=== PATIENT | female | born 1965 | race American Indian/Alaskan Native ===

== ENCOUNTER 2016-12-02 16:05 | Emergency (ER) | payer BC, OTHER ==
--- NOTE | 2016-12-02 21:05 | Emergency Department Report ---
ED Lower Extremity HPI - General Chief Complaint: Extremity Injury, Lower Stated Complaint: LFT FOOT PAIN Time Seen by Provider: 12/02/16 21:00 Source: patient Mode of arrival: Wheelchair Limitations: No Limitations - History of Present Illness Initial Comments: 51-year-old female comes in with complaint of pain and swelling to her left foot 3 days. She reports that the pain is the ball of her foot. She does admit that she had a fall a couple weeks ago she denied any injury at that time now she states she can't put her shoe on since yesterday. She does have a past medical history of diabetes she is on insulin Novolin 70/30 12 units twice a day. As well as hypertension she is on the nifedipine 30 mg one tablet by mouth daily. Injury: Foot: Left Type of Injury: unknown Place: home Severity: moderate Context: fall - Related Data Home Medications Medication Instructions Recorded Confirmed Last Taken Insulin NPH/Regular [NovoLIN 70/30] 7 unit SUB-Q BIDDIAB 05/13/15 05/13/1505/12 14 units Previous Rx's Medication Instructions Recorded Last Taken Type NIFEdipine XL [Procardia Xl] 30 mg PO QDAY #30 tablet 05/13/15 Unknown Rx Ibuprofen [Motrin 600 MG tab] 600 mg PO Q8H PRN #60 tablet 12/02/16 Unknown Rx Allergies Allergy/AdvReac Type Severity Reaction Status Date / Time No Known Allergies Allergy Verified 12/02/16 17:08 ED Review of Systems ROS: Stated complaint: LFT FOOT PAIN Other details as noted in HPI Constitutional: no symptoms reported Musculoskeletal: joint swelling, arthralgia ED Past Medical Hx - Past Medical History Hx Hypertension: Yes Hx Diabetes: Yes Hx Asthma: Yes Additional medical history: bronchitis - Surgical History Additional Surgical History: tubal ligation. LEFT ELBOW SURGERY - Social History Smoking Status: Current Every Day Smoker Substance Use Type: Alcohol - Medications Home Medications: Home Medications Medication Instructions Recorded Confirmed Last Taken Type Insulin NPH/Regular [NovoLIN 70/30] 7 unit SUB-Q BIDDIAB 05/13/15 05/13/1505/12 History 14 units NIFEdipine XL [Procardia Xl] 30 mg PO QDAY #30 tablet 05/13/15 Unknown Rx Ibuprofen [Motrin 600 MG tab] 600 mg PO Q8H PRN #60 tablet 12/02/16 Unknown Rx ED Physical Exam - General Limitations: No Limitations General appearance: alert, in no apparent distress - Head Head exam: Present: atraumatic, normocephalic - Expanded Lower Extremity Exam Left Ankle exam: Present: normal inspection Foot/Toe exam: Present: full ROM (elicits pain), tenderness (Ball of the foot), swelling (mouth swelling to the top of the foot) Gait: Positive: not tested/not observed ED Course Vital Signs 12/02/16 12/02/16 17:11 23:03 Temperature 98.4 F Pulse Rate 107 H 96 H Respiratory 18 18 Rate Blood Pressure 164/97 Blood Pressure 144/86 [Left] O2 Sat by Pulse 95 100 Oximetry ED Lower Extremity MDM - Radiology Data Radiology results: image reviewed FINDINGS: There is no evidence for acute fracture or dislocation. Mild soft tissue swelling in the dorsum of the midfoot is seen. No radiopaque foreign bodies are seen. Bony mineralization is normal. Joint spaces are maintained. Large spurs off the plantar and posterior aspects of the calcaneus are noted. IMPRESSION: No acute bony abnormality noted. Soft tissue swelling of the dorsal midfoot. - Medical Decision Making Patient's been evaluated by this provider and faster. Discussed with patient that we will go ahead and do an x-ray of her left foot to be sure there is no pathology for her reason for foot pain. Verbalized understanding Critical care attestation.: If time is entered above; I have spent that time in minutes in the direct care of this critically ill patient, excluding procedure time. ED Disposition Clinical Impression: Bone spur on posterior portion of calcaneus Sprain of left foot Qualifiers: Encounter type: initial encounter Qualified Code(s): S93.602A - Unspecified sprain of left foot, initial encounter Disposition: DISCHARGED TO HOME OR SELFCARE Is pt being admited?: No Does the pt Need Aspirin: No Condition: Stable Instructions: Foot Sprain (ED) Additional Instructions: Very importantly to follow-up with a director of training. We have referred to Dr. Desir. Take pain medicine when necessary. Prescriptions: Ibuprofen [Motrin 600 MG tab] 600 mg PO Q8H PRN #60 tablet PRN Reason: Pain Referrals: PRIMARY CARE,MD [Primary Care Provider] - 3-5 Days VIOLET DESIR DPM [Staff Physician] - 3-5 Days
[2016-12-02] MEDS ORDERED: MOTRIN PO ONE (21:55)
--- NOTE | 2016-12-02 23:02 | XRay Report ---
FINAL REPORT EXAM: XR FOOT 2V LT HISTORY: fell having pain and swelling TECHNIQUE: AP and lateral portable views of the left foot PRIORS: None. FINDINGS: There is no evidence for acute fracture or dislocation. Mild soft tissue swelling in the dorsum of the midfoot is seen. No radiopaque foreign bodies are seen. Bony mineralization is normal. Joint spaces are maintained. Large spurs off the plantar and posterior aspects of the calcaneus are noted. IMPRESSION: No acute bony abnormality noted. Soft tissue swelling of the dorsal midfoot.
[2016-12-02 23:03] VITALS: BP 144/86
== END 2016-12-02 23:35 | disposition home or self-care (01) ==
LOC: ED 16:05
DX: S93.602A Unspecified sprain of left foot, initial encounter (principal); M77.30 Calcaneal spur, unspecified foot; I10 Essential (primary) hypertension; E11.9 Type 2 diabetes mellitus without complications; J45.909 Unspecified asthma, uncomplicated; F17.200 Nicotine dependence, unspecified, uncomplicated; Z98.51 Tubal ligation status; W20.8XXA Other cause of strike by thrown, projected or falling object, initial encounter; Y93.89 Activity, other specified; Y99.8 Other external cause status; Y92.098 Other place in other non-institutional residence as the place of occurrence of the external cause
CPT/HCPCS: 99283

== ENCOUNTER 2019-10-14 10:34 | Inpatient (IN) | payer BC, MEDICAID, OTHER ==
--- NOTE | 2019-10-14 15:21 | XRay Report ---
CHEST 2 VIEWS INDICATION / CLINICAL INFORMATION: sob. COMPARISON: 05/09/15 FINDINGS: SUPPORT DEVICES: None. HEART / MEDIASTINUM: Heart is enlarged but stable. Mild pulmonary venous hypertension. LUNGS / PLEURA: No significant pulmonary or pleural abnormality. No pneumothorax. ADDITIONAL FINDINGS: No significant additional findings. IMPRESSION: 1. Cardiomegaly and pulmonary venous hypertension. No overt pulmonary edema. Signer Name: Lindy Almanza MD Signed: 10/14/2019 3:17 PM Workstation Name: [id number]
--- NOTE | 2019-10-14 16:04 | Emergency Department Report ---
<VLADIMIR FERNANDES III - Last Filed: 10/14/19 18:58> ED General Adult HPI - General Chief complaint: Adult Asthma Stated complaint: LEG PAIN/SOB Time Seen by Provider: 10/14/19 14:42 - Related Data Home Medications Medication Instructions Recorded Confirmed Last Taken Insulin NPH/Regular [NovoLIN 70/30] 7 unit SUB-Q BIDDIAB 05/13/15 05/13/15 05/12/15 14 units Previous Rx's Medication Instructions Recorded Last Taken Type NIFEdipine XL [Procardia Xl] 30 mg PO QDAY #30 tablet 05/13/15 Unknown Rx Ibuprofen [Motrin 600 MG tab] 600 mg PO Q8H PRN #60 tablet 12/02/16 Unknown Rx Allergies Allergy/AdvReac Type Severity Reaction Status Date / Time No Known Allergies Allergy Verified 12/02/16 17:08 ED Past Medical Hx - Medications Home Medications: Home Medications Medication Instructions Recorded Confirmed Last Taken Type Insulin NPH/Regular [NovoLIN 70/30] 7 unit SUB-Q BIDDIAB 05/13/15 05/13/15 05/12/15 History 14 units NIFEdipine XL [Procardia Xl] 30 mg PO QDAY #30 tablet 05/13/15 Unknown Rx Ibuprofen [Motrin 600 MG tab] 600 mg PO Q8H PRN #60 tablet 12/02/16 Unknown Rx ED Course - Reevaluation(s) Reevaluation #1: I discussed case with mid-level. Patient requires admission. I discussed plan of care with patient. I discussed all results patient. Patient agrees with plan of care and admission. Patient will be admitted to the hospitalist service. 10/14/19 18:58 - Consultations Consultation #1: Hospitalist consult for admission. Hospitalist to admit patient. 10/14/19 18:58 ED Medical Decision Making - Lab Data Result diagrams: 10/14/19 16:02 10/14/19 16:02 Critical Care Time: Yes Critical care time in (mins) excluding proc time.: 35 Critical Care Time: 35 minutes ED Disposition Clinical Impression: SOB (shortness of breath), KIDD (dyspnea on exertion), New onset of congestive heart failure, Pulmonary edema cardiac cause, Lower extremity edema CHF (congestive heart failure) Qualifiers: Heart failure type: unspecified Heart failure chronicity: acute Qualified Code(s): I50.9 - Heart failure, unspecified Disposition: DC-09 OP ADMIT IP TO THIS HOSP Is pt being admited?: Yes Does the pt Need Aspirin: No Condition: Critical Time of Disposition: 19:00 <RASTA GARCIA - Last Filed: 10/14/19 19:10> ED General Adult HPI - General Source: patient Mode of arrival: Ambulatory Limitations: No Limitations - History of Present Illness Initial comments: Patient is a 54-year-old female presents emergency room with complaints of shortness of breath that began 2 days ago. She states her shortness of breath is worse with exertion. She states that she takes approximately 6-7 steps and begins to feel short of breath. She states she has associated bilateral leg swelling and pain. She denies any cough, fever, chest pain, recent illness, palpitations, any other symptoms. Patient states she has a past medical history of diabetes, asthma, hypertension. She denies any allergies medications. ED Review of Systems ROS: Stated complaint: LEG PAIN/SOB Other details as noted in HPI Comment: All other systems reviewed and negative ED Past Medical Hx - Past Medical History Hx Hypertension: Yes Hx Diabetes: Yes Hx Asthma: Yes Additional medical history: bronchitis - Surgical History Additional Surgical History: tubal ligation. LEFT ELBOW SURGERY - Social History Smoking Status: Current Every Day Smoker Substance Use Type: Alcohol ED Physical Exam - General Limitations: No Limitations General appearance: alert, in no apparent distress - Head Head exam: Present: atraumatic, normocephalic - Eye Eye exam: Present: normal appearance - ENT ENT exam: Present: mucous membranes moist - Respiratory Respiratory exam: Present: normal lung sounds bilaterally. Absent: respiratory distress, wheezes, rales, rhonchi, stridor, chest wall tenderness, accessory muscle use, decreased breath sounds, prolonged expiratory - Cardiovascular Cardiovascular Exam: Present: regular rate, normal rhythm, normal heart sounds. Absent: systolic murmur, diastolic murmur, rubs, gallop - Extremities Exam Extremities exam: Present: pedal edema (bilateral LE edema, right greater than left, skin is very dry and hardened on the bilateral LE, no erythema, no drainage, no increased warmth) - Neurological Exam Neurological exam: Present: alert, oriented X3 - Psychiatric Psychiatric exam: Present: normal affect, normal mood - Skin Skin exam: Present: warm, dry, intact ED Course Vital Signs 12/14/19 10:55 Temperature 98.3 F Pulse Rate 93 H Respiratory 16 Rate Blood Pressure 167/72 [Left] O2 Sat by Pulse 96 Oximetry ED Medical Decision Making - Lab Data Result diagrams: 10/14/19 16:02 10/14/19 16:02 Lab Results 10/14/19 10/14/19 10/14/19 Range/Units 10:54 16:02 16:02 WBC 6.8 (4.5-11.0) K/mm3 RBC 5.32 H (3.65-5.03) M/mm3 Hgb 14.4 H (10.1-14.3) gm/dl Hct 42.5 (30.3-42.9) % MCV 80 (79-97) fl MCH 27 L (28-32) pg MCHC 34 (30-34) % RDW 15.6 H (13.2-15.2) % Plt Count 276 (140-440) K/mm3 Lymph % (Auto) 21.7 (13.4-35.0) % [place] % (Auto) 9.4 H (0.0-7.3) % Eos % (Auto) 1.0 (0.0-4.3) % Baso % (Auto) 1.0 (0.0-1.8) % Lymph # 1.5 (1.2-5.4) K/mm3 [place] # 0.6 (0.0-0.8) K/mm3 Eos # 0.1 (0.0-0.4) K/mm3 Baso # 0.1 (0.0-0.1) K/mm3 Seg Neutrophils % 66.9 (40.0-70.0) % Seg Neutrophils # 4.5 (1.8-7.7) K/mm3 Sodium 136 L (137-145) mmol/L Potassium 4.3 (3.6-5.0) mmol/L Chloride 94.0 L (98-107) mmol/L Carbon Dioxide 27 (22-30) mmol/L Anion Gap 19 mmol/L BUN 11 (7-17) mg/dL Creatinine 0.5 L (0.7-1.2) mg/dL Estimated GFR > 60 ml/min BUN/Creatinine Ratio 22 % Glucose 372 H (65-100) mg/dL POC Glucose 280 H (70-105) Calcium 9.3 (8.4-10.2) mg/dL Total Bilirubin 0.50 (0.1-1.2) mg/dL AST 14 (5-40) units/L ALT 11 (7-56) units/L Alkaline Phosphatase 114 (35-129) units/L Troponin T (0.00-0.029) ng/mL NT-Pro-B Natriuret Pep 503.0 (0-900) pg/mL Total Protein 7.5 (6.3-8.2) g/dL Albumin 3.4 L (3.9-5) g/dL Albumin/Globulin Ratio 0.8 % 10/14/19 Range/Units 17:57 WBC (4.5-11.0) K/mm3 RBC (3.65-5.03) M/mm3 Hgb (10.1-14.3) gm/dl Hct (30.3-42.9) % MCV (79-97) fl MCH (28-32) pg MCHC (30-34) % RDW (13.2-15.2) % Plt Count (140-440) K/mm3 Lymph % (Auto) (13.4-35.0) % [place] % (Auto) (0.0-7.3) % Eos % (Auto) (0.0-4.3) % Baso % (Auto) (0.0-1.8) % Lymph # (1.2-5.4) K/mm3 [place] # (0.0-0.8) K/mm3 Eos # (0.0-0.4) K/mm3 Baso # (0.0-0.1) K/mm3 Seg Neutrophils % (40.0-70.0) % Seg Neutrophils # (1.8-7.7) K/mm3 Sodium (137-145) mmol/L Potassium (3.6-5.0) mmol/L Chloride (98-107) mmol/L Carbon Dioxide (22-30) mmol/L Anion Gap mmol/L BUN (7-17) mg/dL Creatinine (0.7-1.2) mg/dL Estimated GFR ml/min BUN/Creatinine Ratio % Glucose (65-100) mg/dL POC Glucose (70-105) Calcium (8.4-10.2) mg/dL Total Bilirubin (0.1-1.2) mg/dL AST (5-40) units/L ALT (7-56) units/L Alkaline Phosphatase (35-129) units/L Troponin T < 0.010 (0.00-0.029) ng/mL NT-Pro-B Natriuret Pep (0-900) pg/mL Total Protein (6.3-8.2) g/dL Albumin (3.9-5) g/dL Albumin/Globulin Ratio % - Radiology Data Radiology results: report reviewed DUPLEX DOPPLER LOWER EXTREMITY VEINS, BILATERAL INDICATION / CLINICAL INFORMATION: BLE, right greater than left. TECHNIQUE: Duplex doppler imaging was performed through the veins of both lower extremities using venous compression and other maneuvers. COMPARISON: None available. FINDINGS: RIGHT COMMON FEMORAL VEIN: Negative. RIGHT FEMORAL VEIN: Negative. RIGHT POPLITEAL VEIN: Negative. RIGHT CALF VEINS: Negative. LEFT COMMON FEMORAL VEIN: Negative. LEFT FEMORAL VEIN: Negative. LEFT POPLITEAL VEIN: Negative. LEFT CALF VEINS: Negative. ADDITIONAL FINDINGS: Bilateral enlarged groin lymph nodes measuring up to 1.5 cm in short axis. IMPRESSION: 1. No sonographic evidence for DVT in either lower extremity. 2. Bilateral enlarged groin lymph nodes. Signer Name: Lindy Almanza MD Signed: 10/14/2019 4:12 PM Workstation Name: [id number] Transcribed By: DT Dictated By: Shamar Almanza MD Electronically Authenticated By: Shamar Almanza MD Signed Date/Time: 10/14/19 1612 CTA CHEST WITH CONTRAST INDICATION / CLINICAL INFORMATION: SOB, hypoxia. TECHNIQUE: Axial CT images were obtained through the chest after injection of 100 MLO Omnipaque 350 IV contrast. 3 plane MIP and/or 3D reconstructions were produced. All CT scans at this location are per formed using CT dose reduction for ALARA by means of automated exposure control. COMPARISON: CT dated 05/13/15 FINDINGS: PULMONARY ARTERIES: No pulmonary emboli. THORACIC AORTA: No significant abnormality. HEART: Enlarged but stable. Mitral valve calcifications are unchanged. CORONARY ARTERIES: No significant calcification. MEDIASTINUM / MILO: No significant abnormality. PLEURA: No pleural effusion. No pneumothorax. LUNGS: Mild interstitial pulmonary edema. Peribronchial cuffing. ADDITIONAL FINDINGS: Right thyroid nodule is unchanged. UPPER ABDOMEN: No acute findings. SKELETAL STRUCTURES: No significant osseous abnormality. IMPRESSION: 1. No CT evidence for pulmonary embolism. 2. Cardiomegaly with mild interstitial pulmonary edema. Signer Name: Lindy Almanza MD Signed: 10/14/2019 6:19 PM Workstation Name: [id number] Transcribed By: DT Dictated By: Shamar Almanza MD Electronically Authenticated By: Shamar Almanza MD Signed Date/Time: 10/14/191818 DD/ 16 TD/TT: CHEST 2 VIEWS INDICATION / CLINICAL INFORMATION: sob. COMPARISON: 05/09/15 FINDINGS: SUPPORT DEVICES: None. HEART / MEDIASTINUM: Heart is enlarged but stable. Mild pulmonary venous hypertension. LUNGS / PLEURA: No significant pulmonary or pleural abnormality. No pneumothorax. ADDITIONAL FINDINGS: No significant additional findings. IMPRESSION: 1. Cardiomegaly and pulmonary venous hypertension. No overt pulmonary edema. Signer Name: Lindy Almanza MD Signed: 10/14/2019 3:17 PM Workstation Name: [id number] Transcribed By: DT Dictated By: Shamar Almanza MD Electronically Authenticated By: Shamar Almanza MD Signed Date/Time: 10/14/19 1517 - Medical Decision Making Patient is a 54-year-old female presents emergency room with complaints of shortness of breath that began 2 days ago. She states her shortness of breath is worse with exertion. She states that she takes approximately 6-7 steps and begins to feel short of breath. She states she has associated bilateral leg swelling and pain. She denies any cough, fever, chest pain, recent illness, palpitations, any other symptoms. Patient states she has a past medical history of diabetes, asthma, hypertension. She denies any allergies medications. Upon laying flat patient's oxygen saturation drops to 88%. Upon ambulating patient saturation is around 90%. Patient denies any history of pulmonary hypertension or CHF. CXR: . Cardiomegaly and pulmonary venous hypertension. No overt pulmonary edema. CTA chest: 1. No CT evidence for pulmonary embolism. 2. Cardiomegaly with mild interstitial pulmonary edema. doppler US BLE: 1. No sonographic evidence for DVT in either lower extremity. 2. Bilateral enlarged groin lymph nodes. Patient was evaluated by Dr. Marivel Reynolds who recommended admission for new onset CHF versus pulmonary hypertension. discussed case with Dr. Fernandes who presented patient to the hospitalist for admission. - Differential Diagnosis CHF, pulmonary HTN, AAA, PNA, PTE, asthma Critical care attestation.: If time is entered above; I have spent that time in minutes in the direct care of this critically ill patient, excluding procedure time. ED Disposition Is pt being admited?: Yes Does the pt Need Aspirin: No
--- NOTE | 2019-10-14 16:17 | Vascular Lab Report ---
DUPLEX DOPPLER LOWER EXTREMITY VEINS, BILATERAL INDICATION / CLINICAL INFORMATION: BLE, right greater than left. TECHNIQUE: Duplex doppler imaging was performed through the veins of both lower extremities using venous michelle jennie and other maneuvers. COMPARISON: None available. FINDINGS: RIGHT COMMON FEMORAL VEIN: Negative. RIGHT FEMORAL VEIN: Negative. RIGHT POPLITEAL VEIN: Negative. RIGHT CALF VEINS: Negative. LEFT COMMON FEMORAL VEIN: Negative. LEFT FEMORAL VEIN: Negative. LEFT POPLITEAL VEIN: Negative. LEFT CALF VEINS: Negative. ADDITIONAL FINDINGS: Bilateral enlarged groin lymph nodes measuring up to 1.5 cm in short axis. IMPRESSION: 1. No sonographic evidence for DVT in either lower extremity. 2. Bilateral enlarged groin lymph nodes. Signer Name: Lindy Almanza MD Signed: 10/14/2019 4:12 PM Workstation Name: [id number]
[2019-10-14 16:19] LABS: Basophils # (Auto) 0.1 K/mm3 (0.0-0.1); Eosinophils # (Auto) 0.1 K/mm3 (0.0-0.4); Hematocrit 42.5 % (30.3-42.9); Hemoglobin 14.4 gm/dl (10.1-14.3); Lymphocytes # (Auto) 1.5 K/mm3 (1.2-5.4); Lymphocytes % (Auto) 21.7 % (13.4-35.0); Mean Corpuscular HGB Conc 34 % (30-34); Mean Corpuscular Volume 80 fl (79-97); Monocytes # (Auto) 0.6 K/mm3 (0.0-0.8); Monocytes % (Auto) 9.4 % (0.0-7.3); Platelet Count 276 K/mm3 (140-440); Red Blood Count 5.32 M/mm3 (3.65-5.03); Red Cell Distribution Width 15.6 % (13.2-15.2)
--- NOTE | 2019-10-14 16:33 | Event Note ---
Face to Face: For this encounter I have reviewed the PA/CONSERVATION AGENT documentation, treatment plan, medical decision making, and I had face to face time with this patient. Mrs. Davis is a 54-year-old female with history of hypertension, diabetes mellitus, asthma who presents for shortness of breath for 2 days. Shortness of breath is exertional. She is only able to walk since the 6-7 steps at a time due to the shortness of breath. I have reviewed chest radiograph images and radiology impression. I recommend CT angiogram chest. I am concerned for acute heart failure. On exam her lower extremities has lichenified skin with obvious chronic venous stasis. Recommend hospitalist service admission for new onset acute heart failure
[2019-10-14 16:47] LABS: Alanine Aminotransferase 11 units/L (7-56); Albumin 3.4 g/dL (3.9-5); BUN/Creatinine Ratio 22; Blood Urea Nitrogen 11 mg/dL (7-17); Calcium 9.3 mg/dL (8.4-10.2); Hemolysis Index 3
--- NOTE | 2019-10-14 18:23 | Cat Scan Report ---
CTA CHEST WITH CONTRAST INDICATION / CLINICAL INFORMATION: SOB, hypoxia. TECHNIQUE: Axial CT images were obtained through the chest after injection of 100 MLO Omnipaque 350 IV contrast. 3 plane MIP and/or 3D reconstructions were produced. All CT scans at this location are performed usi ng CT dose reduction for ALARA by means of automated exposure control. COMPARISON: CT dated 05/13/15 FINDINGS: PULMONARY ARTERIES: No pulmonary emboli. THORACIC AORTA: No significant abnormality. HEART: Enlarged but stable. Mitral valve calcifications are unchanged. CORONARY ARTERIES: No significant calcification. MEDIASTINUM / MILO: No significant abnormality. PLEURA: No pleural effusion. No pneumothorax. LUNGS: Mild interstitial pulmonary edema. Peribronchial cuffing. ADDITIONAL FINDINGS: Right thyroid nodule is unchanged. UPPER ABDOMEN: No acute findings. SKELETAL STRUCTURES: No significant osseous abnormality. IMPRESSION: 1. No CT evidence for pulmonary embolism. 2. Cardiomegaly with mild interstitial pulmonary edema. Signer Name: Lindy Almanza MD Signed: 10/14/2019 6:19 PM Workstation Name: [id number]
--- NOTE | 2019-10-14 18:57 | History and Physical Report ---
History of Present Illness Chief complaint: I feel weak History of present illness: 54 YO Female with MO, Obesity Hypoventilation Syndrome, HTN, DM, Lymphedema, Asthma presents to ED for evaluation. Pt states that she has experienced shortness of breath over the past 4 days with worsening symptoms over the past 2 days. Pt acknowledges decreased exercise tolerance, Orthopnea/PND, dypsnea at rest, dypsnea on exertion, leg edema. Pt transported to [facility] via private vehicle. Pt seen and evaluated in ED and found to have symptoms consistent with Systolic/Diastolic CHF as well as Chest x ray with pulmonary congestion. Pt admitted to telemetry and treated with supplemental oxygen and supportive care, Pt denies fever, chills, CP, Palpitations, NVD, Trauma, BRBPR, Productive Cough, Wheezing, sore Throat, skin rash or recent ill contacts. Prior admission on 11/01/14 reviewed. Cardiology consulted in ED. Echo pending at time of admission. All medication listed at time of admission has been reconciled. Past History Past Medical History: other (see HPI) Past Surgical History: No surgical history, Other (reviewed) Social history: single Family history: diabetes, hypertension Medications and Allergies Allergies Allergy/AdvReac Type Severity Reaction Status Date / Time No Known Allergies Allergy Verified 12/02/16 17:08 Home Medications Medication Instructions Recorded Confirmed Last Taken Type Insulin NPH/Regular [NovoLIN 70/30] 7 unit SUB-Q BIDDIAB 05/13/15 05/13/15 05/12/15 History 14 units NIFEdipine XL [Procardia Xl] 30 mg PO QDAY #30 tablet 05/13/15 Unknown Rx Ibuprofen [Motrin 600 MG tab] 600 mg PO Q8H PRN #60 tablet 12/02/16 Unknown Rx Review of Systems Constitutional: weakness, no weight loss, no weight gain, no fever Ears, nose, mouth and throat: no ear pain, no ear discharge, no tinnitis, no decreased hearing, no nasal congestion Breasts: no change in shape, no swelling, no mass Cardiovascular: orthopnea, edema, shortness of breath, dyspnea on exertion, paroxysmal nocturnal dyspnea, decreased exercise tolerance Respiratory: no cough, no cough with sputum, no excessive sputum, no hemoptysis Gastrointestinal: no abdominal pain, no nausea, no vomiting, no hematemesis Genitourinary Female: no pelvic pain, no menorrhagia, no dysuria, no incomplete emptying, no urge incontinence Rectal: no pain, no incontinence, no bleeding Musculoskeletal: no neck stiffness, no neck pain Integumentary: no rash, no redness, no wounds Neurological: no transient paralysis, no paralysis, no parathesias, no numbness, no tingling, no seizures, no syncope Psychiatric: no anxiety, no memory loss, no change in sleep habits, no insomnia, no hypersomnia, no change in libido Endocrine: no cold intolerance, no heat intolerance, no polyphagia, no polydipsia, no polyuria Hematologic/Lymphatic: lymphedema, no easy bruising, no easy bleeding, no lymphadenopathy Allergic/Immunologic: no urticaria, no allergic rhinitis, no persistent infections, no anaphylaxis Exam - Constitutional Vitals: Temp Pulse Resp BP Pulse Ox 98.3 F 93 H 16 167/72 96 10/14/19 10:55 10/14/19 10:55 10/14/19 10:55 10/14/19 10:55 10/14/19 10:55 General appearance: Present: mild distress, obese - EENT Eyes: Present: PERRL ENT: hearing intact, clear oral mucosa - Neck Neck: Present: supple, normal ROM - Respiratory Respiratory effort: normal Respiratory: bilateral: diminished, rhonchi - Cardiovascular Heart Sounds: Present: S1 & S2. Absent: rub, click - Extremities Extremities: pulses symmetrical Extremity abnormal: edema Peripheral Pulses: within normal limits - Abdominal General gastrointestinal: Present: soft, non-tender, non-distended, normal bowel sounds Female genitourinary: Present: normal - Integumentary Integumentary: Present: clear, warm, dry - Musculoskeletal Musculoskeletal: generalized weakness - Psychiatric Psychiatric: appropriate mood/affect, intact judgment & insight - Neurologic Neurologic: CNII-XII intact, moves all extremities Results - Labs CBC & Chem 7: 10/14/19 16:02 10/14/19 16:02 Labs: Abnormal lab results 10/14/19 10/14/19 10/14/19 Range/Units 10:54 16:02 16:02 RBC 5.32 H (3.65-5.03) M/mm3 Hgb 14.4 H (10.1-14.3) gm/dl MCH 27 L (28-32) pg RDW 15.6 H (13.2-15.2) % [place] % (Auto) 9.4 H (0.0-7.3) % Sodium 136 L (137-145) mmol/L Chloride 94.0 L (98-107) mmol/L Creatinine 0.5 L (0.7-1.2) mg/dL Glucose 372 H (65-100) mg/dL POC Glucose 280 H (70-105) Albumin 3.4 L (3.9-5) g/dL Assessment and Plan - Patient Problems (1) CHF (congestive heart failure) Current Visit: Yes Status: Acute Qualifiers: Heart failure type: unspecified Heart failure chronicity: acute Qualified Code(s): I50.9 - Heart failure, unspecified Plan to address problem: Admit to telemetry, Echo, thyroid panel, chest x ray, strict I/O, daily weight, diuresis, afterload reduction, blood pressure control, supplemental oxygen, pulse oximetry, cardiology consulted in ED. (2) Obesity hypoventilation syndrome Current Visit: Yes Status: Acute Plan to address problem: supplemental oxygen, nebulizer therapy, NIPPV as clinically indicated, pulse oximetry (3) Diabetes Current Visit: Yes Status: Acute Plan to address problem: ADA diet, insulin, accu check, hypoglycemia protocol (4) HTN (hypertension) Current Visit: Yes Status: Acute Qualifiers: Hypertension type: essential hypertension Qualified Code(s): I10 - Essential (primary) hypertension Plan to address problem: Monitor BP q shift, continue medical management. (5) DVT prophylaxis Current Visit: Yes Status: Acute Plan to address problem: SCD to BLE while in bed, prophylactic lovenox
[2019-10-14] MEDS ORDERED: ALBUTEROL 2.5 MG/3 ML NEBU IH PRN (18:58)
[2019-10-14] MEDS ORDERED: ONDANSETRON 4 MG/2 ML INJ IV PRN (18:58)
[2019-10-14 20:04] LABS: Free T4 (Free Thyroxine) 1.11 ng/dL (0.76-1.46)
[2019-10-14] MEDS: HEPARIN 5,000 UNIT/1 ML VIAL SUB-Q SCH (22:30)
[2019-10-14] MEDS: METOPROLOL TARTRATE 25 MG TAB PO SCH (22:31)
[2019-10-14] MEDS: ACETAMINOPHEN 325 MG TAB PO PRN (22:32)
[2019-10-14] MEDS: LISINOPRIL 5 MG TAB PO SCH (22:32)
[2019-10-14] MEDS: INSULIN LISPRO 100 UNIT/ML SUB-Q SCH (22:33)
[2019-10-14] MEDS ORDERED: diphenhydrAMINE 25 MG CAP PO ONE (23:00)
[2019-10-14 23:36] LABS: Bacteria,Urine 1+ /HPF (Negative); Bilirubin,Urine NEG (Negative); Blood,Urine MOD (Negative); Color,Urine Yellow (Yellow); Mucus,Urine FEW /HPF; Urobilinogen,Urine < 2.0 mg/dL (<2.0)
[2019-10-15] MEDS: NIFEdipine XL 30 MG TAB PO SCH (05:54)
[2019-10-15] MEDS: FUROSEMIDE 20 MG/2 ML INJ IV SCH ×2 (05:54→17:34)
[2019-10-15 08:21] LABS: BUN/Creatinine Ratio 20; Blood Urea Nitrogen 10 mg/dL (7-17); Hemolysis Index 16
[2019-10-15] MEDS: INSULIN LISPRO 100 UNIT/ML SUB-Q SCH ×4 (08:49→22:14)
[2019-10-15] MEDS: METOPROLOL TARTRATE 25 MG TAB PO SCH ×2 (09:04→17:34)
[2019-10-15] MEDS: HEPARIN 5,000 UNIT/1 ML VIAL SUB-Q SCH ×2 (09:06→22:13)
[2019-10-15] MEDS: LISINOPRIL 5 MG TAB PO SCH ×2 (09:06→22:12)
--- NOTE | 2019-10-15 09:49 | Progress Note ---
Assessment and Plan Assessment and plan: Acute diastolic CHF (congestive heart failure) Current Visit: Yes Status: Acute Heart failure medications, input output monitoring, follow echocardiogram Cardiology following, low-sodium diet, fluid restriction, -- Obesity hypoventilation syndrome Current Visit: Yes Status: Acute supplemental oxygen, nebulizer therapy, NIPPV as clinically indicated, pulse oximetry Titrate O2 sats to more than 90% Outpatient sleep study to rule out obstructive sleep apnea CPAP BiPAP at night and as needed --Type II diabetes mellitus; uncontrolled Current Visit: Yes Status: Acute Accu check, sliding scale coverage , ADA diet Insulin as needed ,hypoglycemia protocol --HTN (hypertension); moderate control Current Visit: Yes Status: Acute Continue current antihypertensives, PRN medications --Morbid obesity; BMI >50 Dietary modification exercise as tolerated and weight reduction Patient may benefit from evaluation by bariatric team For weight reduction as outpatient when medically stable --DVT prophylaxis Current Visit: Yes Status: Acute SCD to BLE while in bed, prophylactic lovenox. Closely monitor the patient and adjust management as needed Plan of care reviewed with the patient and her nurse Disposition; possible discharge in 1 to 2 days if stable And when cleared by cardiology History Interval history: Patient seen and examined medical records reviewed Patient complains of mild shortness of breath Blood sugars are uncontrolled Patient denies any chest pain Vital signs reviewed Hospitalist Physical - Constitutional Vitals: Temp Pulse Resp BP Pulse Ox 98.3 F 83 18 155/73 96 10/15/19 08:24 10/15/19 09:06 10/15/19 08:24 10/15/19 08:24 10/15/19 09:05 General appearance: Present: mild distress, well-nourished, obese (Morbidly obese) - EENT Eyes: Present: PERRL, EOM intact - Neck Neck: Present: supple, normal ROM - Respiratory Respiratory effort: normal Respiratory: bilateral: diminished, rales, negative: rhonchi, wheezing - Cardiovascular Rhythm: regular Heart Sounds: Present: S1 & S2 - Extremities Extremities: no ischemia, No edema - Abdominal General gastrointestinal: soft, non-tender, non-distended, normal bowel sounds - Integumentary Integumentary: Present: clear, warm - Psychiatric Psychiatric: appropriate mood/affect, cooperative - Neurologic Neurologic: CNII-XII intact, moves all extremities Results - Labs CBC & Chem 7: 10/14/19 16:02 10/15/19 06:58 Labs: Laboratory Last Values WBC 6.8 K/mm3 (4.5-11.0) 10/14/19 16:02 RBC 5.32 M/mm3 (3.65-5.03) H 10/14/19 16:02 Hgb 14.4 gm/dl (10.1-14.3) H 10/14/19 16:02 Hct 42.5 % (30.3-42.9) 10/14/19 16:02 MCV 80 fl (79-97) 10/14/19 16:02 MCH 27 pg (28-32) L 10/14/19 16:02 MCHC 34 % (30-34) 10/14/19 16:02 RDW 15.6 % (13.2-15.2) H 10/14/19 16:02 Plt Count 276 K/mm3 (140-440) 10/14/19 16:02 Lymph % (Auto) 21.7 % (13.4-35.0) 10/14/19 16:02 [place] % (Auto) 9.4 % (0.0-7.3) H 10/14/19 16:02 Eos % (Auto) 1.0 % (0.0-4.3) 10/14/19 16:02 Baso % (Auto) 1.0 % (0.0-1.8) 10/14/19 16:02 Lymph # 1.5 K/mm3 (1.2-5.4) 10/14/19 16:02 [place] # 0.6 K/mm3 (0.0-0.8) 10/14/19 16:02 Eos # 0.1 K/mm3 (0.0-0.4) 10/14/19 16:02 Baso # 0.1 K/mm3 (0.0-0.1) 10/14/19 16:02 Seg Neutrophils % 66.9 % (40.0-70.0) 10/14/19 16:02 Seg Neutrophils # 4.5 K/mm3 (1.8-7.7) 10/14/19 16:02 Sodium 138 mmol/L (137-145) 10/15/19 06:58 Potassium 3.7 mmol/L (3.6-5.0) 10/15/19 06:58 Chloride 95.2 mmol/L (98-107) L 10/15/19 06:58 Carbon Dioxide 26 mmol/L (22-30) 10/15/19 06:58 Anion Gap 21 mmol/L 10/15/19 06:58 BUN 10 mg/dL (7-17) 10/15/19 06:58 Creatinine 0.5 mg/dL (0.7-1.2) L 10/15/19 06:58 Estimated GFR > 60 ml/min 10/15/19 06:58 BUN/Creatinine Ratio 20 % 10/15/19 06:58 Glucose 310 mg/dL (65-100) H 10/15/19 06:58 POC Glucose 314 (70-105) H 10/15/19 07:41 Calcium 9.0 mg/dL (8.4-10.2) 10/15/19 06:58 Magnesium 1.70 mg/dL (1.7-2.3) 10/14/19 19:11 Total Bilirubin 0.50 mg/dL (0.1-1.2) 10/14/19 16:02 AST 14 units/L (5-40) 10/14/19 16:02 ALT 11 units/L (7-56) 10/14/19 16:02 Alkaline Phosphatase 114 units/L (35-129) 10/14/19 16:02 Troponin T < 0.010 ng/mL (0.00-0.029) 10/14/19 19:11 NT-Pro-B Natriuret Pep 503.0 pg/mL (0-900) 10/14/19 16:02 Total Protein 7.5 g/dL (6.3-8.2) 10/14/19 16:02 Albumin 3.4 g/dL (3.9-5) L 10/14/19 16:02 Albumin/Globulin Ratio 0.8 % 10/14/19 16:02 TSH 2.720 mlU/mL (0.270-4.200) 10/14/19 19:11 Free T4 1.11 ng/dL (0.76-1.46) 10/14/19 19:11 Urine Color Yellow (Yellow) 10/14/19 Unknown Urine Turbidity Slightly-cloudy (Clear) 10/14/19 Unknown Urine pH 5.0 (5.0-7.0) 10/14/19 Unknown Ur Specific [place] 1.029 (1.003-1.030) 10/14/19 Unknown Urine Protein 30 mg/dl mg/dL (Negative) 10/14/19 Unknown Urine Glucose (UA) >=500 mg/dL (Negative) 10/14/19 Unknown Urine Ketones Neg mg/dL (Negative) 10/14/19 Unknown Urine Blood Mod (Negative) 10/14/19 Unknown Urine Nitrite Neg (Negative) 10/14/19 Unknown Urine Bilirubin Neg (Negative) 10/14/19 Unknown Urine Urobilinogen < 2.0 mg/dL (<2.0) 10/14/19 Unknown Ur Leukocyte Esterase Neg (Negative) 10/14/19 Unknown Urine WBC (Auto) 1.0 /HPF (0.0-6.0) 10/14/19 Unknown Urine RBC (Auto) 3.0 /HPF (0.0-6.0) 10/14/19 Unknown U Epithel Cells (Auto) 7.0 /HPF (0-13.0) 10/14/19 Unknown Urine Bacteria (Auto) 1+ /HPF (Negative) 10/14/19 Unknown Urine Mucus Few /HPF 10/14/19 Unknown Active Medications - Current Medications Current Medications: Generic Name Dose Route Start Last Admin Trade Name Freq PRN Reason Stop Dose Admin Acetaminophen 650 mg 10/14/19 18:58 10/14/19 22:32 Tylenol PO 650 mg Q4H PRN Administration Pain MILD(1-3)/Fever >100.5/HORN Albuterol 2.5 mg 10/14/19 22:00 Proventil IH Q4HRT PRN Shortness Of Breath Furosemide 20 mg 10/15/19 06:00 10/15/19 05:54 Lasix IV 20 mg 0600,1800 ARIANA Administration Heparin Sodium (Porcine) 5,000 unit 10/14/19 22:00 10/15/19 09:06 Heparin SUB-Q 5,000 unit Q12HR ARIANA Administration Insulin Human Isoph/Insulin Regular 15 unit 10/15/19 17:00 Humulin 70/30 SUB-Q BIDDIAB ARIANA Insulin Human Isoph/Insulin Regular 10 unit 10/15/19 10:44 Humulin 70/30 SUB-Q 10/15/19 10:45 ONCE ONE Insulin Human Lispro 0 unit 10/14/19 23:15 10/15/19 08:49 Humalog SUB-Q 6 unit ACHS ARIANA Administration Protocol Lisinopril 5 mg 10/14/19 22:00 10/15/19 09:06 Zestril PO 5 mg BID ARIANA Administration Metoprolol Tartrate 12.5 mg 10/14/19 22:00 10/15/19 09:04 Metoprolol PO 12.5 mg BID@0800,1700 ARIANA Administration Nifedipine 30 mg 10/15/19 06:00 10/15/19 05:54 Procardia Xl PO 30 mg QDAY@0600 ARIANA Administration Ondansetron HCl 4 mg 10/14/19 18:58 Zofran IV Q8H PRN Nausea And Vomiting Sodium Chloride 10 ml 10/14/19 22:00 10/15/19 09:09 Sodium Chloride Flush Syringe 10 Ml IV 10 ml BID ARIANA Administration Sodium Chloride 10 ml 10/14/19 18:58 Sodium Chloride Flush Syringe 10 Ml IV PRN PRN LINE FLUSH
--- NOTE | 2019-10-15 10:31 | Consultation ---
History of Present Illness Consult date: 10/15/19 Consult reason: congestive heart failure History of present illness: 54-year-old obese -[place] female orthopnea and dyspnea on mild exer tion. Hi chest x-ray shows cardiomegaly with pulmonary vascular congestion patient admitted for congestive heart failure. She denies any chest pains at this time but states that she has not been compliant with DrRobbin patient's as an outpatient. Past History Past Medical History: anemia, diabetes, GERD, heart failure, hypertension, hyperlipidemia Past Surgical History: No surgical history, Other (reviewed) Social history: single Family history: diabetes, hypertension Medications and Allergies Allergies Allergy/AdvReac Type Severity Reaction Status Date / Time No Known Allergies Allergy Verified 12/02/16 17:08 Home Medications Medication Instructions Recorded Confirmed Last Taken Type Insulin NPH/Regular [NovoLIN 70/30] 7 unit SUB-Q BIDDIAB 05/13/15 10/15/19 05/12/15 History 14 units Ibuprofen [Motrin 600 MG tab] 600 mg PO Q8H PRN #60 tablet 12/02/16 10/15/19 Unknown Rx Active Meds: Active Medications Acetaminophen (Tylenol) 650 mg PO Q4H PRN PRN Reason: Pain MILD(1-3)/Fever >100.5/HORN Last Admin: 10/14/19 22:32 Dose: 650 mg Documented by: Albuterol (Proventil) 2.5 mg IH Q4HRT PRN PRN Reason: Shortness Of Breath Furosemide (Lasix) 20 mg IV 0600,1800 [facility] Last Admin: 10/15/19 05:54 Dose: 20 mg Documented by: Heparin Sodium (Porcine) (Heparin) 5,000 unit SUB-Q Q12HR [facility] Last Admin: 10/15/19 09:06 Dose: 5,000 unit Documented by: Insulin Human Isoph/Insulin Regular (Humulin 70/30) 15 unit SUB-Q BIDDIAB [facility] Insulin Human Isoph/Insulin Regular (Humulin 70/30) 10 unit SUB-Q ONCE ONE Stop: 10/15/19 10:45 Insulin Human Lispro (Humalog) 0 unit SUB-Q [facility]; Protocol Last Admin: 10/15/19 08:49 Dose: 6 unit Documented by: Lisinopril (Zestril) 5 mg PO BID [facility] Last Admin: 10/15/19 09:06 Dose: 5 mg Documented by: Metoprolol Tartrate (Metoprolol) 12.5 mg PO BID@0800,1700 [facility] Last Admin: 10/15/19 09:04 Dose: 12.5 mg Documented by: Nifedipine (Procardia Xl) 30 mg PO QDAY@0600 [facility] Last Admin: 10/15/19 05:54 Dose: 30 mg Documented by: Ondansetron HCl (Zofran) 4 mg IV Q8H PRN PRN Reason: Nausea And Vomiting Sodium Chloride (Sodium Chloride Flush Syringe 10 Ml) 10 ml IV BID [facility] Last Admin: 10/15/19 09:09 Dose: 10 ml Documented by: Sodium Chloride (Sodium Chloride Flush Syringe 10 Ml) 10 ml IV PRN PRN PRN Reason: LINE FLUSH Review of Systems Constitutional: weight gain, fatigue, weakness, no fever, no chills, no sweats Ears, nose, mouth and throat: no deferred, no ear pain, no tinnitis Cardiovascular: orthopnea, shortness of breath, dyspnea on exertion, leg edema, decreased exercise tolerance Respiratory: shortness of breath, dyspnea on exertion, sleep apnea, no cough, no cough with sputum, no wheezing Gastrointestinal: no abdominal pain, no nausea, no vomiting, no diarrhea, no constipation, no melena, no hematochezia Genitourinary Female: no dyspareunia, no pelvic pain, no flank pain Musculoskeletal: no neck stiffness, no neck pain, no shooting arm pain Integumentary: no deferred, no rash, no pruritis Neurological: no head injury, no paralysis, no weakness, no parathesias, no headaches Endocrine: no cold intolerance, no heat intolerance, no polyphagia, no excessive thirst, no polydipsia, no polyuria, no nocturia Hematologic/Lymphatic: no easy bruising, no easy bleeding Allergic/Immunologic: no urticaria, no allergic rhinitis, no wheezing Physical Examination Vital Signs Temp Pulse Resp BP Pulse Ox 98.3 F 93 H 16 167/72 96 10/14/19 10:55 10/14/19 10:55 10/14/19 10:55 10/14/19 10:55 10/14/19 10:55 General appearance: no acute distress, obese HEENT: Positive: PERRL, Jaundice, Normocephaly, Mucus Membranes Moist Neck: Positive: neck supple, trachea midline. Negative: JVD/HJR Cardiac: Positive: Reg Rate and Rhythm, Regular Rate, S1/S2, PMI, Dilated, Laterally Displaced Lungs: Positive: clear to auscultation, No Wheeze, Rales, Rhonchi Neuro: Positive: Grossly Intact, No Lateralizing Findings Abdomen: Positive: Unremarkable Extremities: Present: +2 Edema, Mottled, Black Results 10/14/19 16:02 10/15/19 06:58 Cardiac Enzymes 10/14/19 Range/Units 16:02 AST 14 (5-40) units/L CBC 10/14/19 Range/Units 16:02 WBC 6.8 (4.5-11.0) K/mm3 RBC 5.32 H (3.65-5.03) M/mm3 Hgb 14.4 H (10.1-14.3) gm/dl Hct 42.5 (30.3-42.9) % Plt Count 276 (140-440) K/mm3 Lymph # 1.5 (1.2-5.4) K/mm3 [place] # 0.6 (0.0-0.8) K/mm3 Eos # 0.1 (0.0-0.4) K/mm3 Baso # 0.1 (0.0-0.1) K/mm3 Comprehensive Metabolic Panel 10/14/19 10/15/19 Range/Units 16:02 06:58 Sodium 136 L 138 (137-145) mmol/L Potassium 4.3 3.7 (3.6-5.0) mmol/L Chloride 94.0 L 95.2 L (98-107) mmol/L Carbon Dioxide 27 26 (22-30) mmol/L BUN 11 10 (7-17) mg/dL Creatinine 0.5 L 0.5 L (0.7-1.2) mg/dL Glucose 372 H 310 H (65-100) mg/dL Calcium 9.3 9.0 (8.4-10.2) mg/dL AST 14 (5-40) units/L ALT 11 (7-56) units/L Alkaline Phosphatase 114 (35-129) units/L Total Protein 7.5 (6.3-8.2) g/dL Albumin 3.4 L (3.9-5) g/dL - EKG Interpretation EKG: sinus rhythm EKG interpretations - Telemetry EKG Rhythm: Sinus Bradycardia Assessment and Plan 1. Acute systolic heart failure rule out LV diastolic dysfunction. 2. Essential hypertension 3. Type 2 diabetes mellitus 4. Unspecified asthma 5. Chronic lymphedema 6. Obesity Plan Patient is currently stable with continued diuresis as well as pre-and afterload reduction. Check echocardiogram.
[2019-10-15] MEDS ORDERED: INSULIN NPH/REGULAR 70/30 INJ SUB-Q ONE (10:44)
[2019-10-15] MEDS ORDERED: INSULIN NPH/REGULAR 70/30 INJ SUB-Q SCH (17:00)
[2019-10-15] MEDS: INSULIN NPH/REGULAR 70/30 INJ SUB-Q SCH (18:35)
[2019-10-16] MEDS: guaiFENesin DM 200/20 MG ORAL LIQD 10 ML PO PRN ×4 (00:28→20:59)
[2019-10-16] MEDS: ALBUTEROL 2.5 MG/3 ML NEBU IH PRN ×2 (00:38→22:01)
[2019-10-16] MEDS ORDERED: ALUM-MAG HYDROXIDE-SIMETHICONE 200-200-20MG/5ML ORAL LIQD 30 ML PO ONE (01:00)
[2019-10-16] MEDS: FUROSEMIDE 20 MG/2 ML INJ IV SCH ×2 (05:55→18:36)
[2019-10-16] MEDS: NIFEdipine XL 30 MG TAB PO SCH (05:55)
[2019-10-16] MEDS: INSULIN LISPRO 100 UNIT/ML SUB-Q SCH ×4 (08:00→21:09)
[2019-10-16 08:32] LABS: Chol/HDL Ratio 3.78 %
--- NOTE | 2019-10-16 09:45 | Progress Note ---
Assessment and Plan Acute heart failure with a preserved ejection fraction EF 55-60% by echo this admission Essential hypertension Type 2 diabetes mellitus -uncontrolled Chronic lymphedema Obesity Tobacco abuse Noncompliant with medications and outpatient followup Subjective Date of service: 10/16/19 Interval history: Patient is sitting up at the bedside; wants to go home. She reports her breathing is better. She denies chest pain. Stable sinus rhythm on telemetry. Objective Vital Signs Temp Pulse Pulse Pulse Resp Resp BP 10/16/19 08:09 10/16/19 05:05 93 H 22 148/60 10/16/19 04:00 97 H 10/16/19 00:07 88 20 10/16/19 00:00 22 10/15/19 23:57 98.6 F 10/15/19 23:56 97 H 20 151/68 10/15/19 22:12 90 168/57 10/15/19 22:00 10/15/19 20:39 98.0 F 10/15/19 20:06 96 H 22 161/65 10/15/19 20:00 96 H 10/15/19 19:00 86 10/15/19 17:34 86 10/15/19 17:24 85 157/75 10/15/19 16:55 98.6 F 84 18 154/70 10/15/19 12:25 98.3 F 78 18 150/81 10/15/19 12:00 101 H 10/15/19 11:00 80 Pulse Ox 10/16/19 08:09 93 10/16/19 05:05 95 10/16/19 04:00 10/16/19 00:07 10/16/19 00:00 10/15/19 23:57 10/15/19 23:56 93 10/15/19 22:12 10/15/19 22:00 98 10/15/19 20:39 10/15/19 20:06 93 10/15/19 20:00 10/15/19 19:00 10/15/19 17:34 10/15/19 17:24 96 10/15/19 16:55 98 10/15/19 12:25 99 10/15/19 12:00 10/15/19 11:00 - Physical Examination General: No Apparent Distress HEENT: Positive: PERRL Neck: Positive: trachea midline Cardiac: Positive: Reg Rate and Rhythm Lungs: Positive: Decreased Breath Sounds Neuro: Positive: Grossly Intact Extremities: Present: +2 Edema, Black - Labs and Meds Lipids 10/16/19 Range/Units 07:15 Triglycerides 90 (2-149) mg/dL Cholesterol 189 (50-199) mg/dL HDL Cholesterol 50 (40-59) mg/dL Cholesterol/HDL Ratio 3.78 %
[2019-10-16] MEDS: INSULIN NPH/REGULAR 70/30 INJ SUB-Q SCH ×2 (12:00→18:48)
[2019-10-16] MEDS: LISINOPRIL 5 MG TAB PO SCH ×2 (12:03→21:04)
[2019-10-16] MEDS: METOPROLOL TARTRATE 25 MG TAB PO SCH ×2 (12:04→18:37)
[2019-10-16] MEDS: HEPARIN 5,000 UNIT/1 ML VIAL SUB-Q SCH ×2 (12:06→21:05)
--- NOTE | 2019-10-16 19:10 | Progress Note ---
Assessment and Plan Assessment and plan: 54 YO Female with MO, Obesity Hypoventilation Syndrome, HTN, DM, Lymphedema, Asthma presents to ED for evaluation. Pt states that she has experienced shortness of breath over the past 4 days with worsening symptoms over the past 2 days. Pt acknowledges decreased exercise tolerance, Orthopnea/PND, dypsnea at rest, dypsnea on exertion, leg edema. Noted to be in acute on chronic hypoxic respiratory failure requiring BiPAP Acute diastolic congestive heart failure, managed appropriately. Evaluated by cardiology, medications optimized Symptoms slightly improved, uncontrolled blood sugars secondary to steroid use --Acute on chronic hypoxic respiratory failure secondary to obesity hypoventilation syndrome/MARIA DE JESUS/ acute diastolic dysfunction Continue current management -- Obesity hypoventilation syndrome Current Visit: Yes Status: Acute oxygen, nebs, titrate O2 sats to more than 90% NIPPV as clinically indicated, pulse oximetry Titrate O2 sats to more than 90% Outpatient sleep study to rule out obstructive sleep apnea CPAP BiPAP at night and as needed --Acute diastolic CHF (congestive heart failure) Current Visit: Yes Status: Acute Heart failure medications, input output monitoring, follow echocardiogram Cardiology following, low-sodium diet, fluid restriction, --Type II diabetes mellitus; uncontrolled Current Visit: Yes Status: Acute Accu check, sliding scale coverage , ADA diet Insulin as needed , oral hypoglycemics Add long-acting insulin if needed ,hypoglycemia protocol --HTN (hypertension); moderate control Current Visit: Yes Status: Acute Continue current antihypertensives, PRN medications --Morbid obesity; BMI >50 Dietary modification exercise as tolerated and weight reduction Patient may benefit from evaluation by bariatric team For weight reduction as outpatient when medically stable --DVT prophylaxis Current Visit: Yes Status: Acute SCD to BLE while in bed, prophylactic lovenox. Closely monitor the patient and adjust management as needed Plan of care reviewed with the patient and her nurse Disposition; possible discharge in 1 to 2 days if stable And when cleared by cardiology History Interval history: Patient seen and examined medical records reviewed Morbidly obese female patient is alert awake In mild distress Vital signs reviewed Hospitalist Physical - Constitutional Vitals: Temp Pulse Resp BP Pulse Ox 98.6 F 88 22 148/60 93 10/15/19 23:57 10/16/19 18:37 10/16/19 05:05 10/16/19 05:05 10/16/19 08:09 General appearance: Present: mild distress, well-nourished, obese (Morbidly obese) - EENT Eyes: Present: PERRL, EOM intact - Neck Neck: Present: supple, normal ROM - Respiratory Respiratory effort: normal Respiratory: bilateral: diminished, rhonchi, wheezing, negative: rales - Cardiovascular Rhythm: regular Heart Sounds: Present: S1 & S2 - Extremities Extremities: no ischemia Extremity abnormal: edema - Abdominal General gastrointestinal: soft, non-tender, non-distended, normal bowel sounds - Integumentary Integumentary: Present: clear, warm - Psychiatric Psychiatric: appropriate mood/affect, cooperative - Neurologic Neurologic: CNII-XII intact, moves all extremities Results - Labs CBC & Chem 7: 10/14/19 16:02 10/15/19 06:58 Labs: Laboratory Last Values WBC 6.8 K/mm3 (4.5-11.0) 10/14/19 16:02 RBC 5.32 M/mm3 (3.65-5.03) H 10/14/19 16:02 Hgb 14.4 gm/dl (10.1-14.3) H 10/14/19 16:02 Hct 42.5 % (30.3-42.9) 10/14/19 16:02 MCV 80 fl (79-97) 10/14/19 16:02 MCH 27 pg (28-32) L 10/14/19 16:02 MCHC 34 % (30-34) 10/14/19 16:02 RDW 15.6 % (13.2-15.2) H 10/14/19 16:02 Plt Count 276 K/mm3 (140-440) 10/14/19 16:02 Lymph % (Auto) 21.7 % (13.4-35.0) 10/14/19 16:02 [place] % (Auto) 9.4 % (0.0-7.3) H 10/14/19 16:02 Eos % (Auto) 1.0 % (0.0-4.3) 10/14/19 16:02 Baso % (Auto) 1.0 % (0.0-1.8) 10/14/19 16:02 Lymph # 1.5 K/mm3 (1.2-5.4) 10/14/19 16:02 [place] # 0.6 K/mm3 (0.0-0.8) 10/14/19 16:02 Eos # 0.1 K/mm3 (0.0-0.4) 10/14/19 16:02 Baso # 0.1 K/mm3 (0.0-0.1) 10/14/19 16:02 Seg Neutrophils % 66.9 % (40.0-70.0) 10/14/19 16:02 Seg Neutrophils # 4.5 K/mm3 (1.8-7.7) 10/14/19 16:02 Sodium 138 mmol/L (137-145) 10/15/19 06:58 Potassium 3.7 mmol/L (3.6-5.0) 10/15/19 06:58 Chloride 95.2 mmol/L (98-107) L 10/15/19 06:58 Carbon Dioxide 26 mmol/L (22-30) 10/15/19 06:58 Anion Gap 21 mmol/L 10/15/19 06:58 BUN 10 mg/dL (7-17) 10/15/19 06:58 Creatinine 0.5 mg/dL (0.7-1.2) L 10/15/19 06:58 Estimated GFR > 60 ml/min 10/15/19 06:58 BUN/Creatinine Ratio 20 % 10/15/19 06:58 Glucose 310 mg/dL (65-100) H 10/15/19 06:58 POC Glucose 316 (70-105) H 10/16/19 17:01 Hemoglobin A1c 11.7 % (4-6) H 10/16/19 07:15 Calcium 9.0 mg/dL (8.4-10.2) 10/15/19 06:58 Magnesium 1.70 mg/dL (1.7-2.3) 10/14/19 19:11 Total Bilirubin 0.50 mg/dL (0.1-1.2) 10/14/19 16:02 AST 14 units/L (5-40) 10/14/19 16:02 ALT 11 units/L (7-56) 10/14/19 16:02 Alkaline Phosphatase 114 units/L (35-129) 10/14/19 16:02 Troponin T < 0.010 ng/mL (0.00-0.029) 10/14/19 19:11 NT-Pro-B Natriuret Pep 503.0 pg/mL (0-900) 10/14/19 16:02 Total Protein 7.5 g/dL (6.3-8.2) 10/14/19 16:02 Albumin 3.4 g/dL (3.9-5) L 10/14/19 16:02 Albumin/Globulin Ratio 0.8 % 10/14/19 16:02 Triglycerides 90 mg/dL (2-149) 10/16/19 07:15 Cholesterol 189 mg/dL (50-199) 10/16/19 07:15 LDL Cholesterol Direct 133 mg/dL (50-130) H 10/16/19 07:15 HDL Cholesterol 50 mg/dL (40-59) 10/16/19 07:15 Cholesterol/HDL Ratio 3.78 % 10/16/19 07:15 TSH 2.720 mlU/mL (0.270-4.200) 10/14/19 19:11 Free T4 1.11 ng/dL (0.76-1.46) 10/14/19 19:11 Urine Color Yellow (Yellow) 10/14/19 Unknown Urine Turbidity Slightly-cloudy (Clear) 10/14/19 Unknown Urine pH 5.0 (5.0-7.0) 10/14/19 Unknown Ur Specific [place] 1.029 (1.003-1.030) 10/14/19 Unknown Urine Protein 30 mg/dl mg/dL (Negative) 10/14/19 Unknown Urine Glucose (UA) >=500 mg/dL (Negative) 10/14/19 Unknown Urine Ketones Neg mg/dL (Negative) 10/14/19 Unknown Urine Blood Mod (Negative) 10/14/19 Unknown Urine Nitrite Neg (Negative) 10/14/19 Unknown Urine Bilirubin Neg (Negative) 10/14/19 Unknown Urine Urobilinogen < 2.0 mg/dL (<2.0) 10/14/19 Unknown Ur Leukocyte Esterase Neg (Negative) 10/14/19 Unknown Urine WBC (Auto) 1.0 /HPF (0.0-6.0) 10/14/19 Unknown Urine RBC (Auto) 3.0 /HPF (0.0-6.0) 10/14/19 Unknown U Epithel Cells (Auto) 7.0 /HPF (0-13.0) 10/14/19 Unknown Urine Bacteria (Auto) 1+ /HPF (Negative) 10/14/19 Unknown Urine Mucus Few /HPF 10/14/19 Unknown Active Medications - Current Medications Current Medications: Generic Name Dose Route Start Last Admin Trade Name Freq PRN Reason Stop Dose Admin Acetaminophen 650 mg 10/14/19 18:58 10/14/19 22:32 Tylenol PO 650 mg Q4H PRN Administration Pain MILD(1-3)/Fever >100.5/HORN Albuterol 2.5 mg 10/14/19 22:00 10/16/19 00:38 Proventil IH 2.5 mg Q4HRT PRN Administration Shortness Of Breath Furosemide 20 mg 10/15/19 06:00 10/16/19 18:36 Lasix IV 20 mg 0600,1800 ARIANA Administration Guaifenesin 10 ml 10/16/19 00:03 10/16/19 12:04 Guaifenesin Dm Syrup PO 10 ml Q6H PRN Administration Cough Heparin Sodium (Porcine) 5,000 unit 10/14/19 22:00 10/16/19 12:06 Heparin SUB-Q 5,000 unit Q12HR ARIANA Administration Insulin Human Isoph/Insulin Regular 15 unit 10/15/19 17:00 10/16/19 12:00 Humulin 70/30 SUB-Q 15 unit BIDDIAB ARIANA Administration Insulin Human Lispro 0 unit 10/14/19 23:15 10/16/19 18:36 Humalog SUB-Q 6 unit ACHS ARIANA Administration Protocol Lisinopril 5 mg 10/14/19 22:00 10/16/19 12:03 Zestril PO 5 mg BID ARIANA Administration Metoprolol Tartrate 12.5 mg 10/14/19 22:00 10/16/19 18:37 Metoprolol PO 12.5 mg BID@0800,1700 ARIANA Administration Nifedipine 30 mg 10/15/19 06:00 10/16/19 05:55 Procardia Xl PO 30 mg QDAY@0600 ARIANA Administration Ondansetron HCl 4 mg 10/14/19 18:58 Zofran IV Q8H PRN Nausea And Vomiting Sodium Chloride 10 ml 10/14/19 22:00 10/16/19 12:06 Sodium Chloride Flush Syringe 10 Ml IV 10 ml BID ARIANA Administration Sodium Chloride 10 ml 10/14/19 18:58 10/16/19 05:55 Sodium Chloride Flush Syringe 10 Ml IV 10 ml PRN PRN Administration LINE FLUSH
[2019-10-17] MEDS: guaiFENesin DM 200/20 MG ORAL LIQD 10 ML PO PRN ×2 (06:05→22:32)
[2019-10-17] MEDS: NIFEdipine XL 30 MG TAB PO SCH (06:06)
[2019-10-17] MEDS ORDERED: REGADENOSON 0.4 MG/5 ML INJ IV ONE (07:32)
[2019-10-17] MEDS: INSULIN NPH/REGULAR 70/30 INJ SUB-Q SCH ×4 (08:41→18:28)
[2019-10-17] MEDS: METOPROLOL TARTRATE 25 MG TAB PO SCH ×3 (08:41→18:17)
[2019-10-17] MEDS: FUROSEMIDE 20 MG/2 ML INJ IV SCH ×2 (08:41→18:16)
[2019-10-17] MEDS: INSULIN LISPRO 100 UNIT/ML SUB-Q SCH ×4 (08:41→22:34)
[2019-10-17] MEDS: ALBUTEROL 2.5 MG/3 ML NEBU IH PRN ×3 (09:26→20:00)
[2019-10-17] MEDS: LISINOPRIL 5 MG TAB PO SCH ×2 (10:14→22:36)
[2019-10-17] MEDS: HEPARIN 5,000 UNIT/1 ML VIAL SUB-Q SCH ×2 (10:20→22:35)
--- NOTE | 2019-10-17 13:53 | Progress Note ---
Assessment and Plan Acute heart failure with a preserved ejection fraction EF 55-60% by echo this admission Essential hypertension Type 2 diabetes mellitus Chronic lymphedema Obesity Tobacco abuse Noncompliant with medications and outpatient followup Recommendations: Pulmonary consultation for management of shortness of breath with active wheezing. We will plan for a dobutamine stress test tomorrow. Subjective Date of service: 10/17/19 Interval history: Stress test postponed due to shortness of breath and active wheezing. NSVT seen on telemetry overnight. Patient remained asymptomatic. Objective Vital Signs Temp Pulse Pulse Pulse Resp Resp BP 10/17/19 10:00 86 10/17/19 09:29 10/17/19 09:27 89 20 10/17/19 04:00 91 H 10/17/19 03:02 98.2 F 91 H 18 10/17/19 00:00 85 16 10/16/19 22:34 99.1 F 81 18 144/66 10/16/19 22:00 88 20 10/16/19 21:04 84 146/69 10/16/19 20:00 81 10/16/19 19:33 99.5 F 77 18 146/69 10/16/19 18:37 88 10/16/19 16:50 98.0 F 90 18 168/74 BP Pulse Ox 10/17/19 10:00 10/17/19 09:29 96 10/17/19 09:27 10/17/19 04:00 10/17/19 03:02 156/67 94 10/17/19 00:00 10/16/19 22:34 92 10/16/19 22:00 92 10/16/19 21:04 10/16/19 20:00 10/16/19 19:33 94 10/16/19 18:37 10/16/19 16:50 97 - Physical Examination General: No Apparent Distress HEENT: Positive: PERRL Neck: Positive: trachea midline Cardiac: Positive: Reg Rate and Rhythm Lungs: Positive: Decreased Breath Sounds Neuro: Positive: Grossly Intact Extremities: Present: +2 Edema, Black
--- NOTE | 2019-10-17 17:34 | Progress Note ---
Assessment and Plan Assessment and plan: Patient is a 54 yo woman with a history of MO, Obesity Hypoventilation Syndrome, HTN, DM, Lymphedema, Asthma presents to ED for evaluation. Pt states that she has experienced shortness of breath over the past 4 days with worsening symptoms over the past 2 days. Pt acknowledges decreased exercise tolerance, Orthopnea/PND, dypsnea at rest, dypsnea on exertion, leg edema. Noted to be in acute on chronic hypoxic respiratory failure requiring BiPAP, now weaned off. Acute diastolic congestive heart failure, managed appropriately. Evaluated by cardiology, medications optimized, stress test ordered for 10/17/19 but unable to complete due to bronchospasm. Cardiology has requested Pulm consultation and change the stress test medication. Uncontrolled blood sugars secondary to steroid use, increased Insulin. --Acute on chronic hypoxic respiratory failure secondary to obesity hypoventilation syndrome/MARIA DE JESUS/ acute diastolic dysfunction Continue current management --Acute Asthma exacerabation start IV steroids consult Pulmonology -- Obesity hypoventilation syndrome Current Visit: Yes Status: Acute oxygen, nebs, titrate O2 sats to more than 90% NIPPV as clinically indicated, pulse oximetry Titrate O2 sats to more than 90% Outpatient sleep study to rule out obstructive sleep apnea CPAP BiPAP at night and as needed --Acute diastolic CHF (congestive heart failure) Current Visit: Yes Status: Acute Heart failure medications, input output monitoring, follow echocardiogram Cardiology following, low-sodium diet, fluid restriction, --Type II diabetes mellitus; uncontrolled Current Visit: Yes Status: Acute Accu check, sliding scale coverage , ADA diet Insulin as needed , oral hypoglycemics Add long-acting insulin if needed ,hypoglycemia protocol --HTN (hypertension); moderate control Current Visit: Yes Status: Acute Continue current antihypertensives, PRN medications --Morbid obesity; BMI >50 Dietary modification exercise as tolerated and weight reduction Patient may benefit from evaluation by bariatric team For weight reduction as outpatient when medically stable --DVT prophylaxis Current Visit: Yes Status: Acute SCD to BLE while in bed, prophylactic lovenox. Closely monitor the patient and adjust management as needed Plan of care reviewed with the patient and her nurse Disposition; possible discharge in 1 to 2 days if stable And when cleared by cardiology NEW ISSUES: 26 beat run of NSVT on Wednesday night, acute bronchospasm, started IV steroid, unable to do stress test today. History Interval history: Patient was seen and examined. Follow-up on current diagnosis of respiratory failure. No overnight events reported to me. Patient denies any chest pain, shortness breath, nausea/vomiting or severe headaches. Imaging, nursing note, chart, labs and old chart reviewed. Discussed with patient. Hospitalist Physical - Physical exam Narrative exam: Gen: WDWN, NAD, Awake, Alert, Orientated HEENT: NCAT, EOMI, PERRL, OP Clear Neck: supple, no adenopathy, no thyromegaly, no JVD CVS/Heart: RRR, normal S1S2, pulses present bilaterally Chest/Lungs:DIMINISHED BS BILATERAL WITH WHEEZING, Symmetrical chest expansion, good air entry bilaterally GI/Abdomen: soft, NTND, good bowel sounds, no guarding or rebound /Bladder: no suprapubic tenderness, no CVA or paraspinal tenderness Extermity/Skin: no c/c/e, no obvious rash MSK: FROM x 4 Neuro: CN 2-12 grossly intact, no new focal deficits Psych: calm - Constitutional Vitals: Temp Pulse Resp BP Pulse Ox 98.2 F 89 20 156/67 96 10/17/19 03:02 10/17/19 17:30 10/17/19 17:30 10/17/19 03:02 10/17/19 09:29 General appearance: Present: obese (Morbidly obese). Absent: mild distress, well-nourished Results - Labs CBC & Chem 7: 10/14/19 16:02 10/15/19 06:58 Labs: Laboratory Last Values WBC 6.8 K/mm3 (4.5-11.0) 10/14/19 16:02 RBC 5.32 M/mm3 (3.65-5.03) H 10/14/19 16:02 Hgb 14.4 gm/dl (10.1-14.3) H 10/14/19 16:02 Hct 42.5 % (30.3-42.9) 10/14/19 16:02 MCV 80 fl (79-97) 10/14/19 16:02 MCH 27 pg (28-32) L 10/14/19 16:02 MCHC 34 % (30-34) 10/14/19 16:02 RDW 15.6 % (13.2-15.2) H 10/14/19 16:02 Plt Count 276 K/mm3 (140-440) 10/14/19 16:02 Lymph % (Auto) 21.7 % (13.4-35.0) 10/14/19 16:02 [place] % (Auto) 9.4 % (0.0-7.3) H 10/14/19 16:02 Eos % (Auto) 1.0 % (0.0-4.3) 10/14/19 16:02 Baso % (Auto) 1.0 % (0.0-1.8) 10/14/19 16:02 Lymph # 1.5 K/mm3 (1.2-5.4) 10/14/19 16:02 [place] # 0.6 K/mm3 (0.0-0.8) 10/14/19 16:02 Eos # 0.1 K/mm3 (0.0-0.4) 10/14/19 16:02 Baso # 0.1 K/mm3 (0.0-0.1) 10/14/19 16:02 Seg Neutrophils % 66.9 % (40.0-70.0) 10/14/19 16:02 Seg Neutrophils # 4.5 K/mm3 (1.8-7.7) 10/14/19 16:02 Sodium 138 mmol/L (137-145) 10/15/19 06:58 Potassium 3.7 mmol/L (3.6-5.0) 10/15/19 06:58 Chloride 95.2 mmol/L (98-107) L 10/15/19 06:58 Carbon Dioxide 26 mmol/L (22-30) 10/15/19 06:58 Anion Gap 21 mmol/L 10/15/19 06:58 BUN 10 mg/dL (7-17) 10/15/19 06:58 Creatinine 0.5 mg/dL (0.7-1.2) L 10/15/19 06:58 Estimated GFR > 60 ml/min 10/15/19 06:58 BUN/Creatinine Ratio 20 % 10/15/19 06:58 Glucose 310 mg/dL (65-100) H 10/15/19 06:58 POC Glucose 331 (70-105) H 10/17/19 12:49 Hemoglobin A1c 11.7 % (4-6) H 10/16/19 07:15 Calcium 9.0 mg/dL (8.4-10.2) 10/15/19 06:58 Magnesium 1.70 mg/dL (1.7-2.3) 10/14/19 19:11 Total Bilirubin 0.50 mg/dL (0.1-1.2) 10/14/19 16:02 AST 14 units/L (5-40) 10/14/19 16:02 ALT 11 units/L (7-56) 10/14/19 16:02 Alkaline Phosphatase 114 units/L (35-129) 10/14/19 16:02 Troponin T < 0.010 ng/mL (0.00-0.029) 10/14/19 19:11 NT-Pro-B Natriuret Pep 503.0 pg/mL (0-900) 10/14/19 16:02 Total Protein 7.5 g/dL (6.3-8.2) 10/14/19 16:02 Albumin 3.4 g/dL (3.9-5) L 10/14/19 16:02 Albumin/Globulin Ratio 0.8 % 10/14/19 16:02 Triglycerides 90 mg/dL (2-149) 10/16/19 07:15 Cholesterol 189 mg/dL (50-199) 10/16/19 07:15 LDL Cholesterol Direct 133 mg/dL (50-130) H 10/16/19 07:15 HDL Cholesterol 50 mg/dL (40-59) 10/16/19 07:15 Cholesterol/HDL Ratio 3.78 % 10/16/19 07:15 TSH 2.720 mlU/mL (0.270-4.200) 10/14/19 19:11 Free T4 1.11 ng/dL (0.76-1.46) 10/14/19 19:11 Urine Color Yellow (Yellow) 10/14/19 Unknown Urine Turbidity Slightly-cloudy (Clear) 10/14/19 Unknown Urine pH 5.0 (5.0-7.0) 10/14/19 Unknown Ur Specific [place] 1.029 (1.003-1.030) 10/14/19 Unknown Urine Protein 30 mg/dl mg/dL (Negative) 10/14/19 Unknown Urine Glucose (UA) >=500 mg/dL (Negative) 10/14/19 Unknown Urine Ketones Neg mg/dL (Negative) 10/14/19 Unknown Urine Blood Mod (Negative) 10/14/19 Unknown Urine Nitrite Neg (Negative) 10/14/19 Unknown Urine Bilirubin Neg (Negative) 10/14/19 Unknown Urine Urobilinogen < 2.0 mg/dL (<2.0) 10/14/19 Unknown Ur Leukocyte Esterase Neg (Negative) 10/14/19 Unknown Urine WBC (Auto) 1.0 /HPF (0.0-6.0) 10/14/19 Unknown Urine RBC (Auto) 3.0 /HPF (0.0-6.0) 10/14/19 Unknown U Epithel Cells (Auto) 7.0 /HPF (0-13.0) 10/14/19 Unknown Urine Bacteria (Auto) 1+ /HPF (Negative) 10/14/19 Unknown Urine Mucus Few /HPF 10/14/19 Unknown Active Medications - Current Medications Current Medications: Generic Name Dose Route Start Last Admin Trade Name Freq PRN Reason Stop Dose Admin Acetaminophen 650 mg 10/14/19 18:58 10/14/19 22:32 Tylenol PO 650 mg Q4H PRN Administration Pain MILD(1-3)/Fever >100.5/HORN Albuterol 2.5 mg 10/14/19 22:00 10/17/19 09:26 Proventil IH 2.5 mg Q4HRT PRN Administration Shortness Of Breath Furosemide 20 mg 10/15/19 06:00 10/17/19 08:41 Lasix IV Not Given 0600,1800 ARIANA Guaifenesin 10 ml 10/16/19 00:03 10/17/19 06:05 Guaifenesin Dm Syrup PO 10 ml Q6H PRN Administration Cough Heparin Sodium (Porcine) 5,000 unit 10/14/19 22:00 10/17/19 10:20 Heparin SUB-Q 5,000 unit Q12HR ARIANA Administration Insulin Human Isoph/Insulin Regular 15 unit 10/15/19 17:00 10/17/19 10:19 Humulin 70/30 SUB-Q 15 unit BIDDIAB ARIANA Administration Insulin Human Lispro 0 unit 10/14/19 23:15 10/17/19 15:59 Humalog SUB-Q Not Given ACHS [facility] Protocol Lisinopril 5 mg 10/14/19 22:00 10/17/19 10:14 Zestril PO 5 mg BID ARIANA Administration Metoprolol Tartrate 12.5 mg 10/14/19 22:00 10/17/19 10:13 Metoprolol PO 12.5 mg BID@0800,1700 ARIANA Administration Nifedipine 30 mg 10/15/19 06:00 10/17/19 06:06 Procardia Xl PO 30 mg QDAY@0600 ARIANA Administration Ondansetron HCl 4 mg 10/14/19 18:58 Zofran IV Q8H PRN Nausea And Vomiting Sodium Chloride 10 ml 10/14/19 22:00 10/17/19 10:14 Sodium Chloride Flush Syringe 10 Ml IV 10 ml BID ARIANA Administration Sodium Chloride 10 ml 10/14/19 18:58 10/16/19 05:55 Sodium Chloride Flush Syringe 10 Ml IV 10 ml PRN PRN Administration LINE FLUSH
[2019-10-17] MEDS: methylPREDNISolone Sod Succinate 125 MG/2 ML INJ IV SCH ×2 (18:16→22:32)
[2019-10-18] MEDS: ALBUTEROL 2.5 MG/3 ML NEBU IH PRN ×2 (01:38→21:37)
[2019-10-18 05:51] LABS: Hemoglobin 14.2 gm/dl (10.1-14.3); Mean Corpuscular HGB Conc 34 % (30-34); Mean Corpuscular Volume 80 fl (79-97); Platelet Count 271 K/mm3 (140-440); Red Blood Count 5.24 M/mm3 (3.65-5.03); Red Cell Distribution Width 15.4 % (13.2-15.2)
[2019-10-18 06:20] LABS: BUN/Creatinine Ratio 32; Blood Urea Nitrogen 16 mg/dL (7-17); Calcium 9.5 mg/dL (8.4-10.2); Hemolysis Index 6
[2019-10-18] MEDS: methylPREDNISolone Sod Succinate 125 MG/2 ML INJ IV SCH ×2 (06:55→14:03)
[2019-10-18] MEDS: FUROSEMIDE 20 MG/2 ML INJ IV SCH ×2 (06:55→18:06)
[2019-10-18] MEDS: NIFEdipine XL 30 MG TAB PO SCH (06:55)
[2019-10-18] MEDS ORDERED: REGADENOSON 0.4 MG/5 ML INJ IV ONE (07:34)
[2019-10-18] MEDS: INSULIN LISPRO 100 UNIT/ML SUB-Q SCH ×4 (08:00→22:12)
[2019-10-18] MEDS ORDERED: DOBUTamine 100 MG in DEXTROSE 5% IN WATER 92 ML IV ONE (09:30)
--- NOTE | 2019-10-18 10:11 | Progress Note ---
Assessment and Plan Acute heart failure with a preserved ejection fraction EF 55-60% by echo this admission Essential hypertension Type 2 diabetes mellitus Chronic lymphedema Obesity Tobacco abuse Noncompliant with medications and outpatient followup Recommendations: Pulmonary consultation for management of shortness of breath with active wheezing. We will plan for a dobutamine stress test today Subjective Date of service: 10/18/19 Interval history: No acute events. resting comfortably. No chest pain or SOB. Objective Vital Signs Temp Pulse Pulse Pulse Resp Resp BP 10/18/19 03:38 98.5 F 107 H 20 149/77 10/18/19 01:00 98 H 18 10/18/19 00:46 99 H 144/69 10/17/19 23:33 99.0 F 100 H 20 203/97 10/17/19 22:36 98 H 154/71 10/17/19 22:00 100 H 90 20 10/17/19 20:06 10/17/19 20:02 85 18 10/17/19 19:54 98.3 F 84 18 186/83 10/17/19 17:30 89 20 Pulse Ox 10/18/19 03:38 97 10/18/19 01:00 10/18/19 00:46 10/17/19 23:33 91 10/17/19 22:36 10/17/19 22:00 97 10/17/19 20:06 97 10/17/19 20:02 10/17/19 19:54 92 10/17/19 17:30 - Physical Examination General: No Apparent Distress HEENT: Positive: PERRL Neck: Positive: trachea midline Neuro: Positive: Grossly Intact Abdomen: Positive: Unremarkable Extremities: Present: +2 Edema, Black - Labs and Meds CBC 10/18/19 Range/Units 04:58 WBC 7.5 (4.5-11.0) K/mm3 RBC 5.24 H (3.65-5.03) M/mm3 Hgb 14.2 (10.1-14.3) gm/dl Hct 42.0 (30.3-42.9) % Plt Count 271 (140-440) K/mm3 Comprehensive Metabolic Panel 10/18/19 Range/Units 04:58 Sodium 139 (137-145) mmol/L Potassium 4.0 (3.6-5.0) mmol/L Chloride 91.3 L (98-107) mmol/L Carbon Dioxide 30 (22-30) mmol/L BUN 16 (7-17) mg/dL Creatinine 0.5 L (0.7-1.2) mg/dL Glucose 373 H (65-100) mg/dL Calcium 9.5 (8.4-10.2) mg/dL
[2019-10-18] MEDS: METOPROLOL TARTRATE 25 MG TAB PO SCH ×2 (11:20→16:48)
[2019-10-18] MEDS: INSULIN NPH/REGULAR 70/30 INJ SUB-Q SCH ×2 (11:20→16:47)
[2019-10-18] MEDS: LISINOPRIL 5 MG TAB PO SCH ×2 (11:21→21:24)
[2019-10-18] MEDS: HEPARIN 5,000 UNIT/1 ML VIAL SUB-Q SCH ×2 (11:21→21:24)
--- NOTE | 2019-10-18 13:59 | Consultation ---
History of Present Illness Consult date: 10/18/19 Requesting physician: MADDI BYRD Reason for consult: asthma, COPD History of present illness: 54 y/o, obese female, last seen by anyone in our group several years go in the hospital admitted with COPD vs asthma exacerbation. Patient never followed up with us in the office. Her breathing has been managed by a PCP in [place] whose name she cannot remember. Patient states that she ran out of her medication (inhalers) which is what preceded this exacerbation. The patient also cannot tell me the names of her medications. She has been started on IV steroids and scheduled nebs. Per patient feels better. Past History Past Medical History: anemia, diabetes, GERD, heart failure, hypertension, hyperlipidemia Past Surgical History: No surgical history, Other (reviewed) Social history: single Family history: diabetes, hypertension Medications and Allergies Allergies Allergy/AdvReac Type Severity Reaction Status Date / Time No Known Allergies Allergy Verified 12/02/16 17:08 Home Medications Medication Instructions Recorded Confirmed Last Taken Type Insulin NPH/Regular [NovoLIN 70/30] 7 unit SUB-Q BIDDIAB 05/13/15 10/15/19 05/12/15 History 14 units Ibuprofen [Motrin 600 MG tab] 600 mg PO Q8H PRN #60 tablet 12/02/16 10/15/19 Unknown Rx Active Meds: Active Medications Acetaminophen (Tylenol) 650 mg PO Q4H PRN PRN Reason: Pain MILD(1-3)/Fever >100.5/HORN Last Admin: 10/14/19 22:32 Dose: 650 mg Documented by: Albuterol (Proventil) 2.5 mg IH Q4HRT PRN PRN Reason: Shortness Of Breath Last Admin: 10/18/19 01:38 Dose: 2.5 mg Documented by: Furosemide (Lasix) 20 mg IV 0600,1800 [facility] Last Admin: 10/18/19 06:55 Dose: 20 mg Documented by: Guaifenesin (Guaifenesin Dm Syrup) 10 ml PO Q6H PRN PRN Reason: Cough Last Admin: 10/17/19 22:32 Dose: 10 ml Documented by: Heparin Sodium (Porcine) (Heparin) 5,000 unit SUB-Q Q12HR [facility] Last Admin: 10/18/19 11:21 Dose: 5,000 unit Documented by: Insulin Human Isoph/Insulin Regular (Humulin 70/30) 20 unit SUB-Q BIDDIAB [facility] Last Admin: 10/18/19 11:20 Dose: 20 unit Documented by: Insulin Human Lispro (Humalog) 0 unit SUB-Q ACHS [facility]; Protocol Last Admin: 10/18/19 11:22 Dose: 8 unit Documented by: Lisinopril (Zestril) 5 mg PO BID [facility] Last Admin: 10/18/19 11:21 Dose: 5 mg Documented by: Methylprednisolone Sodium Succinate (Solu-Medrol) 125 mg IV Q8HR [facility] Last Admin: 10/18/19 06:55 Dose: 125 mg Documented by: Metoprolol Tartrate (Metoprolol) 12.5 mg PO BID@0800,1700 [facility] Last Admin: 10/18/19 11:20 Dose: 12.5 mg Documented by: Nifedipine (Procardia Xl) 30 mg PO QDAY@0600 [facility] Last Admin: 10/18/19 06:55 Dose: 30 mg Documented by: Ondansetron HCl (Zofran) 4 mg IV Q8H PRN PRN Reason: Nausea And Vomiting Sodium Chloride (Sodium Chloride Flush Syringe 10 Ml) 10 ml IV BID [facility] Last Admin: 10/18/19 11:21 Dose: 10 ml Documented by: Sodium Chloride (Sodium Chloride Flush Syringe 10 Ml) 10 ml IV PRN PRN PRN Reason: LINE FLUSH Last Admin: 10/16/19 05:55 Dose: 10 ml Documented by: Physical Examination Vital signs: Vital Signs Temp Pulse Resp BP Pulse Ox 98.3 F 93 H 16 167/72 96 10/14/19 10:55 10/14/19 10:55 10/14/19 10:55 10/14/19 10:55 10/14/19 10:55 Results - Laboratory Findings CBC and BMP: 10/18/19 04:58 10/19/19 05:36 Abnormal lab findings: Abnormal Labs 10/14/19 10/14/19 10/14/19 10:54 16:02 16:02 RBC 5.32 H Hgb 14.4 H MCH 27 L RDW 15.6 H [place] % (Auto) 9.4 H Sodium 136 L Chloride 94.0 L Creatinine 0.5 L Glucose 372 H POC Glucose 280 H Hemoglobin A1c Albumin 3.4 L LDL Cholesterol Direct 10/14/19 10/15/19 10/15/19 21:55 06:58 07:41 RBC Hgb MCH RDW [place] % (Auto) Sodium Chloride 95.2 L Creatinine 0.5 L Glucose 310 H POC Glucose 386 H 314 H Hemoglobin A1c Albumin LDL Cholesterol Direct 10/15/19 10/15/19 10/15/19 12:42 15:36 22:07 RBC Hgb MCH RDW [place] % (Auto) Sodium Chloride Creatinine Glucose POC Glucose 291 H 373 H 222 H Hemoglobin A1c Albumin LDL Cholesterol Direct 10/16/19 10/16/19 10/16/19 07:15 07:15 07:55 RBC Hgb MCH RDW [place] % (Auto) Sodium Chloride Creatinine Glucose POC Glucose 260 H Hemoglobin A1c 11.7 H Albumin LDL Cholesterol Direct 133 H 10/16/19 10/16/19 10/16/19 12:11 17:01 21:12 RBC Hgb MCH RDW [place] % (Auto) Sodium Chloride Creatinine Glucose POC Glucose 284 H 316 H 175 H Hemoglobin A1c Albumin LDL Cholesterol Direct 10/17/19 10/17/19 10/17/19 08:20 12:49 17:59 RBC Hgb MCH RDW [place] % (Auto) Sodium Chloride Creatinine Glucose POC Glucose 227 H 331 H 292 H Hemoglobin A1c Albumin LDL Cholesterol Direct 10/17/19 10/18/19 10/18/19 21:00 04:58 04:58 RBC 5.24 H Hgb MCH 27 L RDW 15.4 H [place] % (Auto) Sodium Chloride 91.3 L Creatinine 0.5 L Glucose 373 H POC Glucose 316 H Hemoglobin A1c Albumin LDL Cholesterol Direct 10/18/19 11:28 RBC Hgb MCH RDW [place] % (Auto) Sodium Chloride Creatinine Glucose POC Glucose 315 H Hemoglobin A1c Albumin LDL Cholesterol Direct Assessment and Plan 54 y/o obese female with acute respiratory failure, and asthma vs COPD exacerba tion. 1. Would drop steroids down to 60mg of PRednisone daily 2. Patient will need walk test prior to discharge 3. Will need CM consult to help with medications as patient has no funding 4. Will continue to follow
[2019-10-18] MEDS: guaiFENesin DM 200/20 MG ORAL LIQD 10 ML PO PRN ×2 (16:47→21:24)
--- NOTE | 2019-10-18 17:58 | Progress Note ---
Assessment and Plan Assessment and plan: Patient is a 54 yo woman with a history of MO, Obesity Hypoventilation Syndrome, HTN, DM, Lymphedema, Asthma presents to ED for evaluation. Pt states that she has experienced shortness of breath over the past 4 days with worsening symptoms over the past 2 days. Pt acknowledges decreased exercise tolerance, Orthopnea/PND, dypsnea at rest, dypsnea on exertion, leg edema. Noted to be in acute on chronic hypoxic respiratory failure requiring BiPAP, now weaned off. Acute diastolic congestive heart failure, managed appropriately. Evaluated by cardiology, medications optimized, stress test ordered for 10/17/19 but unable to complete due to bronchospasm. Cardiology has requested Pulm consultation and change the stress test medication. Uncontrolled blood sugars secondary to steroid use, increased Insulin. Wednesday night, patient had 26 beat run of NSVT and acute bronchospasm unable to do stress test on Wednesday, started IV steroid, which helped, dobutamine stess test is abnormal on Wednesday and C planned for per Cardiology --Acute hypoxic respiratory failure secondary to obesity hypoventilation syndrome/MARIA DE JESUS/acute diastolic dysfunction Continue current management trying to wean off o2, she dropped to 88% at rest --Acute Asthma exacerbation start IV steroids consult Pulmonology -- Obesity hypoventilation syndrome Current Visit: Yes Status: Acute oxygen, nebs, titrate O2 sats to more than 90% NIPPV as clinically indicated, pulse oximetry Titrate O2 sats to more than 90% Outpatient sleep study to rule out obstructive sleep apnea CPAP BiPAP at night and as needed --Acute diastolic CHF (congestive heart failure) Current Visit: Yes Status: Acute Heart failure medications, input output monitoring, follow echocardiogram Cardiology following, low-sodium diet, fluid restriction, --Type II diabetes mellitus; uncontrolled Current Visit: Yes Status: Acute Accu check, sliding scale coverage , ADA diet Insulin as needed , oral hypoglycemics Add long-acting insulin if needed ,hypoglycemia protocol --HTN (hypertension); moderate control Current Visit: Yes Status: Acute Continue current antihypertensives, PRN medications --Morbid obesity; BMI >50 Dietary modification exercise as tolerated and weight reduction Patient may benefit from evaluation by bariatric team For weight reduction as outpatient when medically stable --DVT prophylaxis Current Visit: Yes Status: Acute SCD to BLE while in bed, prophylactic lovenox. Closely monitor the patient and adjust management as needed Plan of care reviewed with the patient and her nurse Disposition; continue inpatient care History Interval history: Patient was seen and examined. Follow-up on current diagnosis of respiratory failure. No overnight events reported to me. Patient denies any chest pain, shortness breath, nausea/vomiting or severe headaches. Imaging, nursing note, chart, labs and old chart reviewed. Discussed with patient. Hospitalist Physical - Physical exam Narrative exam: Gen: WDWN, NAD, Awake, Alert, Orientated HEENT: NCAT, EOMI, PERRL, OP Clear Neck: supple, no adenopathy, no thyromegaly, no JVD CVS/Heart: RRR, normal S1S2, pulses present bilaterally Chest/Lungs:DIMINISHED BS BILATERAL WITH WHEEZING, Symmetrical chest expansion, good air entry bilaterally GI/Abdomen: soft, NTND, good bowel sounds, no guarding or rebound /Bladder: no suprapubic tenderness, no CVA or paraspinal tenderness Extermity/Skin: no c/c/e, no obvious rash MSK: FROM x 4 Neuro: CN 2-12 grossly intact, no new focal deficits Psych: calm - Constitutional Vitals: Temp Pulse Resp BP Pulse Ox 99.0 F 97 H 20 180/84 94 10/18/19 16:51 10/18/19 16:51 10/18/19 16:51 10/18/19 16:51 10/18/19 16:51 General appearance: Present: obese (Morbidly obese). Absent: mild distress, well-nourished Results - Labs CBC & Chem 7: 10/18/19 04:58 10/18/19 04:58 Labs: Laboratory Last Values WBC 7.5 K/mm3 (4.5-11.0) 10/18/19 04:58 RBC 5.24 M/mm3 (3.65-5.03) H 10/18/19 04:58 Hgb 14.2 gm/dl (10.1-14.3) 10/18/19 04:58 Hct 42.0 % (30.3-42.9) 10/18/19 04:58 MCV 80 fl (79-97) 10/18/19 04:58 MCH 27 pg (28-32) L 10/18/19 04:58 MCHC 34 % (30-34) 10/18/19 04:58 RDW 15.4 % (13.2-15.2) H 10/18/19 04:58 Plt Count 271 K/mm3 (140-440) 10/18/19 04:58 Lymph % (Auto) 21.7 % (13.4-35.0) 10/14/19 16:02 [place] % (Auto) 9.4 % (0.0-7.3) H 10/14/19 16:02 Eos % (Auto) 1.0 % (0.0-4.3) 10/14/19 16:02 Baso % (Auto) 1.0 % (0.0-1.8) 10/14/19 16:02 Lymph # 1.5 K/mm3 (1.2-5.4) 10/14/19 16:02 [place] # 0.6 K/mm3 (0.0-0.8) 10/14/19 16:02 Eos # 0.1 K/mm3 (0.0-0.4) 10/14/19 16:02 Baso # 0.1 K/mm3 (0.0-0.1) 10/14/19 16:02 Seg Neutrophils % 66.9 % (40.0-70.0) 10/14/19 16:02 Seg Neutrophils # 4.5 K/mm3 (1.8-7.7) 10/14/19 16:02 Sodium 139 mmol/L (137-145) 10/18/19 04:58 Potassium 4.0 mmol/L (3.6-5.0) 10/18/19 04:58 Chloride 91.3 mmol/L (98-107) L 10/18/19 04:58 Carbon Dioxide 30 mmol/L (22-30) 10/18/19 04:58 Anion Gap 22 mmol/L 10/18/19 04:58 BUN 16 mg/dL (7-17) 10/18/19 04:58 Creatinine 0.5 mg/dL (0.7-1.2) L 10/18/19 04:58 Estimated GFR > 60 ml/min 10/18/19 04:58 BUN/Creatinine Ratio 32 % 10/18/19 04:58 Glucose 373 mg/dL (65-100) H 10/18/19 04:58 POC Glucose 383 (70-105) H 10/18/19 16:59 Hemoglobin A1c 11.7 % (4-6) H 10/16/19 07:15 Calcium 9.5 mg/dL (8.4-10.2) 10/18/19 04:58 Magnesium 1.70 mg/dL (1.7-2.3) 10/14/19 19:11 Total Bilirubin 0.50 mg/dL (0.1-1.2) 10/14/19 16:02 AST 14 units/L (5-40) 10/14/19 16:02 ALT 11 units/L (7-56) 10/14/19 16:02 Alkaline Phosphatase 114 units/L (35-129) 10/14/19 16:02 Troponin T < 0.010 ng/mL (0.00-0.029) 10/14/19 19:11 NT-Pro-B Natriuret Pep 503.0 pg/mL (0-900) 10/14/19 16:02 Total Protein 7.5 g/dL (6.3-8.2) 10/14/19 16:02 Albumin 3.4 g/dL (3.9-5) L 10/14/19 16:02 Albumin/Globulin Ratio 0.8 % 10/14/19 16:02 Triglycerides 90 mg/dL (2-149) 10/16/19 07:15 Cholesterol 189 mg/dL (50-199) 10/16/19 07:15 LDL Cholesterol Direct 133 mg/dL (50-130) H 10/16/19 07:15 HDL Cholesterol 50 mg/dL (40-59) 10/16/19 07:15 Cholesterol/HDL Ratio 3.78 % 10/16/19 07:15 TSH 2.720 mlU/mL (0.270-4.200) 10/14/19 19:11 Free T4 1.11 ng/dL (0.76-1.46) 10/14/19 19:11 Urine Color Yellow (Yellow) 10/14/19 Unknown Urine Turbidity Slightly-cloudy (Clear) 10/14/19 Unknown Urine pH 5.0 (5.0-7.0) 10/14/19 Unknown Ur Specific [place] 1.029 (1.003-1.030) 10/14/19 Unknown Urine Protein 30 mg/dl mg/dL (Negative) 10/14/19 Unknown Urine Glucose (UA) >=500 mg/dL (Negative) 10/14/19 Unknown Urine Ketones Neg mg/dL (Negative) 10/14/19 Unknown Urine Blood Mod (Negative) 10/14/19 Unknown Urine Nitrite Neg (Negative) 10/14/19 Unknown Urine Bilirubin Neg (Negative) 10/14/19 Unknown Urine Urobilinogen < 2.0 mg/dL (<2.0) 10/14/19 Unknown Ur Leukocyte Esterase Neg (Negative) 10/14/19 Unknown Urine WBC (Auto) 1.0 /HPF (0.0-6.0) 10/14/19 Unknown Urine RBC (Auto) 3.0 /HPF (0.0-6.0) 10/14/19 Unknown U Epithel Cells (Auto) 7.0 /HPF (0-13.0) 10/14/19 Unknown Urine Bacteria (Auto) 1+ /HPF (Negative) 10/14/19 Unknown Urine Mucus Few /HPF 10/14/19 Unknown Active Medications - Current Medications Current Medications: Generic Name Dose Route Start Last Admin Trade Name Freq PRN Reason Stop Dose Admin Acetaminophen 650 mg 10/14/19 18:58 10/14/19 22:32 Tylenol PO 650 mg Q4H PRN Administration Pain MILD(1-3)/Fever >100.5/HORN Albuterol 2.5 mg 10/14/19 22:00 10/18/19 01:38 Proventil IH 2.5 mg Q4HRT PRN Administration Shortness Of Breath Furosemide 20 mg 10/15/19 06:00 10/18/19 06:55 Lasix IV 20 mg 0600,1800 ARIANA Administration Guaifenesin 10 ml 10/16/19 00:03 10/18/19 16:47 Guaifenesin Dm Syrup PO 10 ml Q6H PRN Administration Cough Heparin Sodium (Porcine) 5,000 unit 10/14/19 22:00 10/18/19 11:21 Heparin SUB-Q 5,000 unit Q12HR [facility] Administration Insulin Human Isoph/Insulin Regular 20 unit 10/17/19 17:40 10/18/19 16:47 Humulin 70/30 SUB-Q 20 unit BIDDIAB [facility] Administration Insulin Human Lispro 0 unit 10/14/19 23:15 10/18/19 17:20 Humalog SUB-Q 10 unit ACHS [facility] Administration Protocol Lisinopril 5 mg 10/14/19 22:00 10/18/19 11:21 Zestril PO 5 mg BID [facility] Administration Methylprednisolone Sodium Succinate 125 mg 10/17/19 18:00 10/18/19 14:03 Solu-Medrol IV 125 mg Q8HR [facility] Administration Metoprolol Tartrate 12.5 mg 10/14/19 22:00 10/18/19 16:48 Metoprolol PO 12.5 mg BID@0800,1700 [facility] Administration Nifedipine 30 mg 10/15/19 06:00 10/18/19 06:55 Procardia Xl PO 30 mg QDAY@0600 [facility] Administration Ondansetron HCl 4 mg 10/14/19 18:58 Zofran IV Q8H PRN Nausea And Vomiting Sodium Chloride 10 ml 10/14/19 22:00 10/18/19 11:21 Sodium Chloride Flush Syringe 10 Ml IV 10 ml BID [facility] Administration Sodium Chloride 10 ml 10/14/19 18:58 10/16/19 05:55 Sodium Chloride Flush Syringe 10 Ml IV 10 ml PRN PRN Administration LINE FLUSH
[2019-10-19 06:22] LABS: INR 0.93 (0.87-1.13)
[2019-10-19 06:32] LABS: BUN/Creatinine Ratio 42; Blood Urea Nitrogen 21 mg/dL (7-17); Calcium 9.3 mg/dL (8.4-10.2); Hemolysis Index 5
[2019-10-19] MEDS: NIFEdipine XL 30 MG TAB PO SCH ×2 (06:36→22:07)
[2019-10-19] MEDS: FUROSEMIDE 20 MG/2 ML INJ IV SCH ×2 (06:37→17:44)
[2019-10-19] MEDS: INSULIN NPH/REGULAR 70/30 INJ SUB-Q SCH ×2 (08:00→17:46)
[2019-10-19] MEDS: INSULIN LISPRO 100 UNIT/ML SUB-Q SCH ×4 (08:56→22:08)
[2019-10-19] MEDS ORDERED: ALBUTEROL 2.5 MG/3 ML NEBU IH ONE (11:09)
[2019-10-19] MEDS: METOPROLOL TARTRATE 25 MG TAB PO SCH ×2 (12:35→17:43)
[2019-10-19] MEDS: HEPARIN 5,000 UNIT/1 ML VIAL SUB-Q SCH ×2 (12:36→22:07)
[2019-10-19] MEDS: predniSONE 20 MG TAB PO SCH (12:36)
[2019-10-19] MEDS: LISINOPRIL 5 MG TAB PO SCH ×2 (12:36→22:07)
--- NOTE | 2019-10-19 13:25 | Progress Note ---
Assessment and Plan Acute heart failure with a preserved ejection fraction EF 55-60% by echo this admission COPD exacerbation Essential hypertension Type 2 diabetes mellitus Chronic lymphedema Obesity Tobacco abuse Noncompliant with medications and outpatient followup Pulmonary for management of shortness of breath with active wheezing and COPD exacerbation. Subjective Date of service: 10/19/19 Interval history: Cardiac cath has been cancelled due to shortness of breath and active wheezing. Objective Vital Signs Temp Pulse Pulse Resp Resp BP Pulse Ox 10/19/19 12:36 86 153/71 10/19/19 12:35 86 153/71 10/19/19 12:05 98.1 F 86 20 153/71 98 10/19/19 08:47 98.3 F 79 20 151/66 91 10/19/19 05:32 97.4 F L 86 20 153/62 94 10/19/19 00:21 97.8 F 100 H 22 152/71 90 10/18/19 21:40 96 10/18/19 21:38 109 H 20 10/18/19 20:24 97.5 F L 90 22 171/76 92 10/18/19 19:10 96 H 10/18/19 16:51 99.0 F 97 H 20 180/84 94 - Physical Examination General: No Apparent Distress HEENT: Positive: PERRL Neck: Positive: trachea midline Cardiac: Positive: Reg Rate and Rhythm Lungs: Positive: Decreased Breath Sounds, Wheezes Neuro: Positive: Grossly Intact Abdomen: Positive: Unremarkable - Labs and Meds Coagulation 10/19/19 Range/Units 05:36 PT 12.6 (12.2-14.9) Sec. INR 0.93 (0.87-1.13) Comprehensive Metabolic Panel 10/19/19 Range/Units 05:36 Sodium 137 (137-145) mmol/L Potassium 3.9 (3.6-5.0) mmol/L Chloride 89.9 L (98-107) mmol/L Carbon Dioxide 36 H (22-30) mmol/L BUN 21 H (7-17) mg/dL Creatinine 0.5 L (0.7-1.2) mg/dL Glucose 404 H (65-100) mg/dL Calcium 9.3 (8.4-10.2) mg/dL
[2019-10-19] MEDS ORDERED: methylPREDNISolone Sod Succinate 125 MG/2 ML INJ IV ONE (17:18)
--- NOTE | 2019-10-19 17:19 | Progress Note ---
Assessment and Plan Assessment and plan: Patient is a 54 yo woman with a history of MO, Obesity Hypoventilation Syndrome, HTN, DM, Lymphedema, Asthma presents to ED for evaluation. Pt states that she has experienced shortness of breath over the past 4 days with worsening symptoms over the past 2 days. Pt acknowledges decreased exercise tolerance, Orthopnea/PND, dypsnea at rest, dypsnea on exertion, leg edema. Noted to be in acute on chronic hypoxic respiratory failure requiring BiPAP, now weaned off. Acute diastolic congestive heart failure, managed appropriately. Evaluated by cardiology, medications optimized, stress test ordered for 10/17/19 but unable to complete due to bronchospasm. Cardiology has requested Pulm consultation and change the stress test medication. Uncontrolled blood sugars secondary to steroid use, increased Insulin. Wednesday night, patient had 26 beat run of NSVT and acute bronchospasm unable to do stress test on Wednesday, started IV steroid, which helped, dobutamine stess test is abnormal on Wednesday and LHC planned for per Cardiology. Patient went down for Cardiac catherization on but was unable to lay flat due to persistent coughing and sob. She was asking for breathing treatment but none was given, so Cardiac catherization re-scheduled until Wednesday per Certified Technician Specialist. Pulmonology is following for lung disease, suggest wean down steroids but may need to increase dose. --Acute hypoxic respiratory failure secondary to obesity hypoventilation syndrome/MARIA DE JESUS/acute diastolic dysfunction Continue current management trying to wean off o2, she dropped to 88% at rest --Acute Asthma exacerbation treated with IV steroids consult Pulmonology, input noted --Obesity hypoventilation syndrome Current Visit: Yes Status: Acute oxygen, nebs, titrate O2 sats to more than 90% NIPPV as clinically indicated, pulse oximetry Titrate O2 sats to more than 90% Outpatient sleep study to rule out obstructive sleep apnea CPAP BiPAP at night and as needed --Acute diastolic CHF (congestive heart failure) Current Visit: Yes Status: Acute Heart failure medications, input output monitoring, follow echocardiogram Cardiology following, low-sodium diet, fluid restriction, --Type II diabetes mellitus; uncontrolled Current Visit: Yes Status: Acute Accu check, sliding scale coverage , ADA diet Insulin as needed , oral hypoglycemics Add long-acting insulin if needed ,hypoglycemia protocol --HTN (hypertension); moderate control Current Visit: Yes Status: Acute Continue current antihypertensives, PRN medications --Morbid obesity; BMI >50 Dietary modification exercise as tolerated and weight reduction Patient may benefit from evaluation by bariatric team outpatient For weight reduction as outpatient when medically stable --DVT prophylaxis Current Visit: Yes Status: Acute SCD to BLE while in bed, prophylactic lovenox. Closely monitor the patient and adjust management as needed Plan of care reviewed with the patient and her nurse Disposition; continue inpatient care, [facility] once respiratory status improves. History Interval history: Patient was seen and examined. Follow-up on current diagnosis of respiratory failure. No overnight events reported to me. Patient denies any chest pain, shortness breath, nausea/vomiting or severe headaches. Imaging, nursing note, chart, labs and old chart reviewed. Discussed with patient. Hospitalist Physical - Physical exam Narrative exam: Gen: WDWN, NAD, Awake, Alert, Orientated HEENT: NCAT, EOMI, PERRL, OP Clear Neck: supple, no adenopathy, no thyromegaly, no JVD CVS/Heart: RRR, normal S1S2, pulses present bilaterally Chest/Lungs:DIMINISHED BS BILATERAL WITH WHEEZING, Symmetrical chest expansion, good air entry bilaterally GI/Abdomen: soft, NTND, good bowel sounds, no guarding or rebound /Bladder: no suprapubic tenderness, no CVA or paraspinal tenderness Extermity/Skin: no c/c/e, no obvious rash MSK: FROM x 4 Neuro: CN 2-12 grossly intact, no new focal deficits Psych: calm - Constitutional Vitals: Temp Pulse Resp BP Pulse Ox 98.1 F 86 20 153/71 98 10/19/19 12:05 10/19/19 12:36 10/19/19 12:05 10/19/19 12:36 10/19/19 12:05 General appearance: Present: obese (Morbidly obese). Absent: mild distress, well-nourished Results - Labs CBC & Chem 7: 10/18/19 04:58 10/19/19 05:36 Labs: Laboratory Last Values WBC 7.5 K/mm3 (4.5-11.0) 10/18/19 04:58 RBC 5.24 M/mm3 (3.65-5.03) H 10/18/19 04:58 Hgb 14.2 gm/dl (10.1-14.3) 10/18/19 04:58 Hct 42.0 % (30.3-42.9) 10/18/19 04:58 MCV 80 fl (79-97) 10/18/19 04:58 MCH 27 pg (28-32) L 10/18/19 04:58 MCHC 34 % (30-34) 10/18/19 04:58 RDW 15.4 % (13.2-15.2) H 10/18/19 04:58 Plt Count 271 K/mm3 (140-440) 10/18/19 04:58 Lymph % (Auto) 21.7 % (13.4-35.0) 10/14/19 16:02 [place] % (Auto) 9.4 % (0.0-7.3) H 10/14/19 16:02 Eos % (Auto) 1.0 % (0.0-4.3) 10/14/19 16:02 Baso % (Auto) 1.0 % (0.0-1.8) 10/14/19 16:02 Lymph # 1.5 K/mm3 (1.2-5.4) 10/14/19 16:02 [place] # 0.6 K/mm3 (0.0-0.8) 10/14/19 16:02 Eos # 0.1 K/mm3 (0.0-0.4) 10/14/19 16:02 Baso # 0.1 K/mm3 (0.0-0.1) 10/14/19 16:02 Seg Neutrophils % 66.9 % (40.0-70.0) 10/14/19 16:02 Seg Neutrophils # 4.5 K/mm3 (1.8-7.7) 10/14/19 16:02 PT 12.6 Sec. (12.2-14.9) 10/19/19 05:36 INR 0.93 (0.87-1.13) 10/19/19 05:36 Sodium 137 mmol/L (137-145) 10/19/19 05:36 Potassium 3.9 mmol/L (3.6-5.0) 10/19/19 05:36 Chloride 89.9 mmol/L (98-107) L 10/19/19 05:36 Carbon Dioxide 36 mmol/L (22-30) H 10/19/19 05:36 Anion Gap 15 mmol/L 10/19/19 05:36 BUN 21 mg/dL (7-17) H 10/19/19 05:36 Creatinine 0.5 mg/dL (0.7-1.2) L 10/19/19 05:36 Estimated GFR > 60 ml/min 10/19/19 05:36 BUN/Creatinine Ratio 42 % 10/19/19 05:36 Glucose 404 mg/dL (65-100) H 10/19/19 05:36 POC Glucose 285 (70-105) H 10/19/19 12:39 Hemoglobin A1c 11.7 % (4-6) H 10/16/19 07:15 Calcium 9.3 mg/dL (8.4-10.2) 10/19/19 05:36 Magnesium 1.70 mg/dL (1.7-2.3) 10/14/19 19:11 Total Bilirubin 0.50 mg/dL (0.1-1.2) 10/14/19 16:02 AST 14 units/L (5-40) 10/14/19 16:02 ALT 11 units/L (7-56) 10/14/19 16:02 Alkaline Phosphatase 114 units/L (35-129) 10/14/19 16:02 Troponin T < 0.010 ng/mL (0.00-0.029) 10/14/19 19:11 NT-Pro-B Natriuret Pep 503.0 pg/mL (0-900) 10/14/19 16:02 Total Protein 7.5 g/dL (6.3-8.2) 10/14/19 16:02 Albumin 3.4 g/dL (3.9-5) L 10/14/19 16:02 Albumin/Globulin Ratio 0.8 % 10/14/19 16:02 Triglycerides 90 mg/dL (2-149) 10/16/19 07:15 Cholesterol 189 mg/dL (50-199) 10/16/19 07:15 LDL Cholesterol Direct 133 mg/dL (50-130) H 10/16/19 07:15 HDL Cholesterol 50 mg/dL (40-59) 10/16/19 07:15 Cholesterol/HDL Ratio 3.78 % 10/16/19 07:15 TSH 2.720 mlU/mL (0.270-4.200) 10/14/19 19:11 Free T4 1.11 ng/dL (0.76-1.46) 10/14/19 19:11 Urine Color Yellow (Yellow) 10/14/19 Unknown Urine Turbidity Slightly-cloudy (Clear) 10/14/19 Unknown Urine pH 5.0 (5.0-7.0) 10/14/19 Unknown Ur Specific [place] 1.029 (1.003-1.030) 10/14/19 Unknown Urine Protein 30 mg/dl mg/dL (Negative) 10/14/19 Unknown Urine Glucose (UA) >=500 mg/dL (Negative) 10/14/19 Unknown Urine Ketones Neg mg/dL (Negative) 10/14/19 Unknown Urine Blood Mod (Negative) 10/14/19 Unknown Urine Nitrite Neg (Negative) 10/14/19 Unknown Urine Bilirubin Neg (Negative) 10/14/19 Unknown Urine Urobilinogen < 2.0 mg/dL (<2.0) 10/14/19 Unknown Ur Leukocyte Esterase Neg (Negative) 10/14/19 Unknown Urine WBC (Auto) 1.0 /HPF (0.0-6.0) 10/14/19 Unknown Urine RBC (Auto) 3.0 /HPF (0.0-6.0) 10/14/19 Unknown U Epithel Cells (Auto) 7.0 /HPF (0-13.0) 10/14/19 Unknown Urine Bacteria (Auto) 1+ /HPF (Negative) 10/14/19 Unknown Urine Mucus Few /HPF 10/14/19 Unknown Active Medications - Current Medications Current Medications: Generic Name Dose Route Start Last Admin Trade Name Freq PRN Reason Stop Dose Admin Acetaminophen 650 mg 10/14/19 18:58 10/14/19 22:32 Tylenol PO 650 mg Q4H PRN Administration Pain MILD(1-3)/Fever >100.5/HORN Albuterol 2.5 mg 10/14/19 22:00 10/18/19 21:37 Proventil IH 2.5 mg Q4HRT PRN Administration Shortness Of Breath Furosemide 20 mg 10/15/19 06:00 10/19/19 06:37 Lasix IV 20 mg 0600,1800 ARIANA Administration Guaifenesin 10 ml 10/16/19 00:03 10/18/19 21:24 Guaifenesin Dm Syrup PO 10 ml Q6H PRN Administration Cough Heparin Sodium (Porcine) 5,000 unit 10/14/19 22:00 10/19/19 12:36 Heparin SUB-Q 5,000 unit Q12HR ARIANA Administration Insulin Human Isoph/Insulin Regular 20 unit 10/17/19 17:40 10/19/19 08:00 Humulin 70/30 SUB-Q Not Given BIDDIAB ARIANA Insulin Human Lispro 0 unit 10/14/19 23:15 10/19/19 13:45 Humalog SUB-Q 6 unit ACHS ARIANA Administration Protocol Lisinopril 5 mg 10/14/19 22:00 10/19/19 12:36 Zestril PO 5 mg BID ARIANA Administration Metoprolol Tartrate 12.5 mg 10/14/19 22:00 10/19/19 12:35 Metoprolol PO 12.5 mg BID@0800,1700 ARIANA Administration Nifedipine 30 mg 10/15/19 06:00 10/19/19 06:36 Procardia Xl PO Not Given QDAY@0600 ARIANA Ondansetron HCl 4 mg 10/14/19 18:58 Zofran IV Q8H PRN Nausea And Vomiting Prednisone 60 mg 10/19/19 10:00 10/19/19 12:36 Deltasone PO 60 mg QDAY ARIANA Administration Sodium Chloride 10 ml 10/14/19 22:00 10/19/19 12:36 Sodium Chloride Flush Syringe 10 Ml IV 10 ml BID ARIANA Administration Sodium Chloride 10 ml 10/14/19 18:58 10/16/19 05:55 Sodium Chloride Flush Syringe 10 Ml IV 10 ml PRN PRN Administration LINE FLUSH
[2019-10-19] MEDS: guaiFENesin DM 200/20 MG ORAL LIQD 10 ML PO PRN (22:08)
[2019-10-20] MEDS: ALBUTEROL 2.5 MG/3 ML NEBU IH PRN (03:38)
[2019-10-20] MEDS: NIFEdipine XL 30 MG TAB PO SCH (05:53)
[2019-10-20] MEDS: FUROSEMIDE 20 MG/2 ML INJ IV SCH ×2 (05:53→18:31)
[2019-10-20] MEDS: IPRATROPIUM/ALBUTEROL SULFATE 3 ML AMPUL.NEB IH SCH ×3 (08:05→19:43)
--- NOTE | 2019-10-20 09:07 | Progress Note ---
Assessment and Plan Acute heart failure with a preserved ejection fraction EF 55-60% by echo this admission abnormal thallium stress test that showed a large mostly fixed lateral wall defect of prior myocardial infarction. COPD exacerbation Essential hypertension Type 2 diabetes mellitus Chronic lymphedema Obesity Tobacco abuse Noncompliant with medications and outpatient followup Recommendations: Pulmonary for management of shortness of breath, coughs with active wheezing. We will plan for a cardiac catheterization on Wednesday once respiratory status is stable. Subjective Date of service: 10/20/19 Interval history: Patient is sitting up in the bedside chair. She has no complaints. Still with active wheezing. Objective Vital Signs Temp Pulse Pulse Resp Resp BP Pulse Ox 10/20/19 08:18 97.8 F 84 18 146/99 98 10/20/19 08:06 82 18 95 10/20/19 04:49 98.0 F 87 18 157/74 93 10/20/19 03:41 82 18 10/19/19 23:38 98.0 F 76 18 167/74 92 10/19/19 22:00 90 22 10/19/19 21:58 97 10/19/19 19:20 98.7 F 80 24 181/82 89 10/19/19 17:43 80 175/80 10/19/19 17:13 97.8 F 83 20 175/80 97 10/19/19 12:36 86 153/71 10/19/19 12:35 86 153/71 10/19/19 12:05 98.1 F 86 20 153/71 98 10/19/19 10:00 77 - Physical Examination General: No Apparent Distress HEENT: Positive: PERRL Neck: Positive: trachea midline Cardiac: Positive: Reg Rate and Rhythm Lungs: Positive: Decreased Breath Sounds, Wheezes Neuro: Positive: Grossly Intact Extremities: Present: +1 Edema, Other (Chronic lymphedema)
[2019-10-20] MEDS: LISINOPRIL 5 MG TAB PO SCH ×2 (09:10→22:26)
[2019-10-20] MEDS: METOPROLOL TARTRATE 25 MG TAB PO SCH ×2 (09:10→18:08)
[2019-10-20] MEDS: predniSONE 20 MG TAB PO SCH (09:11)
[2019-10-20] MEDS: INSULIN LISPRO 100 UNIT/ML SUB-Q SCH ×4 (09:11→22:26)
[2019-10-20] MEDS: HEPARIN 5,000 UNIT/1 ML VIAL SUB-Q SCH ×2 (09:11→22:26)
[2019-10-20] MEDS: INSULIN NPH/REGULAR 70/30 INJ SUB-Q SCH ×2 (09:12→18:00)
--- NOTE | 2019-10-20 12:15 | Progress Note ---
Assessment and Plan 54 y/o obese female with acute respiratory failure, and asthma vs COPD exacerbation. 1. Would drop steroids down to 60mg of PRednisone daily 2. Patient will need walk test prior to discharge 3. Will need CM consult to help with medications as patient has no funding 4. Will continue to follow It will take quite a bit of time to get this patient completely wheeze free given her longstanding history of noncompliance with therapy. Per cards plan to repeat/attempt cath on Wednesday. Subjective Date of service: 10/20/19 Interval history: Cath cancelled secondary to wheezing. Spoke with Dr. Leary on yesterday. Objective - Constitutional Vitals: Vital Signs - 12hr 10/20/19 10/20/19 10/20/19 03:41 04:49 08:06 Temperature 98.0 F Pulse Rate 87 Pulse Rate [ 82 82 Throughout] Respiratory 18 Rate Respiratory 18 18 Rate [ Throughout] Blood Pressure 157/74 O2 Sat by Pulse 93 95 Oximetry 10/20/19 10/20/19 08:18 09:10 Temperature 97.8 F Pulse Rate 84 84 Pulse Rate [ Throughout] Respiratory 18 Rate Respiratory Rate [ Throughout] Blood Pressure 146/99 146/99 O2 Sat by Pulse 98 Oximetry - Labs CBC & Chem 7: 10/18/19 04:58 10/19/19 05:36 Labs: Abnormal lab results 10/19/19 10/19/19 10/19/19 Range/Units 12:39 16:34 21:24 POC Glucose 285 H 458 H 349 H (70-105) 10/20/19 10/20/19 Range/Units 08:08 11:17 POC Glucose 317 H 344 H (70-105) Medications & Allergies - Medications Allergies/Adverse Reactions: Allergies No Known Allergies Allergy (Verified 12/02/16 17:08) Home Medications: Home Medications Medication Instructions Recorded Confirmed Last Taken Type Insulin NPH/Regular [NovoLIN 70/30] 7 unit SUB-Q BIDDIAB 05/13/15 10/15/19 05/12/15 History 14 units Ibuprofen [Motrin 600 MG tab] 600 mg PO Q8H PRN #60 tablet 12/02/16 10/15/19 Unknown Rx Active Medications: Generic Name Dose Route Start Last Admin Trade Name Freq PRN Reason Stop Dose Admin Acetaminophen 650 mg 10/14/19 18:58 10/14/19 22:32 Tylenol PO 650 mg Q4H PRN Administration Pain MILD(1-3)/Fever >100.5/HORN Albuterol 2.5 mg 10/14/19 22:00 10/20/19 03:38 Proventil IH 2.5 mg Q4HRT PRN Administration Shortness Of Breath Albuterol/Ipratropium 1 ampul 10/20/19 08:00 10/20/19 08:05 Duoneb *Not For Prn Use* IH 1 ampul Q6HRT ARIANA Administration Furosemide 20 mg 10/15/19 06:00 10/20/19 05:53 Lasix IV 20 mg 0600,1800 ARIANA Administration Guaifenesin 10 ml 10/16/19 00:03 10/19/19 22:08 Guaifenesin Dm Syrup PO 10 ml Q6H PRN Administration Cough Heparin Sodium (Porcine) 5,000 unit 10/14/19 22:00 10/20/19 09:11 Heparin SUB-Q 5,000 unit Q12HR ARIANA Administration Insulin Human Isoph/Insulin Regular 20 unit 10/17/19 17:40 10/20/19 09:12 Humulin 70/30 SUB-Q 20 unit BIDDIAB ARIANA Administration Insulin Human Lispro 0 unit 10/14/19 23:15 10/20/19 09:11 Humalog SUB-Q 8 unit ACHS ARIANA Administration Protocol Lisinopril 5 mg 10/14/19 22:00 10/20/19 09:10 Zestril PO 5 mg BID ARIANA Administration Metoprolol Tartrate 12.5 mg 10/14/19 22:00 10/20/19 09:10 Metoprolol PO 12.5 mg BID@0800,1700 ARIANA Administration Nifedipine 30 mg 10/15/19 06:00 10/20/19 05:53 Procardia Xl PO 30 mg QDAY@0600 ARIANA Administration Ondansetron HCl 4 mg 10/14/19 18:58 Zofran IV Q8H PRN Nausea And Vomiting Prednisone 60 mg 10/19/19 10:00 10/20/19 09:11 Deltasone PO 60 mg QDAY ARIANA Administration Sodium Chloride 10 ml 10/14/19 22:00 10/20/19 09:12 Sodium Chloride Flush Syringe 10 Ml IV 10 ml BID ARIANA Administration Sodium Chloride 10 ml 10/14/19 18:58 10/16/19 05:55 Sodium Chloride Flush Syringe 10 Ml IV 10 ml PRN PRN Administration LINE FLUSH
[2019-10-20] MEDS: BUDESONIDE 0.5 MG/2 ML NEBU IH SCH ×2 (14:59→19:43)
--- NOTE | 2019-10-20 16:00 | Progress Note ---
Assessment and Plan Assessment and plan: Patient is a 54 yo woman with a history of MO, Obesity Hypoventilation Syndrome, HTN, DM, Lymphedema, Asthma presents to ED for evaluation. Pt states that she has experienced shortness of breath over the past 4 days with worsening symptoms over the past 2 days. Pt acknowledges decreased exercise tolerance, Orthopnea/PND, dypsnea at rest, dypsnea on exertion, leg edema. Noted to be in acute on chronic hypoxic respiratory failure requiring BiPAP, now weaned off. Acute diastolic congestive heart failure, managed appropriately. Evaluated by cardiology, medications optimized, stress test ordered for 10/17/19 but unable to complete due to bronchospasm. Cardiology has requested Pulm consultation and change the stress test medication. Uncontrolled blood sugars secondary to steroid use, increased Insulin. Wednesday night, patient had 26 beat run of NSVT and acute bronchospasm unable to do stress test on Wednesday, started IV steroid, which helped, dobutamine stess test is abnormal on Wednesday and LHC planned for per Cardiology. Patient went down for Cardiac catherization on but was unable to lay flat due to persistent coughing and sob. She was asking for breathing treatment but none was given, so Cardiac catherization re-scheduled until Wednesday per Daycare Provider. Pulmonology is following for lung disease, suggest wean down steroids. --Acute hypoxic respiratory failure secondary to obesity hypoventilation syndrome/MARIA DE JESUS/acute diastolic dysfunction Continue current management trying to wean off o2, she dropped to 88% at rest --Acute Asthma exacerbation treated with IV steroids consult Pulmonology, input noted --Obesity hypoventilation syndrome Current Visit: Yes Status: Acute oxygen, nebs, titrate O2 sats to more than 90% NIPPV as clinically indicated, pulse oximetry Titrate O2 sats to more than 90% Outpatient sleep study to rule out obstructive sleep apnea CPAP BiPAP at night and as needed --Acute diastolic CHF (congestive heart failure) Current Visit: Yes Status: Acute Heart failure medications, input output monitoring, follow echocardiogram Cardiology following, low-sodium diet, fluid restriction, --Type II diabetes mellitus; uncontrolled Current Visit: Yes Status: Acute Accu check, sliding scale coverage , ADA diet Insulin as needed , oral hypoglycemics Add long-acting insulin if needed ,hypoglycemia protocol --HTN (hypertension); moderate control Current Visit: Yes Status: Acute Continue current antihypertensives, PRN medications --Morbid obesity; BMI >50 Dietary modification exercise as tolerated and weight reduction Patient may benefit from evaluation by bariatric team outpatient For weight reduction as outpatient when medically stable --DVT prophylaxis Current Visit: Yes Status: Acute SCD to BLE while in bed, prophylactic lovenox. Closely monitor the patient and adjust management as needed Plan of care reviewed with the patient and her nurse Disposition; continue inpatient care, [facility] once respiratory status improves, hopefully [facility] on Wednesday History Interval history: Patient was seen and examined. Follow-up on current diagnosis of respiratory failure. No overnight events reported to me. Patient denies any chest pain, shortness breath, nausea/vomiting or severe headaches. Imaging, nursing note, chart, labs and old chart reviewed. Discussed with patient. Hospitalist Physical - Physical exam Narrative exam: Gen: WDWN, NAD, Awake, Alert, Orientated HEENT: NCAT, EOMI, PERRL, OP Clear Neck: supple, no adenopathy, no thyromegaly, no JVD CVS/Heart: RRR, normal S1S2, pulses present bilaterally Chest/Lungs:DIMINISHED BS BILATERAL WITH WHEEZING, Symmetrical chest expansion, good air entry bilaterally GI/Abdomen: soft, NTND, good bowel sounds, no guarding or rebound /Bladder: no suprapubic tenderness, no CVA or paraspinal tenderness Extermity/Skin: no c/c/e, no obvious rash MSK: FROM x 4 Neuro: CN 2-12 grossly intact, no new focal deficits Psych: calm - Constitutional Vitals: Temp Pulse Resp BP Pulse Ox 97.9 F 89 18 150/73 96 10/20/19 12:07 10/20/19 14:39 10/20/19 14:39 10/20/19 12:07 10/20/19 12:07 General appearance: Present: obese (Morbidly obese). Absent: mild distress, well-nourished Results - Labs CBC & Chem 7: 10/18/19 04:58 10/19/19 05:36 Labs: Laboratory Last Values WBC 7.5 K/mm3 (4.5-11.0) 10/18/19 04:58 RBC 5.24 M/mm3 (3.65-5.03) H 10/18/19 04:58 Hgb 14.2 gm/dl (10.1-14.3) 10/18/19 04:58 Hct 42.0 % (30.3-42.9) 10/18/19 04:58 MCV 80 fl (79-97) 10/18/19 04:58 MCH 27 pg (28-32) L 10/18/19 04:58 MCHC 34 % (30-34) 10/18/19 04:58 RDW 15.4 % (13.2-15.2) H 10/18/19 04:58 Plt Count 271 K/mm3 (140-440) 10/18/19 04:58 Lymph % (Auto) 21.7 % (13.4-35.0) 10/14/19 16:02 [place] % (Auto) 9.4 % (0.0-7.3) H 10/14/19 16:02 Eos % (Auto) 1.0 % (0.0-4.3) 10/14/19 16:02 Baso % (Auto) 1.0 % (0.0-1.8) 10/14/19 16:02 Lymph # 1.5 K/mm3 (1.2-5.4) 10/14/19 16:02 [place] # 0.6 K/mm3 (0.0-0.8) 10/14/19 16:02 Eos # 0.1 K/mm3 (0.0-0.4) 10/14/19 16:02 Baso # 0.1 K/mm3 (0.0-0.1) 10/14/19 16:02 Seg Neutrophils % 66.9 % (40.0-70.0) 10/14/19 16:02 Seg Neutrophils # 4.5 K/mm3 (1.8-7.7) 10/14/19 16:02 PT 12.6 Sec. (12.2-14.9) 10/19/19 05:36 INR 0.93 (0.87-1.13) 10/19/19 05:36 Sodium 137 mmol/L (137-145) 10/19/19 05:36 Potassium 3.9 mmol/L (3.6-5.0) 10/19/19 05:36 Chloride 89.9 mmol/L (98-107) L 10/19/19 05:36 Carbon Dioxide 36 mmol/L (22-30) H 10/19/19 05:36 Anion Gap 15 mmol/L 10/19/19 05:36 BUN 21 mg/dL (7-17) H 10/19/19 05:36 Creatinine 0.5 mg/dL (0.7-1.2) L 10/19/19 05:36 Estimated GFR > 60 ml/min 10/19/19 05:36 BUN/Creatinine Ratio 42 % 10/19/19 05:36 Glucose 404 mg/dL (65-100) H 10/19/19 05:36 POC Glucose 344 (70-105) H 10/20/19 11:17 Hemoglobin A1c 11.7 % (4-6) H 10/16/19 07:15 Calcium 9.3 mg/dL (8.4-10.2) 10/19/19 05:36 Magnesium 1.70 mg/dL (1.7-2.3) 10/14/19 19:11 Total Bilirubin 0.50 mg/dL (0.1-1.2) 10/14/19 16:02 AST 14 units/L (5-40) 10/14/19 16:02 ALT 11 units/L (7-56) 10/14/19 16:02 Alkaline Phosphatase 114 units/L (35-129) 10/14/19 16:02 Troponin T < 0.010 ng/mL (0.00-0.029) 10/14/19 19:11 NT-Pro-B Natriuret Pep 503.0 pg/mL (0-900) 10/14/19 16:02 Total Protein 7.5 g/dL (6.3-8.2) 10/14/19 16:02 Albumin 3.4 g/dL (3.9-5) L 10/14/19 16:02 Albumin/Globulin Ratio 0.8 % 10/14/19 16:02 Triglycerides 90 mg/dL (2-149) 10/16/19 07:15 Cholesterol 189 mg/dL (50-199) 10/16/19 07:15 LDL Cholesterol Direct 133 mg/dL (50-130) H 10/16/19 07:15 HDL Cholesterol 50 mg/dL (40-59) 10/16/19 07:15 Cholesterol/HDL Ratio 3.78 % 10/16/19 07:15 TSH 2.720 mlU/mL (0.270-4.200) 10/14/19 19:11 Free T4 1.11 ng/dL (0.76-1.46) 10/14/19 19:11 Urine Color Yellow (Yellow) 10/14/19 Unknown Urine Turbidity Slightly-cloudy (Clear) 10/14/19 Unknown Urine pH 5.0 (5.0-7.0) 10/14/19 Unknown Ur Specific [place] 1.029 (1.003-1.030) 10/14/19 Unknown Urine Protein 30 mg/dl mg/dL (Negative) 10/14/19 Unknown Urine Glucose (UA) >=500 mg/dL (Negative) 10/14/19 Unknown Urine Ketones Neg mg/dL (Negative) 10/14/19 Unknown Urine Blood Mod (Negative) 10/14/19 Unknown Urine Nitrite Neg (Negative) 10/14/19 Unknown Urine Bilirubin Neg (Negative) 10/14/19 Unknown Urine Urobilinogen < 2.0 mg/dL (<2.0) 10/14/19 Unknown Ur Leukocyte Esterase Neg (Negative) 10/14/19 Unknown Urine WBC (Auto) 1.0 /HPF (0.0-6.0) 10/14/19 Unknown Urine RBC (Auto) 3.0 /HPF (0.0-6.0) 10/14/19 Unknown U Epithel Cells (Auto) 7.0 /HPF (0-13.0) 10/14/19 Unknown Urine Bacteria (Auto) 1+ /HPF (Negative) 10/14/19 Unknown Urine Mucus Few /HPF 10/14/19 Unknown Active Medications - Current Medications Current Medications: Generic Name Dose Route Start Last Admin Trade Name Freq PRN Reason Stop Dose Admin Acetaminophen 650 mg 10/14/19 18:58 10/14/19 22:32 Tylenol PO 650 mg Q4H PRN Administration Pain MILD(1-3)/Fever >100.5/HORN Albuterol 2.5 mg 10/14/19 22:00 10/20/19 03:38 Proventil IH 2.5 mg Q4HRT PRN Administration Shortness Of Breath Albuterol/Ipratropium 1 ampul 10/20/19 08:00 10/20/19 14:38 Duoneb *Not For Prn Use* IH 1 ampul Q6HRT ARIANA Administration Budesonide 0.5 mg 10/20/19 13:30 10/20/19 14:59 Pulmicort IH 0.5 mg Q12HRT ARIANA Administration Furosemide 20 mg 10/15/19 06:00 10/20/19 05:53 Lasix IV 20 mg 0600,1800 ARIANA Administration Guaifenesin 10 ml 10/16/19 00:03 10/19/19 22:08 Guaifenesin Dm Syrup PO 10 ml Q6H PRN Administration Cough Heparin Sodium (Porcine) 5,000 unit 10/14/19 22:00 10/20/19 09:11 Heparin SUB-Q 5,000 unit Q12HR ARIANA Administration Insulin Human Isoph/Insulin Regular 20 unit 10/17/19 17:40 10/20/19 09:12 Humulin 70/30 SUB-Q 20 unit BIDDIAB ARIANA Administration Insulin Human Lispro 0 unit 10/14/19 23:15 10/20/19 13:42 Humalog SUB-Q 8 unit ACHS ARIANA Administration Protocol Lisinopril 5 mg 10/14/19 22:00 10/20/19 09:10 Zestril PO 5 mg BID ARIANA Administration Metoprolol Tartrate 12.5 mg 10/14/19 22:00 10/20/19 09:10 Metoprolol PO 12.5 mg BID@0800,1700 ARIANA Administration Nifedipine 30 mg 10/15/19 06:00 10/20/19 05:53 Procardia Xl PO 30 mg QDAY@0600 ARIANA Administration Ondansetron HCl 4 mg 10/14/19 18:58 Zofran IV Q8H PRN Nausea And Vomiting Prednisone 60 mg 10/19/19 10:00 10/20/19 09:11 Deltasone PO 60 mg QDAY ARIANA Administration Sodium Chloride 10 ml 10/14/19 22:00 10/20/19 09:12 Sodium Chloride Flush Syringe 10 Ml IV 10 ml BID ARIANA Administration Sodium Chloride 10 ml 10/14/19 18:58 10/16/19 05:55 Sodium Chloride Flush Syringe 10 Ml IV 10 ml PRN PRN Administration LINE FLUSH Nutrition/Malnutrition Assess - Dietary Evaluation Nutrition/Malnutrition Findings: Nutrition Notes Start: 10/20/19 11:21 Freq: Status: Active Protocol: Document 10/20/19 11:21 CT (Rec: 10/20/19 11:30 CT [id number]) Co-Sign 10/20/19 11:21 LP Nutrition Notes Need for Assessment generated from: LOS,Education Initial or Follow up Assessment Current Diagnosis Diabetes,Hypertension,Heart Failure Other Pertinent Diagnosis Hypoventilation syndrome, Lymphedema, [place], morbid obesity Current Diet Cardiac/consistent CHO Labs/Tests POC Glu 317 A1c 11.3 Pertinent Medications Lasix Humalog Humulin Height 5 ft 4 in Weight 141.5 kg Usual Body Weight 132.903 kg [place] Body Weight (kg) 54.54 BMI 53.5 Intake Prior to Admission Good Weight change and time frame wt gain noted likely d/t fluid accumulation Weight Status Morbidly Obese Subjective/Other Information LOS screen and diet education on heart healthy carbohydrate counting. Pt stated that her UBW 293 lbs and that she has not noticed any wt loss. Pt stated eating well [employer] and consumed 100% of breakfast this am. Pt has not had any previous diet education and accepted education and the handout. Per physical assessment pt has pitting +2 edema. Per ADLs pt was eating 50% of meals. Percent of energy/protein needs met: 92% energy / 72% protein Burn Absent Trauma Absent GI Symptoms None Current % PO Good (75-100%) Minimum of two criteria No Fluid Accumulation Moderate to Severe (severe) #1 Nutrition Diagnosis Food and nutrition-related knowledge deficit Etiology no previous knowledge on cardiac/consistent CHO diet As Evidenced by Signs and Symptoms pt acceptance of education and handout Is patient on ventilator? No Is Patient Ambulatory and/or Out of Bed Yes REE-([place]-ambulatory/OOB) [ 2587.000 [id number]] Kcal/Kg value to use for calculation 10 Approximate Energy Requirements Using 1415 kcal/Kg Calculation Used for Recommendations Kcal/kg Additional Notes Protein needs: 78-98 g/kg/day (0.8-1 g/kg/day AdBW 98 kg) Fluid needs: 1 ml/kcal or per MD Nutrition Intervention Change Diet Order: Continue cardiac/consistent CHO Teaching Recipient Patient Learning Readiness Good Teaching Methods Discussion,Handout Education Handouts Provided heart healthy consistent CHO Barriers to Learning No Barriers RD phone number provided Yes Patient aware of follow up options Yes Goal #1 Meet >75% of energy and protein needs Anticipated Discharge Needs: cardiac/consistent cho Follow-Up By: 10/27/19 Additional Comments Follow up for stable PO intakes
[2019-10-21] MEDS: IPRATROPIUM/ALBUTEROL SULFATE 3 ML AMPUL.NEB IH SCH ×4 (01:04→20:16)
[2019-10-21] MEDS: NIFEdipine XL 30 MG TAB PO SCH (05:48)
[2019-10-21] MEDS: FUROSEMIDE 20 MG/2 ML INJ IV SCH ×2 (05:48→18:02)
[2019-10-21] MEDS: BUDESONIDE 0.5 MG/2 ML NEBU IH SCH ×2 (07:55→20:16)
[2019-10-21] MEDS: INSULIN LISPRO 100 UNIT/ML SUB-Q SCH ×4 (08:24→22:15)
[2019-10-21] MEDS: METOPROLOL TARTRATE 25 MG TAB PO SCH ×2 (08:25→18:02)
[2019-10-21] MEDS: INSULIN NPH/REGULAR 70/30 INJ SUB-Q SCH ×2 (08:25→18:01)
--- NOTE | 2019-10-21 09:16 | Progress Note ---
Assessment and Plan Acute heart failure with a preserved ejection fraction EF 55-60% by echo this admission abnormal thallium stress test that showed a large mostly fixed lateral wall defect of prior myocardial infarction. COPD exacerbation Essential hypertension Type 2 diabetes mellitus Chronic lymphedema Obesity Tobacco abuse Noncompliant with medications and outpatient followup Recommendations: Pulmonary for management of shortness of breath, coughs with active wheezing. We will plan for a cardiac catheterization on Wednesday once respiratory status is stable. Subjective Date of service: 10/21/19 Principal diagnosis: Heart Failure Interval history: Patient states that she is feeling better but she continues to have audible wheezing Objective Vital Signs Temp Pulse Pulse Resp Resp BP BP 10/21/19 08:17 98 H 20 10/21/19 07:55 10/21/19 07:37 98.1 F 87 18 161/77 10/21/19 05:53 98.0 F 10/21/19 05:52 86 20 159/70 10/21/19 01:04 86 16 10/20/19 23:32 97.4 F L 10/20/19 23:31 85 20 172/84 10/20/19 22:00 76 22 10/20/19 21:32 97.7 F 87 20 155/67 10/20/19 19:56 10/20/19 19:44 83 15 10/20/19 18:08 94 H 152/70 10/20/19 16:57 98.0 F 93 H 20 152/70 10/20/19 14:39 89 18 10/20/19 12:07 97.9 F 75 20 150/73 10/20/19 10:00 82 Pulse Ox 10/21/19 08:17 10/21/19 07:55 96 10/21/19 07:37 91 10/21/19 05:53 10/21/19 05:52 93 10/21/19 01:04 10/20/19 23:32 10/20/19 23:31 97 10/20/19 22:00 10/20/19 21:32 95 10/20/19 19:56 98 10/20/19 19:44 10/20/19 18:08 10/20/19 16:57 97 10/20/19 14:39 10/20/19 12:07 96 10/20/19 10:00 - Physical Examination General: No Apparent Distress HEENT: Positive: PERRL Neck: Positive: trachea midline Cardiac: Positive: Reg Rate and Rhythm Lungs: Positive: Wheezes Neuro: Positive: Grossly Intact Abdomen: Positive: Unremarkable Extremities: Present: +1 Edema, Other (Chronic lymphedema)
[2019-10-21] MEDS: predniSONE 20 MG TAB PO SCH (11:41)
[2019-10-21] MEDS: LISINOPRIL 5 MG TAB PO SCH ×2 (11:42→22:15)
[2019-10-21] MEDS: HEPARIN 5,000 UNIT/1 ML VIAL SUB-Q SCH ×2 (11:42→22:15)
--- NOTE | 2019-10-21 12:43 | Progress Note ---
Assessment and Plan Assessment and plan: Patient is a 54 yo woman with a history of MO, Obesity Hypoventilation Syndrome, HTN, DM, Lymphedema, Asthma presents to ED for evaluation. Pt states that she has experienced shortness of breath over the past 4 days with worsening symptoms over the past 2 days. Pt acknowledges decreased exercise tolerance, Orthopnea/PND, dypsnea at rest, dypsnea on exertion, leg edema. Noted to be in acute on chronic hypoxic respiratory failure requiring BiPAP, now weaned off. Acute diastolic congestive heart failure, managed appropriately. Evaluated by cardiology, medications optimized, stress test ordered for 10/17/19 but unable to complete due to bronchospasm. Cardiology has requested Pulm consultation and change the stress test medication. Uncontrolled blood sugars secondary to steroid use, increased Insulin. Wednesday night, patient had 26 beat run of NSVT and acute bronchospasm unable to do stress test on Wednesday, started IV steroid, which helped, dobutamine stess test is abnormal on Wednesday and LHC planned for per Cardiology. Patient went down for Cardiac catherization on but was unable to lay flat due to persistent coughing and sob. She was asking for breathing treatment but none was given, so Cardiac catherization re- scheduled until Wednesday per Chemical Supervisor. Pulmonology is following for lung disease, suggest wean down steroids. --Acute hypoxic respiratory failure secondary to obesity hypoventilation syndrome/MARIA DE JESUS/acute diastolic dysfunction Continue current management trying to wean off o2, she dropped to 88% at rest --Acute Asthma exacerbation treated with IV steroids consult Pulmonology, input noted --Obesity hypoventilation syndrome Current Visit: Yes Status: Acute oxygen, nebs, titrate O2 sats to more than 90% NIPPV as clinically indicated, pulse oximetry Titrate O2 sats to more than 90% Outpatient sleep study to rule out obstructive sleep apnea CPAP BiPAP at night and as needed --Acute diastolic CHF (congestive heart failure) Current Visit: Yes Status: Acute Heart failure medications, input output monitoring, follow echocardiogram Cardiology following, low-sodium diet, fluid restriction, --Type II diabetes mellitus; uncontrolled Current Visit: Yes Status: Acute Accu check, sliding scale coverage , ADA diet Insulin as needed , oral hypoglycemics Add long-acting insulin if needed ,hypoglycemia protocol --HTN (hypertension); moderate control Current Visit: Yes Status: Acute Continue current antihypertensives, PRN medications --Morbid obesity; BMI >50 Dietary modification exercise as tolerated and weight reduction Patient may benefit from evaluation by bariatric team outpatient For weight reduction as outpatient when medically stable --DVT prophylaxis Current Visit: Yes Status: Acute SCD to BLE while in bed, prophylactic lovenox. Closely monitor the patient and adjust management as needed Plan of care reviewed with the patient and her nurse Disposition; continue inpatient care, [facility] once respiratory status improves, hopefully [facility] on Wednesday History Interval history: Patient was seen and examined. Follow-up on current diagnosis of respiratory failure. No overnight events reported to me. Patient denies any chest pain, shortness breath, nausea/vomiting or severe headaches. Imaging, nursing note, chart, labs and old chart reviewed. Discussed with patient. Hospitalist Physical - Physical exam Narrative exam: Gen: WDWN, NAD, Awake, Alert, Orientated HEENT: NCAT, EOMI, PERRL, OP Clear Neck: supple, no adenopathy, no thyromegaly, no JVD CVS/Heart: RRR, normal S1S2, pulses present bilaterally Chest/Lungs:DIMINISHED BS BILATERAL WITH WHEEZING, Symmetrical chest expansion, good air entry bilaterally GI/Abdomen: soft, NTND, good bowel sounds, no guarding or rebound /Bladder: no suprapubic tenderness, no CVA or paraspinal tenderness Extermity/Skin: no c/c/e, no obvious rash MSK: FROM x 4 Neuro: CN 2-12 grossly intact, no new focal deficits Psych: calm - Constitutional Vitals: Temp Pulse Resp BP Pulse Ox 98.1 F 98 H 20 161/77 96 10/21/19 07:37 10/21/19 08:17 10/21/19 08:17 10/21/19 07:37 10/21/19 07:55 General appearance: Present: obese (Morbidly obese). Absent: mild distress, well-nourished Results - Labs CBC & Chem 7: 10/18/19 04:58 10/19/19 05:36 Labs: Laboratory Last Values WBC 7.5 K/mm3 (4.5-11.0) 10/18/19 04:58 RBC 5.24 M/mm3 (3.65-5.03) H 10/18/19 04:58 Hgb 14.2 gm/dl (10.1-14.3) 10/18/19 04:58 Hct 42.0 % (30.3-42.9) 10/18/19 04:58 MCV 80 fl (79-97) 10/18/19 04:58 MCH 27 pg (28-32) L 10/18/19 04:58 MCHC 34 % (30-34) 10/18/19 04:58 RDW 15.4 % (13.2-15.2) H 10/18/19 04:58 Plt Count 271 K/mm3 (140-440) 10/18/19 04:58 Lymph % (Auto) 21.7 % (13.4-35.0) 10/14/19 16:02 [place] % (Auto) 9.4 % (0.0-7.3) H 10/14/19 16:02 Eos % (Auto) 1.0 % (0.0-4.3) 10/14/19 16:02 Baso % (Auto) 1.0 % (0.0-1.8) 10/14/19 16:02 Lymph # 1.5 K/mm3 (1.2-5.4) 10/14/19 16:02 [place] # 0.6 K/mm3 (0.0-0.8) 10/14/19 16:02 Eos # 0.1 K/mm3 (0.0-0.4) 10/14/19 16:02 Baso # 0.1 K/mm3 (0.0-0.1) 10/14/19 16:02 Seg Neutrophils % 66.9 % (40.0-70.0) 10/14/19 16:02 Seg Neutrophils # 4.5 K/mm3 (1.8-7.7) 10/14/19 16:02 PT 12.6 Sec. (12.2-14.9) 10/19/19 05:36 INR 0.93 (0.87-1.13) 10/19/19 05:36 Sodium 137 mmol/L (137-145) 10/19/19 05:36 Potassium 3.9 mmol/L (3.6-5.0) 10/19/19 05:36 Chloride 89.9 mmol/L (98-107) L 10/19/19 05:36 Carbon Dioxide 36 mmol/L (22-30) H 10/19/19 05:36 Anion Gap 15 mmol/L 10/19/19 05:36 BUN 21 mg/dL (7-17) H 10/19/19 05:36 Creatinine 0.5 mg/dL (0.7-1.2) L 10/19/19 05:36 Estimated GFR > 60 ml/min 10/19/19 05:36 BUN/Creatinine Ratio 42 % 10/19/19 05:36 Glucose 404 mg/dL (65-100) H 10/19/19 05:36 POC Glucose 230 (70-105) H 10/21/19 11:52 Hemoglobin A1c 11.7 % (4-6) H 10/16/19 07:15 Calcium 9.3 mg/dL (8.4-10.2) 10/19/19 05:36 Magnesium 1.70 mg/dL (1.7-2.3) 10/14/19 19:11 Total Bilirubin 0.50 mg/dL (0.1-1.2) 10/14/19 16:02 AST 14 units/L (5-40) 10/14/19 16:02 ALT 11 units/L (7-56) 10/14/19 16:02 Alkaline Phosphatase 114 units/L (35-129) 10/14/19 16:02 Troponin T < 0.010 ng/mL (0.00-0.029) 10/14/19 19:11 NT-Pro-B Natriuret Pep 503.0 pg/mL (0-900) 10/14/19 16:02 Total Protein 7.5 g/dL (6.3-8.2) 10/14/19 16:02 Albumin 3.4 g/dL (3.9-5) L 10/14/19 16:02 Albumin/Globulin Ratio 0.8 % 10/14/19 16:02 Triglycerides 90 mg/dL (2-149) 10/16/19 07:15 Cholesterol 189 mg/dL (50-199) 10/16/19 07:15 LDL Cholesterol Direct 133 mg/dL (50-130) H 10/16/19 07:15 HDL Cholesterol 50 mg/dL (40-59) 10/16/19 07:15 Cholesterol/HDL Ratio 3.78 % 10/16/19 07:15 TSH 2.720 mlU/mL (0.270-4.200) 10/14/19 19:11 Free T4 1.11 ng/dL (0.76-1.46) 10/14/19 19:11 Urine Color Yellow (Yellow) 10/14/19 Unknown Urine Turbidity Slightly-cloudy (Clear) 10/14/19 Unknown Urine pH 5.0 (5.0-7.0) 10/14/19 Unknown Ur Specific [place] 1.029 (1.003-1.030) 10/14/19 Unknown Urine Protein 30 mg/dl mg/dL (Negative) 10/14/19 Unknown Urine Glucose (UA) >=500 mg/dL (Negative) 10/14/19 Unknown Urine Ketones Neg mg/dL (Negative) 10/14/19 Unknown Urine Blood Mod (Negative) 10/14/19 Unknown Urine Nitrite Neg (Negative) 10/14/19 Unknown Urine Bilirubin Neg (Negative) 10/14/19 Unknown Urine Urobilinogen < 2.0 mg/dL (<2.0) 10/14/19 Unknown Ur Leukocyte Esterase Neg (Negative) 10/14/19 Unknown Urine WBC (Auto) 1.0 /HPF (0.0-6.0) 10/14/19 Unknown Urine RBC (Auto) 3.0 /HPF (0.0-6.0) 10/14/19 Unknown U Epithel Cells (Auto) 7.0 /HPF (0-13.0) 10/14/19 Unknown Urine Bacteria (Auto) 1+ /HPF (Negative) 10/14/19 Unknown Urine Mucus Few /HPF 10/14/19 Unknown Active Medications - Current Medications Current Medications: Generic Name Dose Route Start Last Admin Trade Name Freq PRN Reason Stop Dose Admin Acetaminophen 650 mg 10/14/19 18:58 10/14/19 22:32 Tylenol PO 650 mg Q4H PRN Administration Pain MILD(1-3)/Fever >100.5/HORN Albuterol 2.5 mg 10/14/19 22:00 10/20/19 03:38 Proventil IH 2.5 mg Q4HRT PRN Administration Shortness Of Breath Albuterol/Ipratropium 1 ampul 10/20/19 08:00 10/21/19 07:55 Duoneb *Not For Prn Use* IH 1 ampul Q6HRT ARIANA Administration Budesonide 0.5 mg 10/20/19 13:30 10/21/19 07:55 Pulmicort IH 0.5 mg Q12HRT ARIANA Administration Furosemide 20 mg 10/15/19 06:00 10/21/19 05:48 Lasix IV 20 mg 0600,1800 ARIANA Administration Guaifenesin 10 ml 10/16/19 00:03 10/19/19 22:08 Guaifenesin Dm Syrup PO 10 ml Q6H PRN Administration Cough Heparin Sodium (Porcine) 5,000 unit 10/14/19 22:00 10/21/19 11:42 Heparin SUB-Q 5,000 unit Q12HR ARIANA Administration Insulin Human Isoph/Insulin Regular 20 unit 10/17/19 17:40 10/21/19 08:25 Humulin 70/30 SUB-Q 20 unit BIDDIAB ARIANA Administration Insulin Human Lispro 0 unit 10/14/19 23:15 10/21/19 08:24 Humalog SUB-Q 6 unit ACHS ARIANA Administration Protocol Lisinopril 5 mg 10/14/19 22:00 10/21/19 11:42 Zestril PO 5 mg BID ARIANA Administration Metoprolol Tartrate 12.5 mg 10/14/19 22:00 10/21/19 08:25 Metoprolol PO 12.5 mg BID@0800,1700 ARIANA Administration Nifedipine 30 mg 10/15/19 06:00 10/21/19 05:48 Procardia Xl PO 30 mg QDAY@0600 ARIANA Administration Ondansetron HCl 4 mg 10/14/19 18:58 Zofran IV Q8H PRN Nausea And Vomiting Prednisone 60 mg 10/19/19 10:00 10/21/19 11:41 Deltasone PO 60 mg QDAY ARIANA Administration Sodium Chloride 10 ml 10/14/19 22:00 10/20/19 22:27 Sodium Chloride Flush Syringe 10 Ml IV 10 ml BID ARIANA Administration Sodium Chloride 10 ml 10/14/19 18:58 10/16/19 05:55 Sodium Chloride Flush Syringe 10 Ml IV 10 ml PRN PRN Administration LINE FLUSH Nutrition/Malnutrition Assess - Dietary Evaluation Nutrition/Malnutrition Findings: Nutrition Notes Start: 10/20/19 11:21 Freq: Status: Active Protocol: Document 10/20/19 11:21 CT (Rec: 10/20/19 11:30 CT [id number]) Co-Sign 10/20/19 11:21 LP Nutrition Notes Need for Assessment generated from: LOS,Education Initial or Follow up Assessment Current Diagnosis Diabetes,Hypertension,Heart Failure Other Pertinent Diagnosis Hypoventilation syndrome, Lymphedema, [place], morbid obesity Current Diet Cardiac/consistent CHO Labs/Tests POC Glu 317 A1c 11.3 Pertinent Medications Lasix Humalog Humulin Height 5 ft 4 in Weight 141.5 kg Usual Body Weight 132.903 kg [place] Body Weight (kg) 54.54 BMI 53.5 Intake Prior to Admission Good Weight change and time frame wt gain noted likely d/t fluid accumulation Weight Status Morbidly Obese Subjective/Other Information LOS screen and diet education on heart healthy carbohydrate counting. Pt stated that her UBW 293 lbs and that she has not noticed any wt loss. 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 Pt has not had any previous diet education and accepted education and the handout. Per physical assessment pt has pitting +2 edema. Per ADLs pt was eating 50% of meals. Percent of energy/protein needs met: 92% energy / 72% protein Burn Absent Trauma Absent GI Symptoms None Current % PO Good (75-100%) Minimum of two criteria No Fluid Accumulation Moderate to Severe (severe) #1 Nutrition Diagnosis Food and nutrition-related knowledge deficit Etiology no previous knowledge on cardiac/consistent CHO diet As Evidenced by Signs and Symptoms pt acceptance of education and handout Is patient on ventilator? No Is Patient Ambulatory and/or Out of Bed Yes REE-([facility]-ambulatory/OOB) [ 2587.000 [id number]] Kcal/Kg value to use for calculation 10 Approximate Energy Requirements Using 1415 kcal/Kg Calculation Used for Recommendations Kcal/kg Additional Notes Protein needs: 78-98 g/kg/day (0.8-1 g/kg/day AdBW 98 kg) Fluid needs: 1 ml/kcal or per MD Nutrition Intervention Change Diet Order: Continue cardiac/consistent CHO Teaching Recipient Patient Learning Readiness Good Teaching Methods Discussion,Handout Education Handouts Provided heart healthy consistent CHO Barriers to Learning No Barriers RD phone number provided Yes Patient aware of follow up options Yes Goal #1 Meet >75% of energy and protein needs Anticipated Discharge Needs: cardiac/consistent cho Follow-Up By: 10/27/19 Additional Comments Follow up for stable PO intakes
[2019-10-22] MEDS: IPRATROPIUM/ALBUTEROL SULFATE 3 ML AMPUL.NEB IH SCH ×4 (02:47→22:14)
[2019-10-22] MEDS: FUROSEMIDE 20 MG/2 ML INJ IV SCH ×2 (05:10→18:19)
[2019-10-22] MEDS: NIFEdipine XL 30 MG TAB PO SCH (05:10)
[2019-10-22] MEDS: BUDESONIDE 0.5 MG/2 ML NEBU IH SCH ×2 (08:59→22:14)
[2019-10-22] MEDS: INSULIN LISPRO 100 UNIT/ML SUB-Q SCH ×4 (09:05→22:00)
[2019-10-22] MEDS: predniSONE 20 MG TAB PO SCH (09:14)
[2019-10-22] MEDS: METOPROLOL TARTRATE 25 MG TAB PO SCH ×2 (09:14→18:18)
[2019-10-22] MEDS: LISINOPRIL 5 MG TAB PO SCH ×2 (09:14→21:23)
[2019-10-22] MEDS: INSULIN NPH/REGULAR 70/30 INJ SUB-Q SCH ×2 (09:14→18:24)
[2019-10-22] MEDS: HEPARIN 5,000 UNIT/1 ML VIAL SUB-Q SCH ×2 (09:15→21:22)
[2019-10-22 09:24] LABS: Hematocrit 40.1 % (30.3-42.9); Hemoglobin 13.7 gm/dl (10.1-14.3); Mean Corpuscular HGB Conc 34 % (30-34); Mean Corpuscular Volume 80 fl (79-97); Platelet Count 284 K/mm3 (140-440); Red Blood Count 5.04 M/mm3 (3.65-5.03); Red Cell Distribution Width 14.9 % (13.2-15.2)
--- NOTE | 2019-10-22 09:45 | Progress Note ---
Assessment and Plan Acute heart failure with a preserved ejection fraction EF 55-60% by echo this admission abnormal thallium stress test that showed a large mostly fixed lateral wall defect of prior myocardial infarction. COPD exacerbation Essential hypertension Type 2 diabetes mellitus Chronic lymphedema Obesity Tobacco abuse Noncompliant with medications and outpatient followup Recommendations: Pulmonary for management of shortness of breath, coughs with active wheezing. We will plan for a cardiac catheterization on Wednesday. Subjective Date of service: 10/22/19 Principal diagnosis: Heart Failure Interval history: Doing well Patient is able to lie flat Breathing improved on exam although she continues to have wheezing Objective Vital Signs Temp Pulse Pulse Resp Resp BP BP 10/22/19 09:02 10/22/19 08:00 86 20 10/22/19 04:24 97.7 F 91 H 20 158/72 10/22/19 02:48 82 20 10/21/19 23:55 98.8 F 10/21/19 23:54 94 H 20 149/67 10/21/19 22:00 78 20 10/21/19 20:29 10/21/19 20:27 85 20 10/21/19 19:55 99.0 F 10/21/19 19:53 85 20 148/66 10/21/19 14:03 76 20 10/21/19 10:00 88 28 H Pulse Ox 10/22/19 09:02 95 10/22/19 08:00 10/22/19 04:24 95 10/22/19 02:48 10/21/19 23:55 10/21/19 23:54 95 10/21/19 22:00 10/21/19 20:29 97 10/21/19 20:27 10/21/19 19:55 10/21/19 19:53 97 10/21/19 14:03 10/21/19 10:00 94 - Physical Examination General: No Apparent Distress HEENT: Positive: PERRL Neck: Positive: trachea midline Cardiac: Positive: Reg Rate and Rhythm Lungs: Positive: Wheezes Neuro: Positive: Grossly Intact Abdomen: Positive: Unremarkable Extremities: Present: +1 Edema, Other (Chronic lymphedema) - Labs and Meds CBC 10/22/19 Range/Units 08:30 WBC 8.2 (4.5-11.0) K/mm3 RBC 5.04 H (3.65-5.03) M/mm3 Hgb 13.7 (10.1-14.3) gm/dl Hct 40.1 (30.3-42.9) % Plt Count 284 (140-440) K/mm3
[2019-10-22 09:54] LABS: BUN/Creatinine Ratio 36; Blood Urea Nitrogen 18 mg/dL (7-17); Calcium 9.1 mg/dL (8.4-10.2); Hemolysis Index 3
--- NOTE | 2019-10-22 11:18 | Progress Note ---
Assessment and Plan Assessment and plan: Patient is a 54 yo woman with a history of MO, Obesity Hypoventilation Syndrome, HTN, DM, Lymphedema, Asthma presents to ED for evaluation. Pt states that she has experienced shortness of breath over the past 4 days with worsening symptoms over the past 2 days. Pt acknowledges decreased exercise tolerance, Orthopnea/PND, dypsnea at rest, dypsnea on exertion, leg edema. Noted to be in acute on chronic hypoxic respiratory failure requiring BiPAP, now weaned off. Acute diastolic congestive heart failure, managed appropriately. Evaluated by cardiology, medications optimized, stress test ordered for 10/17/19 but unable to complete due to bronchospasm. Cardiology has requested Pulm consultation and change the stress test medication. Uncontrolled blood sugars secondary to steroid use, increased Insulin. Wednesday night, patient had 26 beat run of NSVT and acute bronchospasm unable to do stress test on Wednesday, started IV steroid, which helped, dobutamine stess test is abnormal on Wednesday and LHC planned for per Cardiology. Patient went down for Cardiac catherization on but was unable to lay flat due to persistent coughing and sob. She was asking for breathing treatment but none was given, so Cardiac catherization re- scheduled until Wednesday per [facility]. Pulmonology is following for lung disease, suggest wean down steroids. --Acute hypoxic respiratory failure secondary to obesity hypoventilation syndrome/MARIA DE JESUS/acute diastolic dysfunction Continue current management trying to wean off o2, she dropped to 88% at rest --Acute Asthma exacerbation treated with IV steroids consult Pulmonology, input noted --Obesity hypoventilation syndrome Current Visit: Yes Status: Acute oxygen, nebs, titrate O2 sats to more than 90% NIPPV as clinically indicated, pulse oximetry Titrate O2 sats to more than 90% Outpatient sleep study to rule out obstructive sleep apnea CPAP BiPAP at night and as needed --Acute diastolic CHF (congestive heart failure) Current Visit: Yes Status: Acute Heart failure medications, input output monitoring, follow echocardiogram Cardiology following, low-sodium diet, fluid restriction, --Type II diabetes mellitus; uncontrolled Current Visit: Yes Status: Acute Accu check, sliding scale coverage , ADA diet Insulin as needed , oral hypoglycemics Add long-acting insulin if needed ,hypoglycemia protocol --HTN (hypertension); moderate control Current Visit: Yes Status: Acute Continue current antihypertensives, PRN medications --Morbid obesity; BMI >50 Dietary modification exercise as tolerated and weight reduction Patient may benefit from evaluation by bariatric team outpatient For weight reduction as outpatient when medically stable --DVT prophylaxis Current Visit: Yes Status: Acute SCD to BLE while in bed, prophylactic lovenox. Closely monitor the patient and adjust management as needed Plan of care reviewed with the patient and her nurse Disposition; continue inpatient care, [facility] once respiratory status improves, hopefully [facility] on Wednesday History Interval history: Patient was seen and examined. Follow-up on current diagnosis of respiratory failure. No overnight events reported to me. Patient denies any chest pain, shortness breath, nausea/vomiting or severe headaches. Imaging, nursing note, chart, labs and old chart reviewed. Discussed with patient. Hospitalist Physical - Physical exam Narrative exam: Gen: WDWN, NAD, Awake, Alert, Orientated HEENT: NCAT, EOMI, PERRL, OP Clear Neck: supple, no adenopathy, no thyromegaly, no JVD CVS/Heart: RRR, normal S1S2, pulses present bilaterally Chest/Lungs:DIMINISHED BS BILATERAL WITH WHEEZING, Symmetrical chest expansion, good air entry bilaterally GI/Abdomen: soft, NTND, good bowel sounds, no guarding or rebound /Bladder: no suprapubic tenderness, no CVA or paraspinal tenderness Extermity/Skin: no c/c/e, no obvious rash MSK: FROM x 4 Neuro: CN 2-12 grossly intact, no new focal deficits Psych: calm - Constitutional Vitals: Temp Pulse Resp BP Pulse Ox 97.7 F 86 20 158/72 95 10/22/19 04:24 10/22/19 08:00 10/22/19 08:00 10/22/19 04:24 10/22/19 09:02 General appearance: Present: obese (Morbidly obese). Absent: mild distress, well-nourished Results - Labs CBC & Chem 7: 10/22/19 08:30 10/22/19 08:30 Labs: Laboratory Last Values WBC 8.2 K/mm3 (4.5-11.0) 10/22/19 08:30 RBC 5.04 M/mm3 (3.65-5.03) H 10/22/19 08:30 Hgb 13.7 gm/dl (10.1-14.3) 10/22/19 08:30 Hct 40.1 % (30.3-42.9) 10/22/19 08:30 MCV 80 fl (79-97) 10/22/19 08:30 MCH 27 pg (28-32) L 10/22/19 08:30 MCHC 34 % (30-34) 10/22/19 08:30 RDW 14.9 % (13.2-15.2) 10/22/19 08:30 Plt Count 284 K/mm3 (140-440) 10/22/19 08:30 Lymph % (Auto) 21.7 % (13.4-35.0) 10/14/19 16:02 [place] % (Auto) 9.4 % (0.0-7.3) H 10/14/19 16:02 Eos % (Auto) 1.0 % (0.0-4.3) 10/14/19 16:02 Baso % (Auto) 1.0 % (0.0-1.8) 10/14/19 16:02 Lymph # 1.5 K/mm3 (1.2-5.4) 10/14/19 16:02 [place] # 0.6 K/mm3 (0.0-0.8) 10/14/19 16:02 Eos # 0.1 K/mm3 (0.0-0.4) 10/14/19 16:02 Baso # 0.1 K/mm3 (0.0-0.1) 10/14/19 16:02 Seg Neutrophils % 66.9 % (40.0-70.0) 10/14/19 16:02 Seg Neutrophils # 4.5 K/mm3 (1.8-7.7) 10/14/19 16:02 PT 12.6 Sec. (12.2-14.9) 10/19/19 05:36 INR 0.93 (0.87-1.13) 10/19/19 05:36 Sodium 138 mmol/L (137-145) 10/22/19 08:30 Potassium 3.3 mmol/L (3.6-5.0) L 10/22/19 08:30 Chloride 86.5 mmol/L (98-107) L 10/22/19 08:30 Carbon Dioxide 37 mmol/L (22-30) H 10/22/19 08:30 Anion Gap 18 mmol/L 10/22/19 08:30 BUN 18 mg/dL (7-17) H 10/22/19 08:30 Creatinine 0.5 mg/dL (0.7-1.2) L 10/22/19 08:30 Estimated GFR > 60 ml/min 10/22/19 08:30 BUN/Creatinine Ratio 36 % 10/22/19 08:30 Glucose 292 mg/dL (65-100) H 10/22/19 08:30 POC Glucose 272 (70-105) H 10/22/19 08:14 Hemoglobin A1c 11.7 % (4-6) H 10/16/19 07:15 Calcium 9.1 mg/dL (8.4-10.2) 10/22/19 08:30 Magnesium 1.70 mg/dL (1.7-2.3) 10/14/19 19:11 Total Bilirubin 0.50 mg/dL (0.1-1.2) 10/14/19 16:02 AST 14 units/L (5-40) 10/14/19 16:02 ALT 11 units/L (7-56) 10/14/19 16:02 Alkaline Phosphatase 114 units/L (35-129) 10/14/19 16:02 Troponin T < 0.010 ng/mL (0.00-0.029) 10/14/19 19:11 NT-Pro-B Natriuret Pep 503.0 pg/mL (0-900) 10/14/19 16:02 Total Protein 7.5 g/dL (6.3-8.2) 10/14/19 16:02 Albumin 3.4 g/dL (3.9-5) L 10/14/19 16:02 Albumin/Globulin Ratio 0.8 % 10/14/19 16:02 Triglycerides 90 mg/dL (2-149) 10/16/19 07:15 Cholesterol 189 mg/dL (50-199) 10/16/19 07:15 LDL Cholesterol Direct 133 mg/dL (50-130) H 10/16/19 07:15 HDL Cholesterol 50 mg/dL (40-59) 10/16/19 07:15 Cholesterol/HDL Ratio 3.78 % 10/16/19 07:15 TSH 2.720 mlU/mL (0.270-4.200) 10/14/19 19:11 Free T4 1.11 ng/dL (0.76-1.46) 10/14/19 19:11 Urine Color Yellow (Yellow) 10/14/19 Unknown Urine Turbidity Slightly-cloudy (Clear) 10/14/19 Unknown Urine pH 5.0 (5.0-7.0) 10/14/19 Unknown Ur Specific [place] 1.029 (1.003-1.030) 10/14/19 Unknown Urine Protein 30 mg/dl mg/dL (Negative) 10/14/19 Unknown Urine Glucose (UA) >=500 mg/dL (Negative) 10/14/19 Unknown Urine Ketones Neg mg/dL (Negative) 10/14/19 Unknown Urine Blood Mod (Negative) 10/14/19 Unknown Urine Nitrite Neg (Negative) 10/14/19 Unknown Urine Bilirubin Neg (Negative) 10/14/19 Unknown Urine Urobilinogen < 2.0 mg/dL (<2.0) 10/14/19 Unknown Ur Leukocyte Esterase Neg (Negative) 10/14/19 Unknown Urine WBC (Auto) 1.0 /HPF (0.0-6.0) 10/14/19 Unknown Urine RBC (Auto) 3.0 /HPF (0.0-6.0) 10/14/19 Unknown U Epithel Cells (Auto) 7.0 /HPF (0-13.0) 10/14/19 Unknown Urine Bacteria (Auto) 1+ /HPF (Negative) 10/14/19 Unknown Urine Mucus Few /HPF 10/14/19 Unknown Active Medications - Current Medications Current Medications: Generic Name Dose Route Start Last Admin Trade Name Freq PRN Reason Stop Dose Admin Acetaminophen 650 mg 10/14/19 18:58 10/14/19 22:32 Tylenol PO 650 mg Q4H PRN Administration Pain MILD(1-3)/Fever >100.5/HORN Albuterol 2.5 mg 10/14/19 22:00 10/20/19 03:38 Proventil IH 2.5 mg Q4HRT PRN Administration Shortness Of Breath Albuterol/Ipratropium 1 ampul 10/20/19 08:00 10/22/19 09:00 Duoneb *Not For Prn Use* IH 1 ampul Q6HRT ARIANA Administration Aspirin 81 mg 10/22/19 10:00 Baby Aspirin PO QDAY ARIANA Budesonide 0.5 mg 10/20/19 13:30 10/22/19 08:59 Pulmicort IH 0.5 mg Q12HRT ARIANA Administration Furosemide 20 mg 10/15/19 06:00 10/22/19 05:10 Lasix IV 20 mg 0600,1800 ARIANA Administration Guaifenesin 10 ml 10/16/19 00:03 10/19/19 22:08 Guaifenesin Dm Syrup PO 10 ml Q6H PRN Administration Cough Heparin Sodium (Porcine) 5,000 unit 10/14/19 22:00 10/22/19 09:15 Heparin SUB-Q 5,000 unit Q12HR ARIANA Administration Insulin Human Isoph/Insulin Regular 20 unit 10/17/19 17:40 10/22/19 09:14 Humulin 70/30 SUB-Q 20 unit BIDDIAB ARIANA Administration Insulin Human Lispro 0 unit 10/14/19 23:15 10/22/19 09:05 Humalog SUB-Q 6 unit ACHS ARIANA Administration Protocol Lisinopril 5 mg 10/14/19 22:00 10/22/19 09:14 Zestril PO 5 mg BID ARIANA Administration Metoprolol Tartrate 12.5 mg 10/14/19 22:00 10/22/19 09:14 Metoprolol PO 12.5 mg BID@0800,1700 ARIANA Administration Nifedipine 30 mg 10/15/19 06:00 10/22/19 05:10 Procardia Xl PO 30 mg QDAY@0600 ARIANA Administration Ondansetron HCl 4 mg 10/14/19 18:58 Zofran IV Q8H PRN Nausea And Vomiting Prednisone 60 mg 10/19/19 10:00 10/22/19 09:14 Deltasone PO 60 mg QDAY ARIANA Administration Sodium Chloride 10 ml 10/14/19 22:00 10/22/19 09:06 Sodium Chloride Flush Syringe 10 Ml IV 10 ml BID ARIANA Administration Sodium Chloride 10 ml 10/14/19 18:58 10/16/19 05:55 Sodium Chloride Flush Syringe 10 Ml IV 10 ml PRN PRN Administration LINE FLUSH Nutrition/Malnutrition Assess - Dietary Evaluation Nutrition/Malnutrition Findings: Nutrition Notes Start: 10/20/19 11:21 Freq: Status: Active Protocol: Document 10/20/19 11:21 CT (Rec: 10/20/19 11:30 CT [id number]) Co-Sign 10/20/19 11:21 LP Nutrition Notes Need for Assessment generated from: LOS,Education Initial or Follow up Assessment Current Diagnosis Diabetes,Hypertension,Heart Failure Other Pertinent Diagnosis Hypoventilation syndrome, Lymphedema, [place], morbid obesity Current Diet Cardiac/consistent CHO Labs/Tests POC Glu 317 A1c 11.3 Pertinent Medications Lasix Humalog Humulin Height 5 ft 4 in Weight 141.5 kg Usual Body Weight 132.903 kg [place] Body Weight (kg) 54.54 BMI 53.5 Intake Prior to Admission Good Weight change and time frame wt gain noted likely d/t fluid accumulation Weight Status Morbidly Obese Subjective/Other Information LOS screen and diet education on heart healthy carbohydrate counting. Pt stated that her UBW 293 lbs and that she has not noticed any wt loss. Pt stated eating well [employer] and consumed 100% of breakfast this am. Pt has not had any previous diet education and accepted education and the handout. Per physical assessment pt has pitting +2 edema. Per ADLs pt was eating 50% of meals. Percent of energy/protein needs met: 92% energy / 72% protein Burn Absent Trauma Absent GI Symptoms None Current % PO Good (75-100%) Minimum of two criteria No Fluid Accumulation Moderate to Severe (severe) #1 Nutrition Diagnosis Food and nutrition-related knowledge deficit Etiology no previous knowledge on cardiac/consistent CHO diet As Evidenced by Signs and Symptoms pt acceptance of education and handout Is patient on ventilator? No Is Patient Ambulatory and/or Out of Bed Yes [facility] [ 2587.000 NUTR.[id number]] Kcal/Kg value to use for calculation 10 Approximate Energy Requirements Using 1415 kcal/Kg Calculation Used for Recommendations Kcal/kg Additional Notes Protein needs: 78-98 g/kg/day (0.8-1 g/kg/day AdBW 98 kg) Fluid needs: 1 ml/kcal or per MD Nutrition Intervention Change Diet Order: Continue cardiac/consistent CHO Teaching Recipient Patient Learning Readiness Good Teaching Methods Discussion,Handout Education Handouts Provided heart healthy consistent CHO Barriers to Learning No Barriers RD phone number provided Yes Patient aware of follow up options Yes Goal #1 Meet >75% of energy and protein needs Anticipated Discharge Needs: cardiac/consistent cho Follow-Up By: 12/27/19 Additional Comments Follow up for stable PO intakes
[2019-10-22] MEDS: ASPIRIN 81 MG TAB CHEW PO SCH (12:49)
[2019-10-22] MEDS ORDERED: POTASSIUM CHLORIDE ER 20 MEQ TAB PO ONE (17:03)
[2019-10-22] MEDS: guaiFENesin DM 200/20 MG ORAL LIQD 10 ML PO PRN (18:24)
[2019-10-23 01:08] LABS: Basophils % (Auto) 0.5 % (0.0-1.8); Lymphocytes # (Auto) 1.9 K/mm3 (1.2-5.4); Mean Corpuscular HGB Conc 34 % (30-34); Mean Corpuscular Volume 80 fl (79-97); Monocytes % (Auto) 11.7 % (0.0-7.3); Platelet Count 301 K/mm3 (140-440); Red Cell Distribution Width 14.9 % (13.2-15.2)
[2019-10-23 01:18] LABS: INR 0.92 (0.87-1.13)
[2019-10-23] MEDS: IPRATROPIUM/ALBUTEROL SULFATE 3 ML AMPUL.NEB IH SCH ×5 (04:17→22:18)
[2019-10-23] MEDS: NIFEdipine XL 30 MG TAB PO SCH (06:21)
[2019-10-23] MEDS: FUROSEMIDE 20 MG/2 ML INJ IV SCH (06:21)
[2019-10-23 06:54] LABS: Hematocrit 41.2 % (30.3-42.9); Mean Corpuscular HGB Conc 34 % (30-34); Mean Corpuscular Volume 79 fl (79-97); Platelet Count 304 K/mm3 (140-440); Red Blood Count 5.22 M/mm3 (3.65-5.03); Red Cell Distribution Width 14.8 % (13.2-15.2)
[2019-10-23 07:03] LABS: INR 0.93 (0.87-1.13)
[2019-10-23 07:07] LABS: BUN/Creatinine Ratio 45; Blood Urea Nitrogen 18 mg/dL (7-17); Calcium 9.2 mg/dL (8.4-10.2); Hemolysis Index 13
[2019-10-23] MEDS: INSULIN LISPRO 100 UNIT/ML SUB-Q SCH ×4 (07:30→23:28)
[2019-10-23] MEDS: ASPIRIN 81 MG TAB CHEW PO SCH ×2 (08:16→11:44)
[2019-10-23] MEDS ORDERED: ASPIRIN 81 MG TAB CHEW ONE (08:18)
[2019-10-23] MEDS ORDERED: IPRATROPIUM/ALBUTEROL SULFATE 3 ML AMPUL.NEB IH ONE (08:21)
[2019-10-23] MEDS ORDERED: HEPARIN 10,000 UNITS/10 ML VIAL ONE (08:23)
[2019-10-23] MEDS ORDERED: HEPARIN/NS 5000 UNIT/500ML 1,000 ML IR ONE (08:23)
[2019-10-23] MEDS ORDERED: LIDOCAINE (2%) 20 MG/1 ML VIAL 20 ML MDV INFILTRATI ONE ×2 (08:23→09:12)
[2019-10-23] MEDS ORDERED: NITROGLYCERIN SYRINGE 0 ML ONE (08:24)
[2019-10-23] MEDS ORDERED: MIDAZOLAM 2 MG/2 ML INJ ONE (08:25)
[2019-10-23] MEDS ORDERED: fentaNYL 100 MCG/2 ML INJ ONE (08:25)
[2019-10-23] MEDS: BUDESONIDE 0.5 MG/2 ML NEBU IH SCH ×2 (08:30→22:18)
[2019-10-23] MEDS ORDERED: SODIUM CHLORIDE 0.9% 250ML 250 ML ONE (08:42)
[2019-10-23] MEDS ORDERED: hydrALAZINE 20 MG/1 ML INJ ONE (09:42)
[2019-10-23] MEDS ORDERED: hydrALAZINE 20 MG/1 ML INJ IV PRN (10:04)
--- NOTE | 2019-10-23 10:09 | Progress Note ---
Assessment and Plan Acute heart failure with a preserved ejection fraction EF 55-60% by echo this admission abnormal thallium stress test that showed a large mostly fixed lateral wall defect of prior myocardial infarction. Cath revealing severely elevated filling pressures with a PWP 38 mm Hg, LVEDP 47 mm Hg, PAP 80/36/56, RAP 31 mm Hg Coronary artery disease with 80% mid RCA and 50-60% mid LAD stenosis COPD exacerbation Essential hypertension Type 2 diabetes mellitus Chronic lymphedema Obesity Tobacco abuse Noncompliant with medications and outpatient followup Recommendations: Start IV lasix drip at 10 mg per hour for more effective and aggressive diuresis. Monitor renal function. Start high intensity statin therapy Elective PCI to mid RCA and IFR to mid LAD once filling pressures improve Patient is not ready for discharge cardiac lambert Subjective Date of service: 10/23/19 Principal diagnosis: Heart Failure Interval history: Patient underwent a LHC this morning without complications Objective Vital Signs Temp Pulse Pulse Pulse Resp Resp BP 10/23/19 03:14 98.9 F 94 H 20 168/74 10/22/19 22:54 98.3 F 96 H 18 140/60 10/22/19 22:16 10/22/19 22:15 99 H 20 10/22/19 22:00 105 H 105 H 18 10/22/19 21:23 81 181/82 10/22/19 19:58 98.5 F 81 18 181/82 10/22/19 16:11 98.1 F 81 18 149/74 Pulse Ox 10/23/19 03:14 93 10/22/19 22:54 92 10/22/19 22:16 94 10/22/19 22:15 10/22/19 22:00 10/22/19 21:23 10/22/19 19:58 93 10/22/19 16:11 82 L - Physical Examination General: No Apparent Distress HEENT: Positive: PERRL Neck: Positive: trachea midline Cardiac: Positive: Reg Rate and Rhythm Lungs: Positive: Wheezes Neuro: Positive: Grossly Intact Abdomen: Positive: Unremarkable Extremities: Present: +1 Edema, Other (Chronic lymphedema) - Labs and Meds Coagulation 10/23/19 10/23/19 Range/Units 00:27 06:27 PT 12.4 12.6 (12.2-14.9) Sec. INR 0.92 0.93 (0.87-1.13) CBC 10/23/19 10/23/19 Range/Units 00:27 06:27 WBC 8.9 8.4 (4.5-11.0) K/mm3 RBC 5.10 H 5.22 H (3.65-5.03) M/mm3 Hgb 14.0 14.0 (10.1-14.3) gm/dl Hct 41.0 41.2 (30.3-42.9) % Plt Count 301 304 (140-440) K/mm3 Lymph # 1.9 (1.2-5.4) K/mm3 [place] # 1.0 H (0.0-0.8) K/mm3 Eos # 0.0 (0.0-0.4) K/mm3 Baso # 0.0 (0.0-0.1) K/mm3 Comprehensive Metabolic Panel 10/23/19 Range/Units 06:27 Sodium 137 (137-145) mmol/L Potassium 3.7 (3.6-5.0) mmol/L Chloride 89.2 L (98-107) mmol/L Carbon Dioxide 34 H (22-30) mmol/L BUN 18 H (7-17) mg/dL Creatinine 0.4 L (0.7-1.2) mg/dL Glucose 268 H (65-100) mg/dL Calcium 9.2 (8.4-10.2) mg/dL
[2019-10-23 10:34] LABS: Alanine Aminotransferase 16 units/L (7-56); Albumin 3.4 g/dL (3.9-5)
[2019-10-23 10:37] LABS: Bilirubin,Direct < 0.2 mg/dL (0-0.2)
--- NOTE | 2019-10-23 10:38 | Cardiac Catherization Report ---
LEFT AND RIGHT HEART CATH INDICATION FOR PROCEDURE: Congestive heart failure. ORDERING PHYSICIAN: Sapphire Ramos MD PROCEDURES PERFORMED: Selective left and right coronary angiography, left ventriculography, right heart catheterization with hemodynamic measurement and oxygen saturation run. DESCRIPTION OF PROCEDURE: After obtaining the consent, the patient was draped using sterile technique. A 2% lidocaine was injected into the right groin. A 5-[place] vascular sheath was inserted into the right femoral artery using micropuncture technique, an 8-[place] vascular sheath was inserted into the right femoral vein using micropuncture technique. A 5-[place] JL4 catheter was used to selectively engage left coronary artery. A 5-[place] JR4 catheter was used to selectively engage the right coronary artery. A 5-[place] JR4 catheter was used to hand inject a left ventriculogram. A 7-[place]ian [place]-Prince catheter was used to measure right-sided hemodynamics and perform an oxygen saturation run. No complications occurred during the procedure. Hemostasis was achieved at the end of the procedure using manual pressure. SPECIMEN REMOVED: None. ESTIMATED BLOOD LOSS: Minimal. TOTAL SEDATION ADMINISTERED: 0.5 mg of IV Versed and 25 mcg of IV fentanyl. PHYSICIAN-PATIENT [id number] SEDATION START TIME: 9:23 a.m. PHYSICIAN-PATIENT [id number] SEDATION STOP TIME: 9:43 a.m. Total sedation time is 20 minutes. FINDINGS: HEMODYNAMICS: 1. Mean pulmonary capillary wedge pressure was 38 mmHg. 2. Pulmonary artery systolic pressure 80 mmHg, diastolic pressure 36 mmHg and mean pulmonary artery pressure 56 mmHg. 3. The right ventricular systolic pressure 82 mmHg, right ventricular end-diastolic pressure 34 mmHg. 4. Mean right atrial pressure of 31 mmHg. 5. Aortic pressure 196/84. LV systolic pressure 186 mmHg, LV end diastolic pressure 47 mmHg. 6. [place] cardiac output 8.64 L per minute. [place] cardiac index 3.68 L per minute per meter square. 7. PA saturation 71%, RV saturation 71%, RA saturation 72%, AO saturation 91%. CARDIAC STRUCTURES: The left ventricle is normal in size and systolic function, left ventricular ejection fraction is estimated at 60%. CORONARY ANATOMY: 1. This is a right dominant circulation. 2. The left main is angiographically normal. 3. The left anterior descending artery has a focal borderline 50-60% lesion noted in the mid segment. 4. The left circumflex artery has minimal luminal irregularities. 5. The right coronary artery has evidence of a diffuse mid 80% stenosis, otherwise minimal luminal irregularities. IMPRESSION: 1. Severely elevated right and left-sided filling pressures with a mean pulmonary capillary wedge pressure of 38 mmHg, LVEDP of 47 mmHg and mean pulmonary artery pressure of 56 mmHg. 2. Preserved cardiac output. 3. No evidence of an intracardiac shunt. 4. Significant 1-vessel obstructive coronary artery disease with an 80% lesion in the mid right coronary artery. 5. Borderline disease noted in the mid LAD with a 50-60% focal stenosis. 6. Normal left ventricular ejection fraction. RECOMMENDATIONS: 1. The patient will be recommended for more effective and aggressive diuresis. 2. Elective PCI to the right coronary artery as well as IFR to the mid LAD is warranted once filling pressures are better controlled. [facility]# [id number] TAMRA/SVETLANA
[2019-10-23] MEDS: predniSONE 20 MG TAB PO SCH (11:28)
[2019-10-23] MEDS: ACETAMINOPHEN 325 MG TAB PO PRN (11:28)
[2019-10-23] MEDS: INSULIN NPH/REGULAR 70/30 INJ SUB-Q SCH ×2 (11:32→16:30)
[2019-10-23] MEDS: METOPROLOL TARTRATE 25 MG TAB PO SCH ×2 (11:37→16:31)
[2019-10-23] MEDS: HEPARIN 5,000 UNIT/1 ML VIAL SUB-Q SCH ×2 (11:39→22:51)
[2019-10-23] MEDS: FUROSEMIDE 100 MG in SODIUM CHLORIDE 0.9% 90 ML IV SCH ×2 (12:00→22:51)
--- NOTE | 2019-10-23 13:02 | Progress Note ---
Assessment and Plan Assessment and plan: Patient is a 54 yo woman with a history of MO, Obesity Hypoventilation Syndrome, HTN, DM, Lymphedema, Asthma presents to ED for evaluation. Pt states that she has experienced shortness of breath over the past 4 days with worsening symptoms over the past 2 days. Pt acknowledges decreased exercise tolerance, Orthopnea/PND, dypsnea at rest, dypsnea on exertion, leg edema. Noted to be in acute on chronic hypoxic respiratory failure requiring BiPAP, now weaned off. Acute diastolic congestive heart failure, managed appropriately. Evaluated by cardiology, medications optimized, stress test ordered for 10/17/19 but unable to complete due to bronchospasm. Cardiology has requested Pulm consultation and change the stress test medication. Uncontrolled blood sugars secondary to steroid use, increased Insulin. Wednesday night, patient had 26 beat run of NSVT and acute bronchospasm unable to do stress test on Wednesday, started IV steroid, which helped, dobutamine stess test is abnormal on Wednesday and LHC planned for per Cardiology. Patient went down for Cardiac catherization on but was unable to lay flat due to persistent coughing and sob. She was asking for breathing treatment but none was given, so Cardiac catherization re- scheduled until Wednesday per Ict Development Manager. Pulmonology is following for lung disease, weaning down steroids. Patient had diagnostic LHC today which showed extremely elevated filling pressures with a PWP 38 mm Hg, LVEDP 47 mm Hg, PAP 80/36/56, RAP 31 mm Hg and Coronary artery disease with 80% mid RCA and 50-60% mid LAD stenosis. She will be started on IV lasix drip to improve the severe diastolic heart failure so that Cardiology can go back and stent the RCA. --Acute diastolic CHF (congestive heart failure) Current Visit: Yes Status: Acute Heart failure medications, input output monitoring, follow echocardiogram Cardiology following, low-sodium diet, fluid restriction, --Acute hypoxic respiratory failure secondary to obesity hypoventilation syndrome/MARIA DE JESUS/acute diastolic dysfunction Continue current management trying to wean off o2, she dropped to 88% at rest --Acute Asthma exacerbation treated with IV steroids consult Pulmonology, input noted --Obesity hypoventilation syndrome Current Visit: Yes Status: Acute oxygen, nebs, titrate O2 sats to more than 90% NIPPV as clinically indicated, pulse oximetry Titrate O2 sats to more than 90% Outpatient sleep study to rule out obstructive sleep apnea CPAP BiPAP at night and as needed --Type II diabetes mellitus; uncontrolled Current Visit: Yes Status: Acute Accu check, sliding scale coverage , ADA diet Insulin as needed , oral hypoglycemics Add long-acting insulin if needed ,hypoglycemia protocol --HTN (hypertension); moderate control Current Visit: Yes Status: Acute Continue current antihypertensives, PRN medications --Morbid obesity; BMI >50 Dietary modification exercise as tolerated and weight reduction Patient may benefit from evaluation by bariatric team outpatient For weight reduction as outpatient when medically stable --DVT prophylaxis Current Visit: Yes Status: Acute SCD to BLE while in bed, prophylactic lovenox. Disposition: continue inpatient care, Cardiology starting IV lasix drip History Interval history: Patient was seen and examined. Follow-up on current diagnosis of respiratory failure, CHF. No overnight events reported to me. Patient denies any chest pain, shortness breath, nausea/vomiting or severe headaches. Imaging, nursing note, chart, labs and old chart reviewed. Discussed with patient. Hospitalist Physical - Physical exam Narrative exam: Gen: WDWN, NAD, Awake, Alert, Orientated HEENT: NCAT, EOMI, PERRL, OP Clear Neck: supple, no adenopathy, no thyromegaly, no JVD CVS/Heart: RRR, normal S1S2, pulses present bilaterally Chest/Lungs:DIMINISHED BS BILATERAL WITH WHEEZING, Symmetrical chest expansion, good air entry bilaterally GI/Abdomen: soft, NTND, good bowel sounds, no guarding or rebound /Bladder: no suprapubic tenderness, no CVA or paraspinal tenderness Extermity/Skin: no c/c/e, no obvious rash MSK: FROM x 4 Neuro: CN 2-12 grossly intact, no new focal deficits Psych: calm - Constitutional Vitals: Temp Pulse Resp BP Pulse Ox 98.9 F 72 20 146/95 93 10/23/19 03:14 10/23/19 11:37 10/23/19 03:14 10/23/19 11:37 10/23/19 03:14 General appearance: Present: obese (Morbidly obese). Absent: mild distress, well-nourished Results - Labs CBC & Chem 7: 10/23/19 06:27 10/23/19 06:27 Labs: Laboratory Last Values WBC 8.4 K/mm3 (4.5-11.0) 10/23/19 06:27 RBC 5.22 M/mm3 (3.65-5.03) H 10/23/19 06:27 Hgb 14.0 gm/dl (10.1-14.3) 10/23/19 06:27 Hct 41.2 % (30.3-42.9) 10/23/19 06:27 MCV 79 fl (79-97) 10/23/19 06:27 MCH 27 pg (28-32) L 10/23/19 06: MCHC 34 % (30-34) 10/23/19 06: RDW 14.8 % (13.2-15.2) 10/23/19 06:27 Plt Count 304 K/mm3 (140-440) 10/23/19 06:27 Lymph % (Auto) 21.0 % (13.4-35.0) 10/23/19 00:27 [place] % (Auto) 11.7 % (0.0-7.3) H 10/23/19 00:27 Eos % (Auto) 0.0 % (0.0-4.3) 10/23/19 00:27 Baso % (Auto) 0.5 % (0.0-1.8) 10/23/19 00:27 Lymph # 1.9 K/mm3 (1.2-5.4) 10/23/19 00:27 [place] # 1.0 K/mm3 (0.0-0.8) H 10/23/19 00:27 Eos # 0.0 K/mm3 (0.0-0.4) 10/23/19 00:27 Baso # 0.0 K/mm3 (0.0-0.1) 10/23/19 00:27 Seg Neutrophils % 66.8 % (40.0-70.0) 10/23/19 00:27 Seg Neutrophils # 5.9 K/mm3 (1.8-7.7) 10/23/19 00:27 PT 12.6 Sec. (12.2-14.9) 10/23/19 06:27 INR 0.93 (0.87-1.13) 10/23/19 06:27 Sodium 137 mmol/L (137-145) 10/23/19 06:27 Potassium 3.7 mmol/L (3.6-5.0) 10/23/19 06:27 Chloride 89.2 mmol/L (98-107) L 10/23/19 06:27 Carbon Dioxide 34 mmol/L (22-30) H 10/23/19 06:27 Anion Gap 18 mmol/L 10/23/19 06:27 BUN 18 mg/dL (7-17) H 10/23/19 06:27 Creatinine 0.4 mg/dL (0.7-1.2) L 10/23/19 06:27 Estimated GFR > 60 ml/min 10/23/19 06:27 BUN/Creatinine Ratio 45 % 10/23/19 06:27 Glucose 268 mg/dL (65-100) H 10/23/19 06:27 POC Glucose 311 (70-105) H 10/23/19 11:45 Hemoglobin A1c 11.7 % (4-6) H 10/16/19 07:15 Calcium 9.2 mg/dL (8.4-10.2) 10/23/19 06:27 Magnesium 1.70 mg/dL (1.7-2.3) 10/14/19 19:11 Total Bilirubin 0.30 mg/dL (0.1-1.2) 10/23/19 06:27 Direct Bilirubin < 0.2 mg/dL (0-0.2) 10/23/19 06:27 Indirect Bilirubin 0.1 mg/dL 10/23/19 06:27 AST 12 units/L (5-40) 10/23/19 06:27 ALT 16 units/L (7-56) 10/23/19 06:27 Alkaline Phosphatase 88 units/L (35-129) 10/23/19 06:27 Troponin T < 0.010 ng/mL (0.00-0.029) 10/14/19 19:11 NT-Pro-B Natriuret Pep 503.0 pg/mL (0-900) 10/14/19 16:02 Total Protein 6.8 g/dL (6.3-8.2) 10/23/19 06:27 Albumin 3.4 g/dL (3.9-5) L 10/23/19 06:27 Albumin/Globulin Ratio 1.0 % 10/23/19 06:27 Triglycerides 90 mg/dL (2-149) 10/16/19 07:15 Cholesterol 189 mg/dL (50-199) 10/16/19 07:15 LDL Cholesterol Direct 133 mg/dL (50-130) H 10/16/19 07:15 HDL Cholesterol 50 mg/dL (40-59) 10/16/19 07:15 Cholesterol/HDL Ratio 3.78 % 10/16/19 07:15 TSH 2.720 mlU/mL (0.270-4.200) 10/14/19 19:11 Free T4 1.11 ng/dL (0.76-1.46) 10/14/19 19:11 Urine Color Yellow (Yellow) 10/14/19 Unknown Urine Turbidity Slightly-cloudy (Clear) 10/14/19 Unknown Urine pH 5.0 (5.0-7.0) 10/14/19 Unknown Ur Specific [place] 1.029 (1.003-1.030) 10/14/19 Unknown Urine Protein 30 mg/dl mg/dL (Negative) 10/14/19 Unknown Urine Glucose (UA) >=500 mg/dL (Negative) 10/14/19 Unknown Urine Ketones Neg mg/dL (Negative) 10/14/19 Unknown Urine Blood Mod (Negative) 10/14/19 Unknown Urine Nitrite Neg (Negative) 10/14/19 Unknown Urine Bilirubin Neg (Negative) 10/14/19 Unknown Urine Urobilinogen < 2.0 mg/dL (<2.0) 10/14/19 Unknown Ur Leukocyte Esterase Neg (Negative) 10/14/19 Unknown Urine WBC (Auto) 1.0 /HPF (0.0-6.0) 10/14/19 Unknown Urine RBC (Auto) 3.0 /HPF (0.0-6.0) 10/14/19 Unknown U Epithel Cells (Auto) 7.0 /HPF (0-13.0) 10/14/19 Unknown Urine Bacteria (Auto) 1+ /HPF (Negative) 10/14/19 Unknown Urine Mucus Few /HPF 10/14/19 Unknown Active Medications - Current Medications Current Medications: Generic Name Dose Route Start Last Admin Trade Name Freq PRN Reason Stop Dose Admin Acetaminophen 650 mg 10/14/19 18:58 10/23/19 11:28 Tylenol PO 650 mg Q4H PRN Administration Pain MILD(1-3)/Fever >100.5/HORN Albuterol 2.5 mg 10/14/19 22:00 10/20/19 03:38 Proventil IH 2.5 mg Q4HRT PRN Administration Shortness Of Breath Albuterol/Ipratropium 1 ampul 10/20/19 08:00 10/23/19 09:18 Duoneb *Not For Prn Use* IH 1 ampul Q6HRT ARIANA Administration Aspirin 81 mg 10/22/19 10:00 10/23/19 11:44 Baby Aspirin PO 81 mg QDAY ARIANA Administration Atorvastatin Calcium 40 mg 10/23/19 22:00 Lipitor PO QHS ARIANA Budesonide 0.5 mg 10/20/19 13:30 10/23/19 08:30 Pulmicort IH Not Given Q12HRT ARIANA Guaifenesin 10 ml 10/16/19 00:03 10/22/19 18:24 Guaifenesin Dm Syrup PO 10 ml Q6H PRN Administration Cough Heparin Sodium (Porcine) 5,000 unit 10/14/19 22:00 10/23/19 11:39 Heparin SUB-Q 5,000 unit Q12HR ARIANA Administration Hydralazine HCl 10 mg 10/23/19 10:04 Apresoline IV Q6H PRN Hypertension Furosemide 100 mg/ Sodium 100 mls @ 10 mls/hr 10/23/19 11:00 10/23/19 12:00 Chloride IV 10 mg/hr Q10H ARIANA 10 mls/hr Administration 10 MG/HR Insulin Human Isoph/Insulin Regular 20 unit 10/17/19 17:40 10/23/19 11:32 Humulin 70/30 SUB-Q 20 unit BIDDIAB ARIANA Administration Insulin Human Lispro 0 unit 10/14/19 23:15 10/23/19 12:08 Humalog SUB-Q 8 unit ACHS ARIANA Administration Protocol Metoprolol Tartrate 12.5 mg 10/14/19 22:00 10/23/19 11:37 Metoprolol PO 12.5 mg BID@0800,1700 ARIANA Administration Nifedipine 30 mg 10/15/19 06:00 10/23/19 06:21 Procardia Xl PO Not Given QDAY@0600 [facility] Ondansetron HCl 4 mg 10/14/19 18:58 Zofran IV Q8H PRN Nausea And Vomiting Prednisone 60 mg 10/19/19 10:00 10/23/19 11:28 Deltasone PO 60 mg QDAY ARIANA Administration Sodium Chloride 10 ml 10/14/19 22:00 10/23/19 11:29 Sodium Chloride Flush Syringe 10 Ml IV 10 ml BID ARIANA Administration Sodium Chloride 10 ml 10/14/19 18:58 10/16/19 05:55 Sodium Chloride Flush Syringe 10 Ml IV 10 ml PRN PRN Administration LINE FLUSH Nutrition/Malnutrition Assess - Dietary Evaluation Nutrition/Malnutrition Findings: Nutrition Notes Start: 10/20/19 11:21 Freq: Status: Active Protocol: Document 10/20/19 11:21 CT (Rec: 10/20/19 11:30 CT [id number]) Co-Sign 10/20/19 11:21 LP Nutrition Notes Need for Assessment generated from: LOS,Education Initial or Follow up Assessment Current Diagnosis Diabetes,Hypertension,Heart Failure Other Pertinent Diagnosis Hypoventilation syndrome, Lymphedema, [place], morbid obesity Current Diet Cardiac/consistent CHO Labs/Tests POC Glu 317 A1c 11.3 Pertinent Medications Lasix Humalog Humulin Height 5 ft 4 in Weight 141.5 kg Usual Body Weight 132.903 kg [place] Body Weight (kg) 54.54 BMI 53.5 Intake Prior to Admission Good Weight change and time frame wt gain noted likely d/t fluid accumulation Weight Status Morbidly Obese Subjective/Other Information LOS screen and diet education on heart healthy carbohydrate counting. Pt stated that her UBW 293 lbs and that she has not noticed any wt loss. Pt stated eating well [employer] and consumed 100% of breakfast this am. Pt has not had any previous diet education and accepted education and the handout. Per physical assessment pt has pitting +2 edema. Per ADLs pt was eating 50% of meals. Percent of energy/protein needs met: 92% energy / 72% protein Burn Absent Trauma Absent GI Symptoms None Current % PO Good (75-100%) Minimum of two criteria No Fluid Accumulation Moderate to Severe (severe) #1 Nutrition Diagnosis Food and nutrition-related knowledge deficit Etiology no previous knowledge on cardiac/consistent CHO diet As Evidenced by Signs and Symptoms pt acceptance of education and handout Is patient on ventilator? No Is Patient Ambulatory and/or Out of Bed Yes REE-([place] or-ambulatory/OOB) [ 2587.000 NUTR.[id number]] Kcal/Kg value to use for calculation 10 Approximate Energy Requirements Using 1415 kcal/Kg Calculation Used for Recommendations Kcal/kg Additional Notes Protein needs: 78-98 g/kg/day (0.8-1 g/kg/day AdBW 98 kg) Fluid needs: 1 ml/kcal or per MD Nutrition Intervention Change Diet Order: Continue cardiac/consistent CHO Teaching Recipient Patient Learning Readiness Good Teaching Methods Discussion,Handout Education Handouts Provided heart healthy consistent CHO Barriers to Learning No Barriers RD phone number provided Yes Patient aware of follow up options Yes Goal #1 Meet >75% of energy and protein needs Anticipated Discharge Needs: cardiac/consistent cho Follow-Up By: 10/27/19 Additional Comments Follow up for stable PO intakes
[2019-10-23] MEDS ORDERED: INSULIN REGULAR, HUMAN 100 UNITS/1 ML IV ONE (23:18)
--- NOTE | 2019-10-23 23:41 | Progress Note ---
Assessment and Plan Imp: 1. A/C diastolic CHF 2. Pulm HTN 3. Morbid obesity -> probable MARIA DE JESUS/OHS 4. COPD exac. 5. Nicotine dependence, cigarettes Rec: 1. Diuresis as per cardiology 2. Drop Prednisone to 40mg daily 3. Stop smoking 4. Cont. current nebs 5. Weight loss 6. Outpatient PSG 7. Possible PCI at some point; see cath report Plan of care reviewed w/ patient, she understands/agrees Subjective Date of service: 10/23/19 Principal diagnosis: Heart Failure Interval history: No events. Awake, alert. On RA. Poor historian. SOB better. On Lasix drip. Active Medications Acetaminophen (Tylenol) 650 mg PO Q4H PRN PRN Reason: Pain MILD(1-3)/Fever >100.5/HORN Last Admin: 10/23/19 11:28 Dose: 650 mg Documented by: Albuterol (Proventil) 2.5 mg IH Q4HRT PRN PRN Reason: Shortness Of Breath Last Admin: 10/20/19 03:38 Dose: 2.5 mg Documented by: Albuterol/Ipratropium (Duoneb *Not For Prn Use*) 1 ampul IH Q6HRT [facility] Last Admin: 10/23/19 22:18 Dose: 1 ampul Documented by: Aspirin (Baby Aspirin) 81 mg PO QDAY [facility] Last Admin: 10/23/19 11:44 Dose: 81 mg Documented by: Atorvastatin Calcium (Lipitor) 40 mg PO QHS [facility] Last Admin: 10/23/19 22:51 Dose: 40 mg Documented by: Budesonide (Pulmicort) 0.5 mg IH Q12HRT [facility] Last Admin: 10/23/19 22:18 Dose: 0.5 mg Documented by: Guaifenesin (Guaifenesin Dm Syrup) 10 ml PO Q6H PRN PRN Reason: Cough Last Admin: 10/22/19 18:24 Dose: 10 ml Documented by: Heparin Sodium (Porcine) (Heparin) 5,000 unit SUB-Q Q12HR [facility] Last Admin: 10/23/19 22:51 Dose: 5,000 unit Documented by: Hydralazine HCl (Apresoline) 10 mg IV Q6H PRN PRN Reason: Hypertension Furosemide 100 mg/ Sodium (Chloride) 100 mls @ 10 mls/hr IV Q10H [facility] Last Admin: 10/23/19 22:51 Dose: 10 mg/hr, 10 mls/hr Documented by: Insulin Human Isoph/Insulin Regular (Humulin 70/30) 20 unit SUB-Q BIDDIAB [facility] Last Admin: 10/23/19 16:30 Dose: 20 unit Documented by: Insulin Human Lispro (Humalog) 0 unit SUB-Q ACHS [facility]; Protocol Last Admin: 10/23/19 23:28 Dose: 10 unit Documented by: Metoprolol Tartrate (Metoprolol) 12.5 mg PO BID@0800,1700 [facility] Last Admin: 10/23/19 16:31 Dose: 12.5 mg Documented by: Nifedipine (Procardia Xl) 30 mg PO QDAY@0600 [facility] Last Admin: 10/23/19 06:21 Dose: Not Given Documented by: Ondansetron HCl (Zofran) 4 mg IV Q8H PRN PRN Reason: Nausea And Vomiting Prednisone (Deltasone) 40 mg PO QDAY [facility] Sodium Chloride (Sodium Chloride Flush Syringe 10 Ml) 10 ml IV BID [facility] Last Admin: 10/23/19 22:51 Dose: 10 ml Documented by: Sodium Chloride (Sodium Chloride Flush Syringe 10 Ml) 10 ml IV PRN PRN PRN Reason: LINE FLUSH Last Admin: 10/16/19 05:55 Dose: 10 ml Documented by: Objective Vital Signs - 12hr 10/23/19 10/23/19 10/23/19 13:46 14:00 15:37 Temperature 98.9 F Pulse Rate 99 H Pulse Rate [ 99 H Throughout] Respiratory 18 20 Rate Respiratory 22 Rate [ Throughout] Blood Pressure 180/84 O2 Sat by Pulse 94 Oximetry 10/23/19 10/23/19 10/23/19 15:54 16:31 17:00 Temperature 983 F H Pulse Rate 109 H 104 H 92 H Pulse Rate [ Throughout] Respiratory 16 16 Rate Respiratory Rate [ Throughout] Blood Pressure O2 Sat by Pulse 96 Oximetry 10/23/19 10/23/19 10/23/19 21:23 22:00 22:18 Temperature 98.9 F Pulse Rate 82 Pulse Rate [ 88 Throughout] Respiratory 18 Rate Respiratory 15 Rate [ Throughout] Blood Pressure 171/74 O2 Sat by Pulse 90 98 Oximetry Constitutional: no acute distress, alert, other (obese) Eyes: non-icteric Effort: normal Ascultation: Bilateral: diminished breath sounds Cardiovascular: regular rate and rhythm (no mrg) Gastrointestinal: normoactive bowel sounds, soft, non-tender Integumentary: normal Extremities: pink and warm, edema (2+ bilateral LE edema) Neurologic: normal mental status, non-focal exam, pupils equal and round Psychiatric: mood appropriate, affect normal CBC and BMP: 10/23/19 06:27 10/23/19 06:27 ABG, PT/INR, D-dimer: PT/INR, D-dimer PT 12.6 Sec. (12.2-14.9) 10/23/19 06:27 INR 0.93 (0.87-1.13) 10/23/19 06:27 Abnormal lab findings: Abnormal Labs 10/14/19 10/14/19 10/14/19 10:54 16:02 16:02 RBC 5.32 H Hgb 14.4 H MCH 27 L RDW 15.6 H Lewis % (Auto) 9.4 H Lewis # Sodium 136 L Potassium Chloride 94.0 L Carbon Dioxide BUN Creatinine 0.5 L Glucose 372 H POC Glucose 280 H Hemoglobin A1c Albumin 3.4 L LDL Cholesterol Direct 10/14/19 10/15/19 10/15/19 21:55 06:58 07:41 RBC Hgb MCH RDW Lewis % (Auto) Lewis # Sodium Potassium Chloride 95.2 L Carbon Dioxide BUN Creatinine 0.5 L Glucose 310 H POC Glucose 386 H 314 H Hemoglobin A1c Albumin LDL Cholesterol Direct 10/15/19 10/15/19 10/15/19 12:42 15:36 22:07 RBC Hgb MCH RDW Lewis % (Auto) Lewis # Sodium Potassium Chloride Carbon Dioxide BUN Creatinine Glucose POC Glucose 291 H 373 H 222 H Hemoglobin A1c Albumin LDL Cholesterol Direct 10/16/19 10/16/19 10/16/19 07:15 07:15 07:55 RBC Hgb MCH RDW Lewis % (Auto) Lewis # Sodium Potassium Chloride Carbon Dioxide BUN Creatinine Glucose POC Glucose 260 H Hemoglobin A1c 11.7 H Albumin LDL Cholesterol Direct 133 H 10/16/19 10/16/19 10/16/19 12:11 17:01 21:12 RBC Hgb MCH RDW Lewis % (Auto) Lewis # Sodium Potassium Chloride Carbon Dioxide BUN Creatinine Glucose POC Glucose 284 H 316 H 175 H Hemoglobin A1c Albumin LDL Cholesterol Direct 10/17/19 10/17/19 10/17/19 08:20 12:49 17:59 RBC Hgb MCH RDW Lewis % (Auto) Lewis # Sodium Potassium Chloride Carbon Dioxide BUN Creatinine Glucose POC Glucose 227 H 331 H 292 H Hemoglobin A1c Albumin LDL Cholesterol Direct 10/17/19 10/18/19 10/18/19 21:00 04:58 04:58 RBC 5.24 H Hgb MCH 27 L RDW 15.4 H Lewis % (Auto) Lewis # Sodium Potassium Chloride 91.3 L Carbon Dioxide BUN Creatinine 0.5 L Glucose 373 H POC Glucose 316 H Hemoglobin A1c Albumin LDL Cholesterol Direct 10/18/19 10/18/19 10/18/19 11:28 16:59 22:15 RBC Hgb MCH RDW Lewis % (Auto) Lewis # Sodium Potassium Chloride Carbon Dioxide BUN Creatinine Glucose POC Glucose 315 H 383 H 410 H Hemoglobin A1c Albumin LDL Cholesterol Direct 10/19/19 10/19/19 10/19/19 05:36 07:56 12:39 RBC Hgb MCH RDW Lewis % (Auto) Lewis # Sodium Potassium Chloride 89.9 L Carbon Dioxide 36 H BUN 21 H Creatinine 0.5 L Glucose 404 H POC Glucose 290 H 285 H Hemoglobin A1c Albumin LDL Cholesterol Direct 10/19/19 10/19/19 10/20/19 16:34 21:24 08:08 RBC Hgb MCH RDW Lewis % (Auto) Lewis # Sodium Potassium Chloride Carbon Dioxide BUN Creatinine Glucose POC Glucose 458 H 349 H 317 H Hemoglobin A1c Albumin LDL Cholesterol Direct 10/20/19 10/20/19 10/20/19 11:17 16:11 21:39 RBC Hgb MCH RDW Lewis % (Auto) Lewis # Sodium Potassium Chloride Carbon Dioxide BUN Creatinine Glucose POC Glucose 344 H 484 H 488 H Hemoglobin A1c Albumin LDL Cholesterol Direct 10/21/19 10/21/19 10/21/19 07:47 11:52 17:36 RBC Hgb MCH RDW Lewis % (Auto) Lewis # Sodium Potassium Chloride Carbon Dioxide BUN Creatinine Glucose POC Glucose 269 H 230 H 337 H Hemoglobin A1c Albumin LDL Cholesterol Direct 10/21/19 10/22/19 10/22/19 21:11 08:14 08:30 RBC 5.04 H Hgb MCH 27 L RDW Lewis % (Auto) Lewis # Sodium Potassium Chloride Carbon Dioxide BUN Creatinine Glucose POC Glucose 356 H 272 H Hemoglobin A1c Albumin LDL Cholesterol Direct 10/22/19 10/22/19 10/22/19 08:30 12:05 16:19 RBC Hgb MCH RDW Lewis % (Auto) Lewis # Sodium Potassium 3.3 L Chloride 86.5 L Carbon Dioxide 37 H BUN 18 H Creatinine 0.5 L Glucose 292 H POC Glucose 263 H 331 H Hemoglobin A1c Albumin LDL Cholesterol Direct 10/22/19 10/23/19 10/23/19 21:13 00:27 06:18 RBC 5.10 H Hgb MCH 27 L RDW Lewis % (Auto) 11.7 H Lewis # 1.0 H Sodium Potassium Chloride Carbon Dioxide BUN Creatinine Glucose POC Glucose 355 H 256 H Hemoglobin A1c Albumin LDL Cholesterol Direct 10/23/19 10/23/19 10/23/19 06:27 06:27 06:27 RBC 5.22 H Hgb MCH 27 L RDW Lewis % (Auto) Lewis # Sodium Potassium Chloride 89.2 L Carbon Dioxide 34 H BUN 18 H Creatinine 0.4 L Glucose 268 H POC Glucose Hemoglobin A1c Albumin 3.4 L LDL Cholesterol Direct 10/23/19 10/23/19 10/23/19 11:45 16:32 21:31 RBC Hgb MCH RDW Lewis % (Auto) Lewis # Sodium Potassium Chloride Carbon Dioxide BUN Creatinine Glucose POC Glucose 311 H 475 H 489 H Hemoglobin A1c Albumin LDL Cholesterol Direct Chest x-ray: report reviewed, image reviewed
[2019-10-24 01:54] LABS: BUN/Creatinine Ratio 37; Blood Urea Nitrogen 22 mg/dL (7-17); Calcium 8.9 mg/dL (8.4-10.2); Hemolysis Index 21
[2019-10-24] MEDS: IPRATROPIUM/ALBUTEROL SULFATE 3 ML AMPUL.NEB IH SCH ×4 (02:50→21:05)
[2019-10-24] MEDS: FUROSEMIDE 100 MG in SODIUM CHLORIDE 0.9% 90 ML IV SCH (06:48)
[2019-10-24] MEDS: NIFEdipine XL 30 MG TAB PO SCH (06:49)
[2019-10-24] MEDS: INSULIN LISPRO 100 UNIT/ML SUB-Q SCH ×4 (09:31→21:40)
[2019-10-24] MEDS: METOPROLOL TARTRATE 25 MG TAB PO SCH ×2 (09:32→19:09)
[2019-10-24] MEDS: ASPIRIN 81 MG TAB CHEW PO SCH (09:33)
[2019-10-24] MEDS: predniSONE 20 MG TAB PO SCH (09:34)
[2019-10-24] MEDS: HEPARIN 5,000 UNIT/1 ML VIAL SUB-Q SCH ×2 (09:35→21:40)
[2019-10-24] MEDS: INSULIN NPH/REGULAR 70/30 INJ SUB-Q SCH ×2 (09:37→19:11)
[2019-10-24] MEDS: BUDESONIDE 0.5 MG/2 ML NEBU IH SCH ×2 (09:55→21:05)
--- NOTE | 2019-10-24 10:20 | Progress Note ---
Assessment and Plan Acute heart failure with a preserved ejection fraction EF 55-60% by echo this admission abnormal thallium stress test that showed a large mostly fixed lateral wall defect of prior myocardial infarction. Cath revealing severely elevated filling pressures with a PWP 38 mm Hg, LVEDP 47 mm Hg, PAP 80/36/56, RAP 31 mm Hg Nonobstructive CAD by C this admission COPD exacerbation Essential hypertension Type 2 diabetes mellitus Chronic lymphedema Obesity Tobacco abuse Noncompliant with medications and outpatient followup Subjective Date of service: 10/24/19 Principal diagnosis: Heart Failure Interval history: Lasix gtt continues. Patient admits she is diuresing well. Objective Vital Signs Temp Pulse Pulse Pulse Resp Resp BP 10/24/19 09:58 10/24/19 09:57 78 16 10/24/19 09:32 81 10/24/19 02:50 81 20 10/24/19 02:47 98.2 F 88 18 151/77 10/24/19 02:00 105 H 18 10/23/19 22:18 88 15 10/23/19 22:00 101 H 10/23/19 21:23 98.9 F 82 18 171/74 10/23/19 17:00 983 F H 92 H 16 10/23/19 16:31 104 H 10/23/19 15:54 109 H 16 10/23/19 15:37 98.9 F 99 H 20 180/84 10/23/19 14:00 18 10/23/19 13:46 99 H 22 10/23/19 11:37 72 146/95 Pulse Ox 10/24/19 09:58 96 10/24/19 09:57 10/24/19 09:32 10/24/19 02:50 10/24/19 02:47 81 L 10/24/19 02:00 10/23/19 22:18 10/23/19 22:00 98 10/23/19 21:23 90 10/23/19 17:00 96 10/23/19 16:31 10/23/19 15:54 10/23/19 15:37 94 10/23/19 14:00 10/23/19 13:46 10/23/19 11:37 - Physical Examination General: No Apparent Distress HEENT: Positive: PERRL Neck: Positive: trachea midline Cardiac: Positive: Reg Rate and Rhythm Lungs: Positive: Decreased Breath Sounds Neuro: Positive: Grossly Intact Abdomen: Positive: Unremarkable Extremities: Present: +1 Edema, Other (Chronic lymphedema) - Labs and Meds Cardiac Enzymes 10/23/19 Range/Units 06:27 AST 12 (5-40) units/L Comprehensive Metabolic Panel 10/23/19 10/24/19 Range/Units 06:27 00:47 Sodium 135 L (137-145) mmol/L Potassium 3.6 (3.6-5.0) mmol/L Chloride 82.7 L (98-107) mmol/L Carbon Dioxide 39 H (22-30) mmol/L BUN 22 H (7-17) mg/dL Creatinine 0.6 L (0.7-1.2) mg/dL Glucose 515 H* (65-100) mg/dL Calcium 8.9 (8.4-10.2) mg/dL Direct Bilirubin < 0.2 (0-0.2) mg/dL Indirect Bilirubin 0.1 mg/dL AST 12 (5-40) units/L ALT 16 (7-56) units/L Alkaline Phosphatase 88 (35-129) units/L Total Protein 6.8 (6.3-8.2) g/dL Albumin 3.4 L (3.9-5) g/dL
[2019-10-24] MEDS ORDERED: FUROSEMIDE 100 MG in SODIUM CHLORIDE 0.9% 90 ML IV SCH (12:00)
--- NOTE | 2019-10-24 14:00 | Progress Note ---
Assessment and Plan 54 y/o obese female with acute respiratory failure, and asthma vs COPD exacerbation now found to have ischemic heart disease. Imp: 1. A/C diastolic CHF 2. Pulm HTN 3. Morbid obesity -> probable MARIA DE JESUS/OHS 4. COPD exac. 5. Nicotine dependence, cigarettes Rec: 1. Diuresis as per cardiology WEDGE was severely elevated based on cath report 2. Continue Prednisone at 40 daily. 3. Stop smoking 4. Cont. current nebs 5. Weight loss 6. Outpatient PSG, will need to be done at [facility] 7. Possible PCI at some point; see cath report 8. Needs drug assistance to help with compliance as patient has no funding. Subjective Date of service: 10/24/19 Principal diagnosis: Heart Failure Interval history: No acute events. Room air ABG not completed yet. Objective Vital Signs - 12hr 10/24/19 10/24/19 10/24/19 02:00 02:47 02:50 Temperature 98.2 F Pulse Rate 88 Pulse Rate [ 105 H Apical] Pulse Rate [ 81 Throughout] Respiratory 18 18 Rate Respiratory 20 Rate [ Throughout] Blood Pressure 151/77 O2 Sat by Pulse 81 L Oximetry 10/24/19 10/24/19 10/24/19 09:32 09:57 09:58 Temperature Pulse Rate 81 Pulse Rate [ Apical] Pulse Rate [ 78 Throughout] Respiratory Rate Respiratory 16 Rate [ Throughout] Blood Pressure O2 Sat by Pulse 96 Oximetry Constitutional: no acute distress, alert, other (obese) Eyes: non-icteric Effort: normal Ascultation: Bilateral: diminished breath sounds Cardiovascular: regular rate and rhythm (no mrg) Gastrointestinal: normoactive bowel sounds, soft, non-tender Integumentary: normal Extremities: pink and warm, edema (2+ bilateral LE edema) Neurologic: normal mental status, non-focal exam, pupils equal and round Psychiatric: mood appropriate, affect normal CBC and BMP: 10/23/19 06:27 10/24/19 00:47 ABG, PT/INR, D-dimer: PT/INR, D-dimer PT 12.6 Sec. (12.2-14.9) 10/23/19 06:27 INR 0.93 (0.87-1.13) 10/23/19 06:27 Abnormal lab findings: Abnormal Labs 10/14/19 10/14/19 10/14/19 10:54 16:02 16:02 RBC 5.32 H Hgb 14.4 H MCH 27 L RDW 15.6 H Island % (Auto) 9.4 H Island # Sodium 136 L Potassium Chloride 94.0 L Carbon Dioxide BUN Creatinine 0.5 L Glucose 372 H POC Glucose 280 H Hemoglobin A1c Albumin 3.4 L LDL Cholesterol Direct 10/14/19 10/15/19 10/15/19 21:55 06:58 07:41 RBC Hgb MCH RDW Island % (Auto) Island # Sodium Potassium Chloride 95.2 L Carbon Dioxide BUN Creatinine 0.5 L Glucose 310 H POC Glucose 386 H 314 H Hemoglobin A1c Albumin LDL Cholesterol Direct 10/15/19 10/15/19 10/15/19 12:42 15:36 22:07 RBC Hgb MCH RDW Island % (Auto) Island # Sodium Potassium Chloride Carbon Dioxide BUN Creatinine Glucose POC Glucose 291 H 373 H 222 H Hemoglobin A1c Albumin LDL Cholesterol Direct 10/16/19 10/16/19 10/16/19 07:15 07:15 07:55 RBC Hgb MCH RDW Island % (Auto) Island # Sodium Potassium Chloride Carbon Dioxide BUN Creatinine Glucose POC Glucose 260 H Hemoglobin A1c 11.7 H Albumin LDL Cholesterol Direct 133 H 10/16/19 10/16/19 10/16/19 12:11 17:01 21:12 RBC Hgb MCH RDW Island % (Auto) Island # Sodium Potassium Chloride Carbon Dioxide BUN Creatinine Glucose POC Glucose 284 H 316 H 175 H Hemoglobin A1c Albumin LDL Cholesterol Direct 10/17/19 10/17/19 10/17/19 08:20 12:49 17:59 RBC Hgb MCH RDW Island % (Auto) Island # Sodium Potassium Chloride Carbon Dioxide BUN Creatinine Glucose POC Glucose 227 H 331 H 292 H Hemoglobin A1c Albumin LDL Cholesterol Direct 10/17/19 10/18/19 10/18/19 21:00 04:58 04:58 RBC 5.24 H Hgb MCH 27 L RDW 15.4 H Island % (Auto) Island # Sodium Potassium Chloride 91.3 L Carbon Dioxide BUN Creatinine 0.5 L Glucose 373 H POC Glucose 316 H Hemoglobin A1c Albumin LDL Cholesterol Direct 10/18/19 10/18/19 10/18/19 11:28 16:59 22:15 RBC Hgb MCH RDW Island % (Auto) Island # Sodium Potassium Chloride Carbon Dioxide BUN Creatinine Glucose POC Glucose 315 H 383 H 410 H Hemoglobin A1c Albumin LDL Cholesterol Direct 10/19/19 10/19/19 10/19/19 05:36 07:56 12:39 RBC Hgb MCH RDW Island % (Auto) Island # Sodium Potassium Chloride 89.9 L Carbon Dioxide 36 H BUN 21 H Creatinine 0.5 L Glucose 404 H POC Glucose 290 H 285 H Hemoglobin A1c Albumin LDL Cholesterol Direct 10/19/19 10/19/19 10/20/19 16:34 21:24 08:08 RBC Hgb MCH RDW Island % (Auto) Island # Sodium Potassium Chloride Carbon Dioxide BUN Creatinine Glucose POC Glucose 458 H 349 H 317 H Hemoglobin A1c Albumin LDL Cholesterol Direct 10/20/19 10/20/19 10/20/19 11:17 16:11 21:39 RBC Hgb MCH RDW Island % (Auto) Island # Sodium Potassium Chloride Carbon Dioxide BUN Creatinine Glucose POC Glucose 344 H 484 H 488 H Hemoglobin A1c Albumin LDL Cholesterol Direct 10/21/19 10/21/19 10/21/19 07:47 11:52 17:36 RBC Hgb MCH RDW Island % (Auto) Island # Sodium Potassium Chloride Carbon Dioxide BUN Creatinine Glucose POC Glucose 269 H 230 H 337 H Hemoglobin A1c Albumin LDL Cholesterol Direct 10/21/19 10/22/19 10/22/19 21:11 08:14 08:30 RBC 5.04 H Hgb MCH 27 L RDW Island % (Auto) Island # Sodium Potassium Chloride Carbon Dioxide BUN Creatinine Glucose POC Glucose 356 H 272 H Hemoglobin A1c Albumin LDL Cholesterol Direct 10/22/19 10/22/19 10/22/19 08:30 12:05 16:19 RBC Hgb MCH RDW [place] % (Auto) Island # Sodium Potassium 3.3 L Chloride 86.5 L Carbon Dioxide 37 H BUN 18 H Creatinine 0.5 L Glucose 292 H POC Glucose 263 H 331 H Hemoglobin A1c Albumin LDL Cholesterol Direct 10/22/19 10/23/19 10/23/19 21:13 00:27 06:18 RBC 5.10 H Hgb MCH 27 L RDW [place] % (Auto) 11.7 H Island # 1.0 H Sodium Potassium Chloride Carbon Dioxide BUN Creatinine Glucose POC Glucose 355 H 256 H Hemoglobin A1c Albumin LDL Cholesterol Direct 10/23/19 10/23/19 10/23/19 06:27 06:27 06:27 RBC 5.22 H Hgb MCH 27 L RDW [place] % (Auto) Island # Sodium Potassium Chloride 89.2 L Carbon Dioxide 34 H BUN 18 H Creatinine 0.4 L Glucose 268 H POC Glucose Hemoglobin A1c Albumin 3.4 L LDL Cholesterol Direct 10/23/19 10/23/19 10/23/19 11:45 16:32 21:31 RBC Hgb MCH RDW [place] % (Auto) Island # Sodium Potassium Chloride Carbon Dioxide BUN Creatinine Glucose POC Glucose 311 H 475 H 489 H Hemoglobin A1c Albumin LDL Cholesterol Direct 10/24/19 10/24/19 10/24/19 00:47 07:55 12:06 RBC Hgb MCH RDW [place] % (Auto) Island # Sodium 135 L Potassium Chloride 82.7 L Carbon Dioxide 39 H BUN 22 H Creatinine 0.6 L Glucose 515 H* POC Glucose 324 H 339 H Hemoglobin A1c Albumin LDL Cholesterol Direct
--- NOTE | 2019-10-24 14:39 | Progress Note ---
Assessment and Plan /Acute diastolic CHF (congestive heart failure) input output monitoring, Cardiology following, low-sodium diet, fluid restriction, cont on lasix drip /Acute hypoxic respiratory failure secondary to obesity hypoventilation syndrome/MARIA DE JESUS/acute diastolic dysfunction Continue current management trying to wean off o2, she dropped to 88% at rest /-Acute Asthma exacerbation treated with IV steroids consult Pulmonology, input noted /Obesity hypoventilation syndrome oxygen, nebs, titrate O2 sats to more than 90% NIPPV as clinically indicated, pulse oximetry Titrate O2 sats to more than 90% Outpatient sleep study to rule out obstructive sleep apnea CPAP BiPAP at night and as needed /Coronary artery disease with 80% mid RCA and 50-60% mid LAD stenosis. - She is started on IV lasix drip to improve the severe diastolic heart failure so that Cardiology can go back and stent the RCA. /Type II diabetes mellitus; uncontrolled Accu check, sliding scale coverage , ADA diet Insulin as needed , oral hypoglycemics Added long-acting insulin - adjust dosage,hypoglycemia protocol /HTN (hypertension); moderate control Continue current antihypertensives, PRN medications /Morbid obesity; BMI >50 Dietary modification exercise as tolerated and weight reduction Patient may benefit from evaluation by bariatric team outpatient For weight reduction as outpatient when medically stable /DVT prophylaxis SCD to BLE while in bed, prophylactic lovenox. Disposition: continue inpatient care, Cardiology starting IV lasix drip Brief History Patient is a 54 yo woman with a history of MO, Obesity Hypoventilation Syndrome, HTN, DM, Lymphedema, Asthma presents to ED for evaluationof shortness of breath over the past 4 days with worsening symptoms over the past 2 days. Pt acknowledges decreased exercise tolerance, Orthopnea/PND, dypsnea at rest, dypsnea on exertion, leg edema. Noted to be in acute on chronic hypoxic respiratory failure requiring BiPAP, now weaned off. Acute diastolic congestive heart failure, managed appropriately. Evaluated by cardiology, medications optimized, stress test ordered for 10/17/19 but unable to complete due to bronchospasm. Cardiology has requested Pulm consultation and change the stress test medication. Uncontrolled blood sugars secondary to steroid use, increased Insulin. Wednesday night, patient had 26 beat run of NSVT and acute bronchospasm unable to do stress test on Wednesday, started IV steroid, which helped, dobutamine stess test is abnormal on Wednesday and [facility] planned for per Cardiology. Patient went down for Cardiac catherization on but was unable to lay flat due to persistent coughing and sob, so Cardiac catherization re-scheduled until Wednesday per Security Rep. Pulmonology is following for lung disease, weaning down steroids. Patient had diagnostic LHC today which showed extremely elevated filling pressures with a PWP 38 mm Hg, LVEDP 47 mm Hg, PAP 80/36/56, RAP 31 mm Hg and Coronary artery disease with 80% mid RCA and 50-60% mid LAD stenosis. She is started on IV lasix drip to improve the severe diastolic heart failure so that Cardiology can go back and stent the RCA. Hospitalist Physical Gen: WDWN, NAD, Awake, Alert, Orientated HEENT: NCAT, EOMI, PERRL, OP Clear Neck: supple, no adenopathy, no thyromegaly, no JVD CVS/Heart: RRR, normal S1S2, pulses present bilaterally Chest/Lungs:DIMINISHED BS BILATERAL WITH WHEEZING, Symmetrical chest expansion, good air entry bilaterally GI/Abdomen: soft, NTND, good bowel sounds, no guarding or rebound /Bladder: no suprapubic tenderness, no CVA or paraspinal tenderness Extermity/Skin: no c/c/e, no obvious rash MSK: FROM x 4 Neuro: CN 2-12 grossly intact, no new focal deficits Psych: calm Subjective Date of service: 10/24/19 Principal diagnosis: Heart Failure Interval history: patient seen and examined on lasix drip, breathing better tolerating diet no chest pain Objective - Constitutional Vitals: Vital Signs - 12hr 10/24/19 10/24/19 10/24/19 02:47 02:50 09:32 Temperature 98.2 F Pulse Rate 88 81 Pulse Rate [ 81 Throughout] Respiratory 18 Rate Respiratory 20 Rate [ Throughout] Blood Pressure 151/77 O2 Sat by Pulse 81 L Oximetry 10/24/19 10/24/19 09:57 09:58 Temperature Pulse Rate Pulse Rate [ 78 Throughout] Respiratory Rate Respiratory 16 Rate [ Throughout] Blood Pressure O2 Sat by Pulse 96 Oximetry - Labs CBC & Chem 7: 10/23/19 06:27 10/24/19 00:47 Labs: Abnormal lab results 10/23/19 10/23/19 10/24/19 Range/Units 16:32 21:31 00:47 Sodium 135 L (137-145) mmol/L Chloride 82.7 L (98-107) mmol/L Carbon Dioxide 39 H (22-30) mmol/L BUN 22 H (7-17) mg/dL Creatinine 0.6 L (0.7-1.2) mg/dL Glucose 515 H* (65-100) mg/dL POC Glucose 475 H 489 H (70-105) 10/24/19 10/24/19 Range/Units 07:55 12:06 Sodium (137-145) mmol/L Chloride (98-107) mmol/L Carbon Dioxide (22-30) mmol/L BUN (7-17) mg/dL Creatinine (0.7-1.2) mg/dL Glucose (65-100) mg/dL POC Glucose 324 H 339 H (70-105)
[2019-10-24] MEDS: guaiFENesin DM 200/20 MG ORAL LIQD 10 ML PO PRN (21:47)
--- NOTE | 2019-10-24 23:53 | Progress Note ---
Assessment and Plan Acute heart failure with a preserved ejection fraction EF 55-60% by echo this admission abnormal thallium stress test that showed a large mostly fixed lateral wall defect of prior myocardial infarction. Cath revealing severely elevated filling pressures with a PWP 38 mm Hg, LVEDP 47 mm Hg, PAP 80/36/56, RAP 31 mm Hg Nonobstructive CAD by [facility] this admission COPD exacerbation - management per primary Essential hypertension - maximize nifedipine Type 2 diabetes mellitus - management per primary Chronic lymphedema Obesity Tobacco abuse Noncompliant with medications and outpatient followup Subjective Date of service: 10/24/19 Principal diagnosis: Heart Failure Interval history: No acute events. resting comfortably. No chest pain or SOB. Objective Vital Signs Temp Pulse Pulse Pulse Resp Resp BP 10/24/19 21:08 10/24/19 21:07 96 H 20 10/24/19 20:38 98.3 F 10/24/19 20:37 82 20 141/62 10/24/19 19:09 88 10/24/19 16:44 88 18 10/24/19 10:00 70 10/24/19 09:58 10/24/19 09:57 78 16 10/24/19 09:32 81 10/24/19 09:07 99.8 F H 119 H 19 130/66 10/24/19 08:53 98.8 F 81 18 174/81 10/24/19 02:50 81 20 10/24/19 02:47 98.2 F 88 18 151/77 10/24/19 02:00 105 H 18 Pulse Ox 10/24/19 21:08 99 10/24/19 21:07 10/24/19 20:38 10/24/19 20:37 94 10/24/19 19:09 10/24/19 16:44 10/24/19 10:00 10/24/19 09:58 96 10/24/19 09:57 10/24/19 09:32 10/24/19 09:07 93 10/24/19 08:53 93 10/24/19 02:50 10/24/19 02:47 81 L 10/24/19 02:00 - Physical Examination General: No Apparent Distress HEENT: Positive: PERRL Neck: Positive: trachea midline Neuro: Positive: Grossly Intact Abdomen: Positive: Unremarkable Extremities: Present: +1 Edema, Other (Chronic lymphedema) - Labs and Meds Comprehensive Metabolic Panel 10/24/19 Range/Units 00:47 Sodium 135 L (137-145) mmol/L Potassium 3.6 (3.6-5.0) mmol/L Chloride 82.7 L (98-107) mmol/L Carbon Dioxide 39 H (22-30) mmol/L BUN 22 H (7-17) mg/dL Creatinine 0.6 L (0.7-1.2) mg/dL Glucose 515 H* (65-100) mg/dL Calcium 8.9 (8.4-10.2) mg/dL
[2019-10-25] MEDS: IPRATROPIUM/ALBUTEROL SULFATE 3 ML AMPUL.NEB IH SCH ×4 (02:05→21:03)
[2019-10-25] MEDS: NIFEdipine XL 30 MG TAB PO SCH (05:07)
[2019-10-25] MEDS: BUDESONIDE 0.5 MG/2 ML NEBU IH SCH ×2 (07:26→21:03)
[2019-10-25] MEDS: INSULIN NPH/REGULAR 70/30 INJ SUB-Q SCH ×2 (08:46→17:46)
[2019-10-25] MEDS: METOPROLOL TARTRATE 25 MG TAB PO SCH ×2 (08:48→17:01)
[2019-10-25] MEDS: NIFEdipine XL 90 MG TAB PO SCH (09:24)
[2019-10-25] MEDS: INSULIN LISPRO 100 UNIT/ML SUB-Q SCH ×4 (09:24→21:43)
[2019-10-25] MEDS: predniSONE 20 MG TAB PO SCH (09:24)
[2019-10-25] MEDS: ASPIRIN 81 MG TAB CHEW PO SCH (09:24)
[2019-10-25] MEDS: HEPARIN 5,000 UNIT/1 ML VIAL SUB-Q SCH ×2 (09:26→21:42)
--- NOTE | 2019-10-25 14:47 | Progress Note ---
Assessment and Plan /Acute diastolic CHF (congestive heart failure) input output monitoring, Cardiology following, low-sodium diet, fluid restriction, on lasix drip - will change to po dose from tomorrow /Acute hypoxic respiratory failure secondary to obesity hypoventilation syndrome/MARIA DE JESUS/acute diastolic dysfunction Continue current management trying to wean off o2, she dropped to 88% at rest /-Acute Asthma exacerbation treated with IV steroids consult Pulmonology, input noted /Obesity hypoventilation syndrome oxygen, nebs, titrate O2 sats to more than 90% NIPPV as clinically indicated, pulse oximetry Titrate O2 sats to more than 90% Outpatient sleep study to rule out obstructive sleep apnea CPAP/BiPAP at night and as needed /Type II diabetes mellitus; uncontrolled Accu check, sliding scale coverage , ADA diet Insulin as needed , oral hypoglycemics Added long-acting insulin - cont to adjust dosage, hypoglycemia protocol /Coronary artery disease - Per cardiology recent notes non-obstructive - cont medical Mx for now /HTN (hypertension); moderate control Continue current antihypertensives, PRN medications /Morbid obesity; BMI >50 Dietary modification exercise as tolerated and weight reduction Patient may benefit from evaluation by bariatric team outpatient For weight reduction as outpatient when medically stable /DVT prophylaxis SCD to BLE while in bed, prophylactic lovenox. Disposition: continue inpatient care, assess for home o2 requirement Brief History Patient is a 54 yo woman with a history of MO, Obesity Hypoventilation Syndrome, HTN, DM, Lymphedema, Asthma presents to ED for evaluationof shortness of breath over the past 4 days with worsening symptoms over the past 2 days. Pt ackno wledges decreased exercise tolerance, Orthopnea/PND, dypsnea at rest, dypsnea on exertion, leg edema. Noted to be in acute on chronic hypoxic respiratory failure requiring BiPAP, now weaned off. Acute diastolic congestive heart failure, managed appropriately. Evaluated by cardiology, medications optimized, stress test ordered for 10/17/19 but unable to complete due to bronchospasm. Cardiology has requested Pulm consultation and change the stress test medication. Uncontrolled blood sugars secondary to steroid use, increased Insulin. Wednesday night, patient had 26 beat run of NSVT and acute bronchospasm unable to do stress test on Wednesday, started IV steroid, which helped, dobutamine stess test is abnormal on Wednesday and LHC planned for per Cardiology. Patient went down for Cardiac catherization on but was unable to lay flat due to persistent coughing and sob, so Cardiac catherization re-scheduled until Wednesday per Education Instructor. Pulmonology is following for lung disease, weaning down steroids. Patient had diagnostic LHC today which showed extremely elevated filling pressures with a PWP 38 mm Hg, LVEDP 47 mm Hg, PAP 80/36/56, RAP 31 mm Hg and non obstructive Coronary artery disease. d/c when clears by cardiology. Hospitalist Physical Gen: WDWN, NAD, Awake, Alert, Orientated HEENT: NCAT, EOMI, PERRL, OP Clear Neck: supple, no adenopathy, no thyromegaly, no JVD CVS/Heart: RRR, normal S1S2, pulses present bilaterally Chest/Lungs:DIMINISHED BS BILATERAL WITH WHEEZING, Symmetrical chest expansion, good air entry bilaterally GI/Abdomen: soft, NTND, good bowel sounds, no guarding or rebound /Bladder: no suprapubic tenderness, no CVA or paraspinal tenderness Extermity/Skin: no c/c/e, no obvious rash MSK: FROM x 4 Neuro: CN 2-12 grossly intact, no new focal deficits Psych: calm Subjective Date of service: 10/25/19 Principal diagnosis: Heart Failure Interval history: patient seen and examined on lasix drip, breathing better tolerating diet no chest pain Objective - Constitutional Vitals: Vital Signs - 12hr 10/25/19 10/25/19 10/25/19 05:04 05:05 07:27 Temperature 98.5 F Pulse Rate 95 H Pulse Rate [ 87 Throughout] Respiratory 20 Rate Respiratory 20 Rate [ Throughout] Blood Pressure 173/65 O2 Sat by Pulse 96 96 Oximetry 10/25/19 10/25/19 10/25/19 08:47 08:48 10:00 Temperature 98.6 F Pulse Rate 96 H 96 H 94 H Pulse Rate [ Throughout] Respiratory 18 Rate Respiratory Rate [ Throughout] Blood Pressure 151/75 151/75 O2 Sat by Pulse 92 Oximetry 10/25/19 10/25/19 10/25/19 12:04 12:51 13:11 Temperature 97.9 F Pulse Rate 73 Pulse Rate [ 88 Throughout] Respiratory 18 18 Rate Respiratory 20 Rate [ Throughout] Blood Pressure 120/83 O2 Sat by Pulse 96 Oximetry - Labs CBC & Chem 7: 10/23/19 06:27 12/26/19 09:13 Labs: Abnormal lab results 10/24/19 10/24/19 10/25/19 Range/Units 16:02 21:22 08:21 POC Glucose 346 H 375 H 287 H (70-105) 10/25/19 Range/Units 11:50 POC Glucose 323 H (70-105)
--- NOTE | 2019-10-25 14:54 | Progress Note ---
Subjective Date of service: 10/25/19 Principal diagnosis: Heart Failure Interval history: Patient reports breathing to be better. Patient and family give history of loud snoring, restless sleep, nocturia and daytime fatigue and possibly some EDS Objective Vital Signs - 12hr 10/25/19 10/25/19 10/25/19 05:04 05:05 07:27 Temperature 98.5 F Pulse Rate 95 H Pulse Rate [ 87 Throughout] Respiratory 20 Rate Respiratory 20 Rate [ Throughout] Blood Pressure 173/65 O2 Sat by Pulse 96 96 Oximetry 10/25/19 10/25/19 10/25/19 08:47 08:48 10:00 Temperature 98.6 F Pulse Rate 96 H 96 H 94 H Pulse Rate [ Throughout] Respiratory 18 Rate Respiratory Rate [ Throughout] Blood Pressure 151/75 151/75 O2 Sat by Pulse 92 Oximetry 10/25/19 10/25/19 10/25/19 12:04 12:51 13:11 Temperature 97.9 F Pulse Rate 73 Pulse Rate [ 88 Throughout] Respiratory 18 18 Rate Respiratory 20 Rate [ Throughout] Blood Pressure 120/83 O2 Sat by Pulse 96 Oximetry Constitutional: no acute distress, alert, other (obese) Eyes: non-icteric Effort: normal Ascultation: Bilateral: diminished breath sounds Cardiovascular: regular rate and rhythm (no mrg) Gastrointestinal: normoactive bowel sounds, soft, non-tender Integumentary: normal Extremities: pink and warm, edema (2+ bilateral LE edema) Neurologic: normal mental status, non-focal exam, pupils equal and round Psychiatric: mood appropriate, affect normal CBC and BMP: 10/23/19 06:27 10/24/19 00:47 ABG, PT/INR, D-dimer: PT/INR, D-dimer PT 12.6 Sec. (12.2-14.9) 10/23/19 06:27 INR 0.93 (0.87-1.13) 10/23/19 06:27 Abnormal lab findings: Abnormal Labs 10/14/19 10/14/19 10/14/19 10:54 16:02 16:02 RBC 5.32 H Hgb 14.4 H MCH 27 L RDW 15.6 H [place] % (Auto) 9.4 H [place] # Sodium 136 L Potassium Chloride 94.0 L Carbon Dioxide BUN Creatinine 0.5 L Glucose 372 H POC Glucose 280 H Hemoglobin A1c Albumin 3.4 L LDL Cholesterol Direct 10/14/19 10/15/19 10/15/19 21:55 06:58 07:41 RBC Hgb MCH RDW [place] % (Auto) [place] # Sodium Potassium Chloride 95.2 L Carbon Dioxide BUN Creatinine 0.5 L Glucose 310 H POC Glucose 386 H 314 H Hemoglobin A1c Albumin LDL Cholesterol Direct 10/15/19 10/15/19 10/15/19 12:42 15:36 22:07 RBC Hgb MCH RDW [place] % (Auto) [place] # Sodium Potassium Chloride Carbon Dioxide BUN Creatinine Glucose POC Glucose 291 H 373 H 222 H Hemoglobin A1c Albumin LDL Cholesterol Direct 10/16/19 10/16/19 10/16/19 07:15 07:15 07:55 RBC Hgb MCH RDW [place] % (Auto) [place] # Sodium Potassium Chloride Carbon Dioxide BUN Creatinine Glucose POC Glucose 260 H Hemoglobin A1c 11.7 H Albumin LDL Cholesterol Direct 133 H 10/16/19 10/16/19 10/16/19 12:11 17:01 21:12 RBC Hgb MCH RDW [place] % (Auto) [place] # Sodium Potassium Chloride Carbon Dioxide BUN Creatinine Glucose POC Glucose 284 H 316 H 175 H Hemoglobin A1c Albumin LDL Cholesterol Direct 10/17/19 10/17/19 10/17/19 08:20 12:49 17:59 RBC Hgb MCH RDW [place] % (Auto) [place] # Sodium Potassium Chloride Carbon Dioxide BUN Creatinine Glucose POC Glucose 227 H 331 H 292 H Hemoglobin A1c Albumin LDL Cholesterol Direct 10/17/19 10/18/19 10/18/19 21:00 04:58 04:58 RBC 5.24 H Hgb MCH 27 L RDW 15.4 H [place] % (Auto) [place] # Sodium Potassium Chloride 91.3 L Carbon Dioxide BUN Creatinine 0.5 L Glucose 373 H POC Glucose 316 H Hemoglobin A1c Albumin LDL Cholesterol Direct 10/18/19 10/18/19 10/18/19 11:28 16:59 22:15 RBC Hgb MCH RDW [place] % (Auto) [place] # Sodium Potassium Chloride Carbon Dioxide BUN Creatinine Glucose POC Glucose 315 H 383 H 410 H Hemoglobin A1c Albumin LDL Cholesterol Direct 10/19/19 10/19/19 10/19/19 05:36 07:56 12:39 RBC Hgb MCH RDW [place] % (Auto) [place] # Sodium Potassium Chloride 89.9 L Carbon Dioxide 36 H BUN 21 H Creatinine 0.5 L Glucose 404 H POC Glucose 290 H 285 H Hemoglobin A1c Albumin LDL Cholesterol Direct 10/19/19 10/19/19 10/20/19 16:34 21:24 08:08 RBC Hgb MCH RDW [place] % (Auto) [place] # Sodium Potassium Chloride Carbon Dioxide BUN Creatinine Glucose POC Glucose 458 H 349 H 317 H Hemoglobin A1c Albumin LDL Cholesterol Direct 10/20/19 10/20/19 10/20/19 11:17 16:11 21:39 RBC Hgb MCH RDW [place] % (Auto) [place] # Sodium Potassium Chloride Carbon Dioxide BUN Creatinine Glucose POC Glucose 344 H 484 H 488 H Hemoglobin A1c Albumin LDL Cholesterol Direct 10/21/19 10/21/19 10/21/19 07:47 11:52 17:36 RBC Hgb MCH RDW [place] % (Auto) [place] # Sodium Potassium Chloride Carbon Dioxide BUN Creatinine Glucose POC Glucose 269 H 230 H 337 H Hemoglobin A1c Albumin LDL Cholesterol Direct 10/21/19 10/22/19 10/22/19 21:11 08:14 08:30 RBC 5.04 H Hgb MCH 27 L RDW [place] % (Auto) [place] # Sodium Potassium Chloride Carbon Dioxide BUN Creatinine Glucose POC Glucose 356 H 272 H Hemoglobin A1c Albumin LDL Cholesterol Direct 10/22/19 10/22/19 10/22/19 08:30 12:05 16:19 RBC Hgb MCH RDW [place] % (Auto) [place] # Sodium Potassium 3.3 L Chloride 86.5 L Carbon Dioxide 37 H BUN 18 H Creatinine 0.5 L Glucose 292 H POC Glucose 263 H 331 H Hemoglobin A1c Albumin LDL Cholesterol Direct 10/22/19 10/23/19 10/23/19 21:13 00:27 06:18 RBC 5.10 H Hgb MCH 27 L RDW [place] % (Auto) 11.7 H [place] # 1.0 H Sodium Potassium Chloride Carbon Dioxide BUN Creatinine Glucose POC Glucose 355 H 256 H Hemoglobin A1c Albumin LDL Cholesterol Direct 10/23/19 10/23/19 10/23/19 06:27 06:27 06:27 RBC 5.22 H Hgb MCH 27 L RDW [place] % (Auto) [place] # Sodium Potassium Chloride 89.2 L Carbon Dioxide 34 H BUN 18 H Creatinine 0.4 L Glucose 268 H POC Glucose Hemoglobin A1c Albumin 3.4 L LDL Cholesterol Direct 10/23/19 10/23/19 10/23/19 11:45 16:32 21:31 RBC Hgb MCH RDW [place] % (Auto) [place] # Sodium Potassium Chloride Carbon Dioxide BUN Creatinine Glucose POC Glucose 311 H 475 H 489 H Hemoglobin A1c Albumin LDL Cholesterol Direct 10/24/19 10/24/19 10/24/19 00:47 07:55 12:06 RBC Hgb MCH RDW [place] % (Auto) [place] # Sodium 135 L Potassium Chloride 82.7 L Carbon Dioxide 39 H BUN 22 H Creatinine 0.6 L Glucose 515 H* POC Glucose 324 H 339 H Hemoglobin A1c Albumin LDL Cholesterol Direct 10/24/19 10/24/19 10/25/19 16:02 21:22 08:21 RBC Hgb MCH RDW [place] % (Auto) [place] # Sodium Potassium Chloride Carbon Dioxide BUN Creatinine Glucose POC Glucose 346 H 375 H 287 H Hemoglobin A1c Albumin LDL Cholesterol Direct 10/25/19 11:50 RBC Hgb MCH RDW [place] % (Auto) [place] # Sodium Potassium Chloride Carbon Dioxide BUN Creatinine Glucose POC Glucose 323 H Hemoglobin A1c Albumin LDL Cholesterol Direct
[2019-10-25] MEDS: guaiFENesin DM 200/20 MG ORAL LIQD 10 ML PO PRN (21:42)
[2019-10-26] MEDS: IPRATROPIUM/ALBUTEROL SULFATE 3 ML AMPUL.NEB IH SCH ×4 (02:05→21:08)
[2019-10-26] MEDS: BUDESONIDE 0.5 MG/2 ML NEBU IH SCH ×2 (08:00→21:08)
[2019-10-26] MEDS: INSULIN NPH/REGULAR 70/30 INJ SUB-Q SCH ×3 (08:24→17:16)
[2019-10-26] MEDS: METOPROLOL TARTRATE 25 MG TAB PO SCH ×2 (08:25→17:17)
[2019-10-26] MEDS: INSULIN LISPRO 100 UNIT/ML SUB-Q SCH ×4 (09:30→21:40)
[2019-10-26] MEDS: predniSONE 20 MG TAB PO SCH (09:43)
[2019-10-26] MEDS: NIFEdipine XL 90 MG TAB PO SCH (09:43)
[2019-10-26] MEDS: HEPARIN 5,000 UNIT/1 ML VIAL SUB-Q SCH ×2 (09:43→21:40)
[2019-10-26] MEDS: ASPIRIN 81 MG TAB CHEW PO SCH (09:43)
[2019-10-26 10:16] LABS: BUN/Creatinine Ratio 42; Blood Urea Nitrogen 21 mg/dL (7-17); Calcium 9.3 mg/dL (8.4-10.2); Hemolysis Index 5
--- NOTE | 2019-10-26 13:10 | Progress Note ---
Assessment and Plan - Patient Problems (1) CHF (congestive heart failure) Current Visit: Yes Status: Acute Qualifiers: Heart failure type: unspecified Heart failure chronicity: acute Qualified Code(s): I50.9 - Heart failure, unspecified Plan to address problem: Patient has heart failure with preserved ejection fraction, symptoms improved on medical therapy. In addition, there is severe chronic lung disease and severe pulmonary hypertension, managed by the pulmonary service. There is nonobstructive two-vessel coronary disease which is recommended for aggressive risk factor modification and medical therapy. Otherwise, patient is stable for cardiac discharge, to follow-up in the office in 7 days. Subjective Date of service: 10/26/19 Principal diagnosis: Heart Failure Interval history: Patient looks and feels well, no cardiac complaints. She once to go home. Objective Vital Signs Temp Pulse Pulse Resp Resp BP Pulse Ox 10/26/19 10:00 82 10/26/19 08:40 18 92 10/26/19 08:32 83 18 135/68 92 10/26/19 08:25 96 H 134/51 10/26/19 08:05 96 10/26/19 08:00 86 18 10/26/19 04:19 98.0 F 86 18 134/51 94 10/26/19 00:00 91 H 10/25/19 23:49 98.0 F 93 H 20 131/50 87 10/25/19 21:06 98 10/25/19 21:05 84 20 10/25/19 19:41 98.6 F 10/25/19 19:40 77 18 133/59 97 10/25/19 17:01 84 145/73 10/25/19 13:11 88 20 - Physical Examination General: No Apparent Distress HEENT: Positive: PERRL Neck: Positive: trachea midline Cardiac: Positive: Reg Rate and Rhythm Lungs: Positive: Decreased Breath Sounds Neuro: Positive: Grossly Intact Abdomen: Positive: Unremarkable Skin: Positive: Clear Extremities: Present: Other (Chronic lymphedema). Absent: edema - Labs and Meds Comprehensive Metabolic Panel 10/26/19 Range/Units 09:13 Sodium 138 (137-145) mmol/L Potassium 3.4 L (3.6-5.0) mmol/L Chloride 85.5 L (98-107) mmol/L Carbon Dioxide 36 H (22-30) mmol/L BUN 21 H (7-17) mg/dL Creatinine 0.5 L (0.7-1.2) mg/dL Glucose 353 H (65-100) mg/dL Calcium 9.3 (8.4-10.2) mg/dL
--- NOTE | 2019-10-26 16:28 | Progress Note ---
Assessment and Plan /Acute diastolic CHF (congestive heart failure) input output monitoring, Cardiology following, low-sodium diet, fluid restriction, s/p lasix drip - change to po dose from today /Acute hypoxic respiratory failure secondary to obesity hypoventilation syndrome/MARIA DE JESUS/acute diastolic dysfunction Continue current management she dropped to 88% at rest, need home O2 /-Acute Asthma exacerbation treated with IV steroids consult Pulmonology, input noted /Obesity hypoventilation syndrome oxygen, nebs, titrate O2 sats to more than 90% NIPPV as clinically indicated, pulse oximetry Titrate O2 sats to more than 90% Outpatient sleep study to rule out obstructive sleep apnea CPAP/BiPAP at night and as needed /Type II diabetes mellitus; uncontrolled Accu check, sliding scale coverage , ADA diet Insulin as needed , oral hypoglycemics Added long-acting insulin - cont to adjust dosage, hypoglycemia protocol /Coronary artery disease - Per cardiology recent notes non-obstructive - cont medical Mx for now /HTN (hypertension); moderate control Continue current antihypertensives, PRN medications /Morbid obesity; BMI >50 Dietary modification exercise as tolerated and weight reduction Patient may benefit from evaluation by bariatric team outpatient For weight reduction as outpatient when medically stable /DVT prophylaxis SCD to BLE while in bed, prophylactic lovenox. Disposition: continue inpatient care, need home o2 Brief History Patient is a 54 yo woman with a history of MO, Obesity Hypoventilation Syndrome, HTN, DM, Lymphedema, Asthma presents to ED for evaluationof shortness of breath over the past 4 days with worsening symptoms over the past 2 days. Pt acknowledges decreased exercise tolerance, Orthopnea/PND, dypsnea at rest, dypsnea on exertion, leg edema. Noted to be in acute on chronic hypoxic respiratory failure requiring BiPAP, now weaned off. Acute diastolic congestive heart failure, managed appropriately. Evaluated by cardiology, medications optimized, stress test ordered for 10/17/19 but unable to complete due to bronchospasm. Cardiology has requested Pulm consultation and change the stress test medication. Uncontrolled blood sugars secondary to steroid use, increased Insulin. Wednesday night, patient had 26 beat run of NSVT and acute bronchospasm unable to do stress test on Wednesday, started IV steroid, which helped, dobutamine stess test is abnormal on Wednesday and [facility] planned for per Cardiology. Patient went down for Cardiac catherization on but was unable to lay flat due to persistent coughing and sob, so Cardiac catherization re-scheduled until Wednesday per Software Quality Test Engineer. Pulmonology is following for lung disease, weaning down steroids. Patient had diagnostic LHC today which showed extremely elevated filling pressures with a PWP 38 mm Hg, LVEDP 47 mm Hg, PAP 80/36/56, RAP 31 mm Hg and non obstructive Coronary artery disease. d/c when clears by cardiology. Hospitalist Physical Gen: WDWN, NAD, Awake, Alert, Orientated HEENT: NCAT, EOMI, PERRL, OP Clear Neck: supple, no adenopathy, no thyromegaly, no JVD CVS/Heart: RRR, normal S1S2, pulses present bilaterally Chest/Lungs:DIMINISHED BS BILATERAL WITH WHEEZING, Symmetrical chest expansion, good air entry bilaterally GI/Abdomen: soft, NTND, good bowel sounds, no guarding or rebound /Bladder: no suprapubic tenderness, no CVA or paraspinal tenderness Extermity/Skin: no c/c/e, no obvious rash MSK: FROM x 4 Neuro: CN 2-12 grossly intact, no new focal deficits Psych: calm Subjective Date of service: 10/26/19 Principal diagnosis: Heart Failure Interval history: patient seen and examined breathing better tolerating diet, BG improving no chest pain Need home O2 Objective - Constitutional Vitals: Vital Signs - 12hr 10/26/19 10/26/19 10/26/19 08:00 08:05 08:25 Pulse Rate 96 H Pulse Rate [ 86 Throughout] Respiratory Rate Respiratory 18 Rate [ Throughout] Blood Pressure 134/51 O2 Sat by Pulse 96 Oximetry 10/26/19 10/26/19 10/26/19 08:32 08:40 10:00 Pulse Rate 83 82 Pulse Rate [ Throughout] Respiratory 18 18 Rate Respiratory Rate [ Throughout] Blood Pressure 135/68 O2 Sat by Pulse 92 92 Oximetry 10/26/19 14:00 Pulse Rate Pulse Rate [ 86 Throughout] Respiratory Rate Respiratory 18 Rate [ Throughout] Blood Pressure O2 Sat by Pulse Oximetry - Labs CBC & Chem 7: 10/23/19 06:27 10/26/19 09:13 Labs: Abnormal lab results 10/25/19 10/25/19 10/26/19 Range/Units 16:34 21:07 08:32 Potassium (3.6-5.0) mmol/L Chloride (98-107) mmol/L Carbon Dioxide (22-30) mmol/L BUN (7-17) mg/dL Creatinine (0.7-1.2) mg/dL Glucose (65-100) mg/dL POC Glucose 461 H 391 H 282 H (70-105) 10/26/19 10/26/19 Range/Units 09:13 12:42 Potassium 3.4 L (3.6-5.0) mmol/L Chloride 85.5 L (98-107) mmol/L Carbon Dioxide 36 H (22-30) mmol/L BUN 21 H (7-17) mg/dL Creatinine 0.5 L (0.7-1.2) mg/dL Glucose 353 H (65-100) mg/dL POC Glucose 277 H (70-105)
[2019-10-26] MEDS: FUROSEMIDE 40 MG TAB PO SCH (17:17)
[2019-10-26] MEDS: guaiFENesin DM 200/20 MG ORAL LIQD 10 ML PO PRN (21:40)
--- NOTE | 2019-10-26 22:06 | Progress Note ---
Assessment and Plan Imp: 1. A/C diastolic CHF 2. Pulm HTN 3. Morbid obesity -> probable MARIA DE JESUS/OHS 4. COPD exac. 5. Nicotine dependence, cigarettes Rec: 1. Diuresis as per cardiology 2. Prednisone 40mg daily and d/c on tapering dose 3. Stop smoking 4. Cont. current nebs 5. Weight loss 6. Outpatient PSG 7. Full PFTs 8. Home O2 if she qualifies 9. She refused ABG 10. Can go home pulm-[place]bert and f/u with us in 1-2 weeks Plan of care reviewed w/ patient, she understands/agrees Subjective Date of service: 10/26/19 Principal diagnosis: Heart Failure Interval history: No events. Awake, alert. On 2L NC. Poor historian. SOB better. Off Lasix drip. Active Medications Acetaminophen (Tylenol) 650 mg PO Q4H PRN PRN Reason: Pain MILD(1-3)/Fever >100.5/HORN Last Admin: 10/23/19 11:28 Dose: 650 mg Documented by: Albuterol (Proventil) 2.5 mg IH Q4HRT PRN PRN Reason: Shortness Of Breath Last Admin: 10/20/19 03:38 Dose: 2.5 mg Documented by: Albuterol/Ipratropium (Duoneb *Not For Prn Use*) 1 ampul IH Q6HRT [facility] Last Admin: 10/26/19 21:08 Dose: 1 ampul Documented by: Aspirin (Baby Aspirin) 81 mg PO QDAY [facility] Last Admin: 10/26/19 09:43 Dose: 81 mg Documented by: Atorvastatin Calcium (Lipitor) 40 mg PO QHS [facility] Last Admin: 10/26/19 21:40 Dose: 40 mg Documented by: Budesonide (Pulmicort) 0.5 mg IH Q12HRT [facility] Last Admin: 10/26/19 21:08 Dose: 0.5 mg Documented by: Furosemide (Lasix) 40 mg PO 0600,1800 [facility] Last Admin: 10/26/19 17:17 Dose: 40 mg Documented by: Guaifenesin (Guaifenesin Dm Syrup) 10 ml PO Q6H PRN PRN Reason: Cough Last Admin: 10/26/19 21:40 Dose: 10 ml Documented by: Heparin Sodium (Porcine) (Heparin) 5,000 unit SUB-Q Q12HR [facility] Last Admin: 10/26/19 21:40 Dose: 5,000 unit Documented by: Hydralazine HCl (Apresoline) 10 mg IV Q6H PRN PRN Reason: Hypertension Insulin Human Isoph/Insulin Regular (Humulin 70/30) 30 unit SUB-Q BIDDIAB [facility] Last Admin: 10/26/19 17:16 Dose: 30 unit Documented by: Insulin Human Lispro (Humalog) 0 [facility]; Protocol Last Admin: 10/26/19 21:40 Dose: 10 unit Documented by: Metoprolol Tartrate (Metoprolol) 12.5 mg PO BID@0800,1700 [facility] Last Admin: 10/26/19 17:17 Dose: 12.5 mg Documented by: Nifedipine (Procardia Xl) 90 mg PO QDAY [facility] Last Admin: 10/26/19 09:43 Dose: 90 mg Documented by: Ondansetron HCl (Zofran) 4 mg IV Q8H PRN PRN Reason: Nausea And Vomiting Prednisone (Deltasone) 40 mg PO QDAY [facility] Last Admin: 10/26/19 09:43 Dose: 40 mg Documented by: Sodium Chloride (Sodium Chloride Flush Syringe 10 Ml) 10 ml IV BID [facility] Last Admin: 10/26/19 21:48 Dose: 10 ml Documented by: Sodium Chloride (Sodium Chloride Flush Syringe 10 Ml) 10 ml IV PRN PRN PRN Reason: LINE FLUSH Last Admin: 10/16/19 05:55 Dose: 10 ml Documented by: Objective Vital Signs - 12hr 10/26/19 10/26/19 10/26/19 12:32 14:00 16:59 Temperature 98.2 F Pulse Rate 72 74 Pulse Rate [ 86 Throughout] Respiratory 18 Rate Respiratory 18 Rate [ Throughout] Blood Pressure 119/62 141/71 O2 Sat by Pulse 90 92 Oximetry 10/26/19 10/26/19 10/26/19 17:17 19:36 21:10 Temperature 98.2 F Pulse Rate 82 76 Pulse Rate [ 89 Throughout] Respiratory 18 Rate Respiratory 18 Rate [ Throughout] Blood Pressure 141/71 125/63 O2 Sat by Pulse 95 97 Oximetry Constitutional: no acute distress, alert, other (obese) Eyes: non-icteric Effort: normal Ascultation: Bilateral: clear Cardiovascular: regular rate and rhythm (no mrg) Gastrointestinal: normoactive bowel sounds, soft, non-tender Integumentary: normal Extremities: pink and warm, edema (2+ bilateral LE edema) Neurologic: normal mental status, non-focal exam, pupils equal and round Psychiatric: mood appropriate, affect normal CBC and BMP: 10/23/19 06:27 10/26/19 09:13 ABG, PT/INR, D-dimer: PT/INR, D-dimer PT 12.6 Sec. (12.2-14.9) 10/23/19 06:27 INR 0.93 (0.87-1.13) 10/23/19 06:27 Abnormal lab findings: Abnormal Labs 10/14/19 10/14/19 10/14/19 10:54 16:02 16:02 RBC 5.32 H Hgb 14.4 H MCH 27 L RDW 15.6 H [place] % (Auto) 9.4 H [place] # Sodium 136 L Potassium Chloride 94.0 L Carbon Dioxide BUN Creatinine 0.5 L Glucose 372 H POC Glucose 280 H Hemoglobin A1c Albumin 3.4 L LDL Cholesterol Direct 10/14/19 10/15/19 10/15/19 21:55 06:58 07:41 RBC Hgb MCH RDW [place] % (Auto) [place] # Sodium Potassium Chloride 95.2 L Carbon Dioxide BUN Creatinine 0.5 L Glucose 310 H POC Glucose 386 H 314 H Hemoglobin A1c Albumin LDL Cholesterol Direct 10/15/19 10/15/19 10/15/19 12:42 15:36 22:07 RBC Hgb MCH RDW [place] % (Auto) [place] # Sodium Potassium Chloride Carbon Dioxide BUN Creatinine Glucose POC Glucose 291 H 373 H 222 H Hemoglobin A1c Albumin LDL Cholesterol Direct 10/16/19 10/16/19 10/16/19 07:15 07:15 07:55 RBC Hgb MCH RDW [place] % (Auto) [place] # Sodium Potassium Chloride Carbon Dioxide BUN Creatinine Glucose POC Glucose 260 H Hemoglobin A1c 11.7 H Albumin LDL Cholesterol Direct 133 H 10/16/19 10/16/19 10/16/19 12:11 17:01 21:12 RBC Hgb MCH RDW [place] % (Auto) [place] # Sodium Potassium Chloride Carbon Dioxide BUN Creatinine Glucose POC Glucose 284 H 316 H 175 H Hemoglobin A1c Albumin LDL Cholesterol Direct 10/17/19 10/17/19 10/17/19 08:20 12:49 17:59 RBC Hgb MCH RDW [place] % (Auto) [place] # Sodium Potassium Chloride Carbon Dioxide BUN Creatinine Glucose POC Glucose 227 H 331 H 292 H Hemoglobin A1c Albumin LDL Cholesterol Direct 10/17/19 10/18/19 10/18/19 21:00 04:58 04:58 RBC 5.24 H Hgb MCH 27 L RDW 15.4 H [place] % (Auto) [place] # Sodium Potassium Chloride 91.3 L Carbon Dioxide BUN Creatinine 0.5 L Glucose 373 H POC Glucose 316 H Hemoglobin A1c Albumin LDL Cholesterol Direct 10/18/19 10/18/19 10/18/19 11:28 16:59 22:15 RBC Hgb MCH RDW [place] % (Auto) [place] # Sodium Potassium Chloride Carbon Dioxide BUN Creatinine Glucose POC Glucose 315 H 383 H 410 H Hemoglobin A1c Albumin LDL Cholesterol Direct 10/19/19 10/19/19 10/19/19 05:36 07:56 12:39 RBC Hgb MCH RDW [place] % (Auto) [place] # Sodium Potassium Chloride 89.9 L Carbon Dioxide 36 H BUN 21 H Creatinine 0.5 L Glucose 404 H POC Glucose 290 H 285 H Hemoglobin A1c Albumin LDL Cholesterol Direct 10/19/19 10/19/19 10/20/19 16:34 21:24 08:08 RBC Hgb MCH RDW [place] % (Auto) [place] # Sodium Potassium Chloride Carbon Dioxide BUN Creatinine Glucose POC Glucose 458 H 349 H 317 H Hemoglobin A1c Albumin LDL Cholesterol Direct 10/20/19 10/20/19 10/20/19 11:17 16:11 21:39 RBC Hgb MCH RDW [place] % (Auto) [place] # Sodium Potassium Chloride Carbon Dioxide BUN Creatinine Glucose POC Glucose 344 H 484 H 488 H Hemoglobin A1c Albumin LDL Cholesterol Direct 10/21/19 10/21/19 10/21/19 07:47 11:52 17:36 RBC Hgb MCH RDW [place] % (Auto) [place] # Sodium Potassium Chloride Carbon Dioxide BUN Creatinine Glucose POC Glucose 269 H 230 H 337 H Hemoglobin A1c Albumin LDL Cholesterol Direct 10/21/19 10/22/19 10/22/19 21:11 08:14 08:30 RBC 5.04 H Hgb MCH 27 L RDW [place] % (Auto) [place] # Sodium Potassium Chloride Carbon Dioxide BUN Creatinine Glucose POC Glucose 356 H 272 H Hemoglobin A1c Albumin LDL Cholesterol Direct 10/22/19 10/22/19 10/22/19 08:30 12:05 16:19 RBC Hgb MCH RDW [place] % (Auto) [place] # Sodium Potassium 3.3 L Chloride 86.5 L Carbon Dioxide 37 H BUN 18 H Creatinine 0.5 L Glucose 292 H POC Glucose 263 H 331 H Hemoglobin A1c Albumin LDL Cholesterol Direct 10/22/19 10/23/19 10/23/19 21:13 00:27 06:18 RBC 5.10 H Hgb MCH 27 L RDW [place] % (Auto) 11.7 H [place] # 1.0 H Sodium Potassium Chloride Carbon Dioxide BUN Creatinine Glucose POC Glucose 355 H 256 H Hemoglobin A1c Albumin LDL Cholesterol Direct 10/23/19 10/23/19 10/23/19 06:27 06:27 06:27 RBC 5.22 H Hgb MCH 27 L RDW [place] % (Auto) [place] # Sodium Potassium Chloride 89.2 L Carbon Dioxide 34 H BUN 18 H Creatinine 0.4 L Glucose 268 H POC Glucose Hemoglobin A1c Albumin 3.4 L LDL Cholesterol Direct 10/23/19 10/23/19 10/23/19 11:45 16:32 21:31 RBC Hgb MCH RDW [place] % (Auto) [place] # Sodium Potassium Chloride Carbon Dioxide BUN Creatinine Glucose POC Glucose 311 H 475 H 489 H Hemoglobin A1c Albumin LDL Cholesterol Direct 10/24/19 10/24/19 10/24/19 00:47 07:55 12:06 RBC Hgb MCH RDW [place] % (Auto) [place] # Sodium 135 L Potassium Chloride 82.7 L Carbon Dioxide 39 H BUN 22 H Creatinine 0.6 L Glucose 515 H* POC Glucose 324 H 339 H Hemoglobin A1c Albumin LDL Cholesterol Direct 10/24/19 10/24/19 10/25/19 16:02 21:22 08:21 RBC Hgb MCH RDW [place] % (Auto) [place] # Sodium Potassium Chloride Carbon Dioxide BUN Creatinine Glucose POC Glucose 346 H 375 H 287 H Hemoglobin A1c Albumin LDL Cholesterol Direct 10/25/19 10/25/19 10/25/19 11:50 16:34 21:07 RBC Hgb MCH RDW [place] % (Auto) [place] # Sodium Potassium Chloride Carbon Dioxide BUN Creatinine Glucose POC Glucose 323 H 461 H 391 H Hemoglobin A1c Albumin LDL Cholesterol Direct 10/26/19 10/26/19 10/26/19 08:32 09:13 12:42 RBC Hgb MCH RDW [place] % (Auto) [place] # Sodium Potassium 3.4 L Chloride 85.5 L Carbon Dioxide 36 H BUN 21 H Creatinine 0.5 L Glucose 353 H POC Glucose 282 H 277 H Hemoglobin A1c Albumin LDL Cholesterol Direct 10/26/19 10/26/19 17:10 20:41 RBC Hgb MCH RDW [place] % (Auto) [place] # Sodium Potassium Chloride Carbon Dioxide BUN Creatinine Glucose POC Glucose 394 H 461 H Hemoglobin A1c Albumin LDL Cholesterol Direct Chest x-ray: report reviewed, image reviewed
[2019-10-27] MEDS: IPRATROPIUM/ALBUTEROL SULFATE 3 ML AMPUL.NEB IH SCH ×2 (03:13→10:35)
[2019-10-27] MEDS: FUROSEMIDE 40 MG TAB PO SCH (05:50)
--- NOTE | 2019-10-27 09:09 | Progress Note ---
Assessment and Plan Acute heart failure with a preserved ejection fraction EF 55-60% by echo this admission abnormal thallium stress test that showed a large mostly fixed lateral wall defect of prior myocardial infarction. Cath revealing severely elevated filling pressures with a PWP 38 mm Hg, LVEDP 47 mm Hg, PAP 80/36/56, RAP 31 mm Hg Coronary artery disease with 80% mid RCA and 50-60% mid LAD stenosis COPD exacerbation Essential hypertension Type 2 diabetes mellitus Chronic lymphedema Obesity Tobacco abuse Noncompliant with medications and outpatient followup Recommendations: Continue po lasix and afterload reduction Patient may go home cardiac lambert Stressed fluid and salt restriction Follow-up Nov 03, 2019 at [address] Leary in [place] office Subjective Date of service: 10/27/19 Principal diagnosis: Heart Failure Interval history: Patient is feeling better this morning She denies chest pain or shortness of breath Objective Vital Signs Temp Pulse Pulse Resp Resp BP Pulse Ox 10/27/19 04:23 98.0 F 92 H 18 137/56 95 10/27/19 03:15 84 18 10/26/19 23:51 97 10/26/19 23:08 98.3 F 99 H 18 147/64 92 10/26/19 21:10 89 18 97 10/26/19 19:48 79 10/26/19 19:36 98.2 F 76 18 125/63 95 10/26/19 17:17 82 141/71 10/26/19 16:59 74 141/71 92 10/26/19 14:00 86 18 10/26/19 12:32 98.2 F 72 18 119/62 90 10/26/19 10:00 82 - Physical Examination General: No Apparent Distress HEENT: Positive: PERRL Neck: Positive: trachea midline Cardiac: Positive: Reg Rate and Rhythm Lungs: Positive: Rales (left basilar rales) Neuro: Positive: Grossly Intact Abdomen: Positive: Unremarkable Skin: Positive: Clear Extremities: Present: Other (Chronic lymphedema). Absent: edema - Labs and Meds Comprehensive Metabolic Panel 10/26/19 Range/Units 09:13 Sodium 138 (137-145) mmol/L Potassium 3.4 L (3.6-5.0) mmol/L Chloride 85.5 L (98-107) mmol/L Carbon Dioxide 36 H (22-30) mmol/L BUN 21 H (7-17) mg/dL Creatinine 0.5 L (0.7-1.2) mg/dL Glucose 353 H (65-100) mg/dL Calcium 9.3 (8.4-10.2) mg/dL
[2019-10-27] MEDS ORDERED: POTASSIUM CHLORIDE ER 20 MEQ TAB PO NR (09:22)
[2019-10-27] MEDS: HEPARIN 5,000 UNIT/1 ML VIAL SUB-Q SCH (10:03)
[2019-10-27] MEDS: METOPROLOL TARTRATE 25 MG TAB PO SCH (10:03)
[2019-10-27] MEDS: NIFEdipine XL 90 MG TAB PO SCH (10:05)
[2019-10-27] MEDS: ASPIRIN 81 MG TAB CHEW PO SCH (10:05)
[2019-10-27] MEDS: predniSONE 20 MG TAB PO SCH (10:05)
[2019-10-27] MEDS: INSULIN LISPRO 100 UNIT/ML SUB-Q SCH ×2 (10:17→13:42)
[2019-10-27] MEDS: INSULIN NPH/REGULAR 70/30 INJ SUB-Q SCH (10:23)
[2019-10-27] MEDS: BUDESONIDE 0.5 MG/2 ML NEBU IH SCH (10:35)
[2019-10-27 12:08] VITALS: BP 124/60
--- NOTE | 2019-10-27 12:11 | Progress Note ---
Assessment and Plan Imp: 1. A/C diastolic CHF 2. Pulm HTN 3. Morbid obesity -> probable MARIA DE JESUS/OHS 4. COPD exac. 5. Nicotine dependence, cigarettes Rec: 1. Diuresis as per cardiology 2. Prednisone 40mg daily and d/c on tapering dose 3. Stop smoking 4. Cont. current nebs 5. Weight loss 6. Outpatient PSG 7. Full PFTs 8. Home O2 if she qualifies 9. She refused ABG 10. Can go home pulm-lambert and f/u with us in 1-2 weeks; please give her our office/contact information Plan of care reviewed w/ patient, she understands/agrees Subjective Date of service: 10/27/19 Principal diagnosis: Heart Failure Interval history: No events. Awake, alert. On 2L NC. Poor historian. SOB better. No new complaints. Active Medications Acetaminophen (Tylenol) 650 mg PO Q4H PRN PRN Reason: Pain MILD(1-3)/Fever >100.5/HORN Last Admin: 10/23/19 11:28 Dose: 650 mg Documented by: Albuterol (Proventil) 2.5 mg IH Q4HRT PRN PRN Reason: Shortness Of Breath Last Admin: 10/20/19 03:38 Dose: 2.5 mg Documented by: Albuterol/Ipratropium (Duoneb *Not For Prn Use*) 1 ampul IH Q6HRT [facility] Last Admin: 10/27/19 10:35 Dose: 1 ampul Documented by: Aspirin (Baby Aspirin) 81 mg PO QDAY [facility] Last Admin: 10/27/19 10:05 Dose: 81 mg Documented by: Atorvastatin Calcium (Lipitor) 40 mg PO QHS [facility] Last Admin: 10/26/19 21:40 Dose: 40 mg Documented by: Budesonide (Pulmicort) 0.5 mg IH Q12HRT [facility] Last Admin: 10/27/19 10:35 Dose: 0.5 mg Documented by: Furosemide (Lasix) 40 mg PO 0600,1800 [facility] Last Admin: 10/27/19 05:50 Dose: 40 mg Documented by: Guaifenesin (Guaifenesin Dm Syrup) 10 ml PO Q6H PRN PRN Reason: Cough Last Admin: 10/26/19 21:40 Dose: 10 ml Documented by: Heparin Sodium (Porcine) (Heparin) 5,000 unit SUB-Q Q12HR [facility] Last Admin: 10/27/19 10:03 Dose: 5,000 unit Documented by: Hydralazine HCl (Apresoline) 10 mg IV Q6H PRN PRN Reason: Hypertension Insulin Human Isoph/Insulin Regular (Humulin 70/30) 30 unit SUB-Q BIDDIAB [facility] Last Admin: 10/27/19 10:23 Dose: 30 unit Documented by: Insulin Human Lispro (Humalog) 0 unit SUB-Q ACHS [facility]; Protocol Last Admin: 10/27/19 10:17 Dose: 8 unit Documented by: Metoprolol Tartrate (Metoprolol) 12.5 mg PO BID@0800,1700 [facility] Last Admin: 10/27/19 10:03 Dose: 12.5 mg Documented by: Nifedipine (Procardia Xl) 90 mg PO QDAY [facility] Last Admin: 10/27/19 10:05 Dose: 90 mg Documented by: Ondansetron HCl (Zofran) 4 mg IV Q8H PRN PRN Reason: Nausea And Vomiting Prednisone (Deltasone) 40 mg PO QDAY [facility] Last Admin: 10/27/19 10:05 Dose: 40 mg Documented by: Sodium Chloride (Sodium Chloride Flush Syringe 10 Ml) 10 ml IV BID [facility] Last Admin: 10/27/19 10:05 Dose: 10 ml Documented by: Sodium Chloride (Sodium Chloride Flush Syringe 10 Ml) 10 ml IV PRN PRN PRN Reason: LINE FLUSH Last Admin: 10/16/19 05:55 Dose: 10 ml Documented by: Objective Vital Signs - 12hr 10/27/19 10/27/19 10/27/19 03:15 04:23 09:04 Temperature 98.0 F 97.0 F L Pulse Rate 92 H 83 Pulse Rate [ 84 Throughout] Respiratory 18 20 Rate Respiratory 18 Rate [ Throughout] Blood Pressure 137/56 144/68 O2 Sat by Pulse 95 95 Oximetry 10/27/19 10/27/19 10:03 12:08 Temperature 98.2 F Pulse Rate 83 70 Pulse Rate [ Throughout] Respiratory 20 Rate Respiratory Rate [ Throughout] Blood Pressure 144/68 124/60 O2 Sat by Pulse 94 Oximetry Constitutional: no acute distress, alert, other (obese) Eyes: non-icteric Effort: normal Ascultation: Bilateral: clear Cardiovascular: regular rate and rhythm (no mrg) Gastrointestinal: normoactive bowel sounds, soft, non-tender Integumentary: normal Extremities: pink and warm, edema (2+ bilateral LE edema) Neurologic: normal mental status, non-focal exam, pupils equal and round Psychiatric: mood appropriate, affect normal CBC and BMP: 10/23/19 06:27 10/26/19 09:13 ABG, PT/INR, D-dimer: PT/INR, D-dimer PT 12.6 Sec. (12.2-14.9) 10/23/19 06:27 INR 0.93 (0.87-1.13) 10/23/19 06:27 Abnormal lab findings: Abnormal Labs 10/14/19 10/14/19 10/14/19 10:54 16:02 16:02 RBC 5.32 H Hgb 14.4 H MCH 27 L RDW 15.6 H Chambers % (Auto) 9.4 H Chambers # Sodium 136 L Potassium Chloride 94.0 L Carbon Dioxide BUN Creatinine 0.5 L Glucose 372 H POC Glucose 280 H Hemoglobin A1c Albumin 3.4 L LDL Cholesterol Direct 10/14/19 10/15/19 10/15/19 21:55 06:58 07:41 RBC Hgb MCH RDW Chambers % (Auto) Chambers # Sodium Potassium Chloride 95.2 L Carbon Dioxide BUN Creatinine 0.5 L Glucose 310 H POC Glucose 386 H 314 H Hemoglobin A1c Albumin LDL Cholesterol Direct 10/15/19 10/15/19 10/15/19 12:42 15:36 22:07 RBC Hgb MCH RDW Chambers % (Auto) Chambers # Sodium Potassium Chloride Carbon Dioxide BUN Creatinine Glucose POC Glucose 291 H 373 H 222 H Hemoglobin A1c Albumin LDL Cholesterol Direct 10/16/19 10/16/19 10/16/19 07:15 07:15 07:55 RBC Hgb MCH RDW Chambers % (Auto) Chambers # Sodium Potassium Chloride Carbon Dioxide BUN Creatinine Glucose POC Glucose 260 H Hemoglobin A1c 11.7 H Albumin LDL Cholesterol Direct 133 H 10/16/19 10/16/19 10/16/19 12:11 17:01 21:12 RBC Hgb MCH RDW Chambers % (Auto) Chambers # Sodium Potassium Chloride Carbon Dioxide BUN Creatinine Glucose POC Glucose 284 H 316 H 175 H Hemoglobin A1c Albumin LDL Cholesterol Direct 10/17/19 10/17/19 10/17/19 08:20 12:49 17:59 RBC Hgb MCH RDW Chambers % (Auto) Chambers # Sodium Potassium Chloride Carbon Dioxide BUN Creatinine Glucose POC Glucose 227 H 331 H 292 H Hemoglobin A1c Albumin LDL Cholesterol Direct 10/17/19 10/18/19 10/18/19 21:00 04:58 04:58 RBC 5.24 H Hgb MCH 27 L RDW 15.4 H Chambers % (Auto) Chambers # Sodium Potassium Chloride 91.3 L Carbon Dioxide BUN Creatinine 0.5 L Glucose 373 H POC Glucose 316 H Hemoglobin A1c Albumin LDL Cholesterol Direct 10/18/19 10/18/19 10/18/19 11:28 16:59 22:15 RBC Hgb MCH RDW Chambers % (Auto) Chambers # Sodium Potassium Chloride Carbon Dioxide BUN Creatinine Glucose POC Glucose 315 H 383 H 410 H Hemoglobin A1c Albumin LDL Cholesterol Direct 10/19/19 10/19/19 10/19/19 05:36 07:56 12:39 RBC Hgb MCH RDW Chambers % (Auto) Chambers # Sodium Potassium Chloride 89.9 L Carbon Dioxide 36 H BUN 21 H Creatinine 0.5 L Glucose 404 H POC Glucose 290 H 285 H Hemoglobin A1c Albumin LDL Cholesterol Direct 10/19/19 10/19/19 10/20/19 16:34 21:24 08:08 RBC Hgb MCH RDW Chambers % (Auto) Chambers # Sodium Potassium Chloride Carbon Dioxide BUN Creatinine Glucose POC Glucose 458 H 349 H 317 H Hemoglobin A1c Albumin LDL Cholesterol Direct 10/20/19 10/20/19 10/20/19 11:17 16:11 21:39 RBC Hgb MCH RDW Chambers % (Auto) Chambers # Sodium Potassium Chloride Carbon Dioxide BUN Creatinine Glucose POC Glucose 344 H 484 H 488 H Hemoglobin A1c Albumin LDL Cholesterol Direct 10/21/19 10/21/19 10/21/19 07:47 11:52 17:36 RBC Hgb MCH RDW Chambers % (Auto) Chambers # Sodium Potassium Chloride Carbon Dioxide BUN Creatinine Glucose POC Glucose 269 H 230 H 337 H Hemoglobin A1c Albumin LDL Cholesterol Direct 10/21/19 10/22/19 10/22/19 21:11 08:14 08:30 RBC 5.04 H Hgb MCH 27 L RDW Chambers % (Auto) Chambers # Sodium Potassium Chloride Carbon Dioxide BUN Creatinine Glucose POC Glucose 356 H 272 H Hemoglobin A1c Albumin LDL Cholesterol Direct 12/10/22/19 10/22/19 08:30 12:05 16:19 RBC Hgb MCH RDW Chambers % (Auto) Chambers # Sodium Potassium 3.3 L Chloride 86.5 L Carbon Dioxide 37 H BUN 18 H Creatinine 0.5 L Glucose 292 H POC Glucose 263 H 331 H Hemoglobin A1c Albumin LDL Cholesterol Direct 10/22/19 10/23/19 10/23/19 21:13 00:27 06:18 RBC 5.10 H Hgb MCH 27 L RDW Chambers % (Auto) 11.7 H Chambers # 1.0 H Sodium Potassium Chloride Carbon Dioxide BUN Creatinine Glucose POC Glucose 355 H 256 H Hemoglobin A1c Albumin LDL Cholesterol Direct 10/23/19 10/23/19 10/23/19 06:27 06:27 06:27 RBC 5.22 H Hgb MCH 27 L RDW Chambers % (Auto) Chambers # Sodium Potassium Chloride 89.2 L Carbon Dioxide 34 H BUN 18 H Creatinine 0.4 L Glucose 268 H POC Glucose Hemoglobin A1c Albumin 3.4 L LDL Cholesterol Direct 10/23/19 10/23/19 10/23/19 11:45 16:32 21:31 RBC Hgb MCH RDW Chambers % (Auto) Chambers # Sodium Potassium Chloride Carbon Dioxide BUN Creatinine Glucose POC Glucose 311 H 475 H 489 H Hemoglobin A1c Albumin LDL Cholesterol Direct 10/24/19 10/24/19 10/24/19 00:47 07:55 12:06 RBC Hgb MCH RDW Chambers % (Auto) Chambers # Sodium 135 L Potassium Chloride 82.7 L Carbon Dioxide 39 H BUN 22 H Creatinine 0.6 L Glucose 515 H* POC Glucose 324 H 339 H Hemoglobin A1c Albumin LDL Cholesterol Direct 10/24/19 10/24/19 10/25/19 16:02 21:22 08:21 RBC Hgb MCH RDW Chambers % (Auto) Chambers # Sodium Potassium Chloride Carbon Dioxide BUN Creatinine Glucose POC Glucose 346 H 375 H 287 H Hemoglobin A1c Albumin LDL Cholesterol Direct 10/25/19 10/25/19 10/25/19 11:50 16:34 21:07 RBC Hgb MCH RDW Chambers % (Auto) Chambers # Sodium Potassium Chloride Carbon Dioxide BUN Creatinine Glucose POC Glucose 323 H 461 H 391 H Hemoglobin A1c Albumin LDL Cholesterol Direct 10/26/19 10/26/19 10/26/19 08:32 09:13 12:42 RBC Hgb MCH RDW Chambers % (Auto) Chambers # Sodium Potassium 3.4 L Chloride 85.5 L Carbon Dioxide 36 H BUN 21 H Creatinine 0.5 L Glucose 353 H POC Glucose 282 H 277 H Hemoglobin A1c Albumin LDL Cholesterol Direct 10/26/19 10/26/19 10/27/19 17:10 20:41 10:22 RBC Hgb MCH RDW Chambers % (Auto) Chambers # Sodium Potassium Chloride Carbon Dioxide BUN Creatinine Glucose POC Glucose 394 H 461 H 345 H Hemoglobin A1c Albumin LDL Cholesterol Direct Chest x-ray: report reviewed, image reviewed
--- NOTE | 2019-10-27 13:45 | Discharge Summary ---
Providers - Providers Date of Admission: 10/14/19 18:58 Date of discharge: 10/27/19 Attending physician: MAJO SOLORZANO 10/14/19 20:50 Consult to Physician [CONS] Routine Comment: Consulting Provider: MARIA M GUTIERREZ Physician Instructions: Reason For Exam: chf 10/17/19 17:34 Consult to Physician [CONS] Routine Comment: Consulting Provider: ELAINA DAWKINS Physician Instructions: Reason For Exam: Bronchospasm Primary care physician: KEYPUNCH OPERATOR Hospitalization Condition: Critical Pertinent studies: Chest CTA MPS stress stress 2-D echocardiogram Cardiac cath Hospital course: Patient is a 54 yo woman with a history of MO, Obesity Hypoventilation Syndrome, HTN, DM, Lymphedema, Asthma presents to ED for evaluationof shortness of breath over the past 4 days with worsening symptoms over the past 2 days. Pt acknowledges decreased exercise tolerance, Orthopnea/PND, dypsnea at rest, dypsnea on exertion, leg edema. Noted to be in acute on chronic hypoxic respiratory failure requiring BiPAP, now weaned off. Acute diastolic congestive heart failure, managed appropriately. Evaluated by cardiology, medications optimized, stress test ordered for 10/17/19 but unable to complete due to bronchospasm. Cardiology has requested Pulm consultation and change the stress test medication. Uncontrolled blood sugars secondary to steroid use, increased Insulin. Wednesday night, patient had 26 beat run of NSVT and acute bronchospasm unable to do stress test on Wednesday, started IV steroid, which helped, dobutamine stess test is abnormal on Wednesday and LHC planned for per Cardiology. Patient went down for Cardiac catherization on but was unable to lay flat due to persistent coughing and sob, so Cardiac catherization re-scheduled until Wednesday per Rod Puller. Pulmonology is following for lung disease, weaning down steroids. Patient had diagnostic LHC today which showed extremely elevated filling pressures with a PWP 38 mm Hg, LVEDP 47 mm Hg, PAP 80/36/56, RAP 31 mm Hg and non obstructive Coronary artery disease. d/c when clears by cardiology. Discharge diagnosis and Mx: /Acute diastolic CHF (congestive heart failure) input output monitoring, Cardiology following, low-sodium diet, fluid restriction, s/p lasix drip then changed to po dose /Acute hypoxic respiratory failure secondary to obesity hypoventilation syndrome/MARIA DE JESUS/acute diastolic dysfunction Continue current management she dropped to 88% at rest, need home O2 /-Acute Asthma exacerbation treated with IV steroids consult Pulmonology, input noted /Obesity hypoventilation syndrome oxygen, nebs, titrate O2 sats to more than 90% NIPPV as clinically indicated, pulse oximetry Titrate O2 sats to more than 90% Outpatient sleep study to rule out obstructive sleep apnea CPAP/BiPAP at night and as needed /Type II diabetes mellitus; uncontrolled Accu check, sliding scale coverage , ADA diet Insulin as needed , oral hypoglycemics Added long-acting insulin - cont to adjust dosage, hypoglycemia protocol /Coronary artery disease - Per cardiology recent notes non-obstructive - cont medical Mx for now /HTN (hypertension); moderate control Continue current antihypertensives, PRN medications /Morbid obesity; BMI >50 Dietary modification exercise as tolerated and weight reduction Patient may benefit from evaluation by bariatric team outpatient For weight reduction as outpatient when medically stable /DVT prophylaxis SCD to BLE while in bed, prophylactic lovenox. Disposition: home with home o2 Hospitalist Physical Gen: WDWN, NAD, Awake, Alert, Orientated HEENT: NCAT, EOMI, PERRL, OP Clear Neck: supple, no adenopathy, no thyromegaly, no JVD CVS/Heart: RRR, normal S1S2, pulses present bilaterally Chest/Lungs:DIMINISHED BS BILATERAL WITH WHEEZING, Symmetrical chest expansion, good air entry bilaterally GI/Abdomen: soft, NTND, good bowel sounds, no guarding or rebound /Bladder: no suprapubic tenderness, no CVA or paraspinal tenderness Extermity/Skin: no c/c/e, no obvious rash MSK: FROM x 4 Neuro: CN 2-12 grossly intact, no new focal deficits Psych: calm Disposition: DC/[place]-06 HOME UNDER HOME [facility] Time spent for discharge: 34 minutes Core Measure Documentation - Palliative Care Palliative Care/ Comfort Measures: Not Applicable - Core Measures Any of the following diagnoses?: heart failure - Heart Failure Discharge Requirements TIAGO/ARB for LVSD if EF <40%: Yes Beta dhaval at discharge: Yes Exam - Constitutional Vitals: Temp Pulse Resp BP Pulse Ox 98.2 F 70 20 124/60 94 10/27/19 12:08 10/27/19 12:08 10/27/19 12:08 10/27/19 12:08 10/27/19 12:08 Plan Activity: advance as tolerated Weight Bearing Status: Weight Bear as Tolerated Diet: low fat, low salt, diabetic Special Instructions: record daily weights, record blood sugar diary Follow up with: PRIMARY CARE, [Primary Care Provider] - 3-5 Days Prescriptions: AtorvaSTATin [Lipitor] 40 mg PO QHS #30 tablet Aspirin [Aspirin BABY CHEW TAB] 81 mg PO QDAY #30 tab.chew predniSONE [Deltasone] 40 mg PO QDAY #7 tablet Ipratropium/Albuterol Sulfate [DUONEB *Not for PRN Use*] 1 ampul IH Q6HRT PRN #30 ampul.neb PRN Reason: Shortness Of Breath Furosemide [Lasix TAB] 40 mg PO 0600,1800 #60 tablet Metoprolol [Lopressor TAB] 12.5 mg PO BID@0800,1700 #30 tablet Insulin NPH/Regular [NovoLIN 70/30] 30 unit SUB-Q BIDDIAB #10 ml NIFEdipine XL [Procardia Xl] 90 mg PO QDAY #30 tablet Budesonide/Formoterol Fumarate [Symbicort 160-4.5 Mcg Inhaler] 10.2 gm IH BID #1 hfa.aer.ad
== END 2019-10-27 15:20 | disposition home health service (06) | DRG 286 ==
LOC: ED 10:34 → 4A 18:58
PROVIDERS: ADMIT Internal Medicine; ATTEND Internal Medicine
PROC: 4A023N8 Measurement of Cardiac Sampling and Pressure, Bilateral, Percutaneous Approach (ICD-10-PCS; principal; 2019-10-23)
PROC: B2111ZZ Fluoroscopy of Multiple Coronary Arteries using Low Osmolar Contrast (ICD-10-PCS; 2019-10-23)
PROC: B2151ZZ Fluoroscopy of Left Heart using Low Osmolar Contrast (ICD-10-PCS; 2019-10-23)
DX: I11.0 Hypertensive heart disease with heart failure (principal); J96.21 Acute and chronic respiratory failure with hypoxia; E66.2 Morbid (severe) obesity with alveolar hypoventilation; Z68.43 Body mass index [BMI] 50.0-59.9, adult; J45.901 Unspecified asthma with (acute) exacerbation; I47.2 Ventricular tachycardia; J44.1 Chronic obstructive pulmonary disease with (acute) exacerbation; I50.43 Acute on chronic combined systolic (congestive) and diastolic (congestive) heart failure; E11.9 Type 2 diabetes mellitus without complications; F17.210 Nicotine dependence, cigarettes, uncomplicated; K21.9 Gastro-esophageal reflux disease without esophagitis; D64.9 Anemia, unspecified; E78.5 Hyperlipidemia, unspecified; I25.10 Atherosclerotic heart disease of native coronary artery without angina pectoris; I27.20 Pulmonary hypertension, unspecified; Z79.4 Long term (current) use of insulin
CPT/HCPCS: 36415; 71046; 71275; 78452; 80048; 80053; 80061; 80076; 81001; 82962; 83036; 83735; 83880; 84439; 84443; 84484; 85025; 85027; 85610; 93005; 93010; 93017; 93306; 93460; 93970; 94640; 94760; 96374; G0378; A9270-GY; A9502; J0360; J1250; J1644; J1815; J1940; J2250; J2785; J2930; J3010; J7050; J7512; Q9967

== ENCOUNTER 2020-01-01 12:29 | Emergency (ER) | payer BC ==
--- NOTE | 2020-01-01 13:36 | Event Note ---
ED Screening Note ED Screening Note: states that two days ago she fell out of the bed states she is having left knee pain and left lower leg pain states she has swelling in the left leg states that she is out of her medications states she has an appt with her coke inspector in two days This initial assessment/diagnostic orders/clinical plan/treatment(s) is/are subject to change based on patients health status, clinical progression and re- assessment by fellow clinical providers in the ED. Further treatment and workup at subsequent clinical providers discretion. Patient/guardian urged not to elope from the ED as their condition may be serious if not clinically assessed and managed. Initial orders include: XR of the left knee and tib fib
--- NOTE | 2020-01-01 15:08 | XRay Report ---
LEFT KNEE 3 VIEWS INDICATION: fall out of bed, left knee pain. COMPARISON: None. IMPRESSION: No acute osseous or soft tissue abnormality. Mild medial compartment joint space narr owing and mild tibial spine and retropatellar spurring is identified. LEFT TIBIA FIBULA 2 VIEWS INDICATION: fall out of bed, left knee pain. COMPARISON: None. IMPRESSION: No acute osseous or soft tissue abnormality. Moderate diffuse subcutaneous edema is n oted. Signer Name: Ulises Garcia Jr, MD Signed: 01/01/2020 3:03 PM Workstation Name: [id number]
--- NOTE | 2020-01-01 18:12 | XRay Report ---
CHEST 2 VIEWS INDICATION / CLINICAL INFORMATION: hx CHF, swelling. COMPARISON: 10/14/2019 FINDINGS: SUPPORT DEVICES: None. HEART / MEDIASTINUM: Stable mild enlargement of the cardiac silhouette with prominence of upper zone vessels. LUNGS / PLEURA: No convincing evidence of acute interstitial or airspace disease. No pneumothorax. ADDITIONAL FINDINGS: No significant additional findings. IMPRESSION: 1. Mild cardiomegaly with pulmonary venous hypertension. Signer Name: Andre Diego MD Signed: 01/01/2020 6:08 PM Workstation Name: [id number]
[2020-01-01 20:02] LABS: Basophils # (Auto) 0.1 K/mm3 (0.0-0.1); Basophils % (Auto) 1.1 % (0.0-1.8); Eosinophils # (Auto) 0.1 K/mm3 (0.0-0.4); Eosinophils % (Auto) 1.1 % (0.0-4.3); Hematocrit 34.2 % (30.3-42.9); Hemoglobin 12.1 gm/dl (10.1-14.3); Mean Corpuscular HGB Conc 36 % (30-34); Mean Corpuscular Volume 77 fl (79-97); Monocytes # (Auto) 0.6 K/mm3 (0.0-0.8); Monocytes % (Auto) 7.7 % (0.0-7.3); Platelet Count 289 K/mm3 (140-440); Red Blood Count 4.43 M/mm3 (3.65-5.03); Red Cell Distribution Width 15.8 % (13.2-15.2)
[2020-01-01] MEDS ORDERED: FUROSEMIDE 20 MG TAB PO ONE (20:08)
[2020-01-01 20:32] LABS: Alanine Aminotransferase 9 units/L (7-56); Albumin 3.9 g/dL (3.9-5); BUN/Creatinine Ratio 22; Blood Urea Nitrogen 11 mg/dL (7-17); Calcium 9.8 mg/dL (8.4-10.2); Hemolysis Index 0
[2020-01-01 21:17] VITALS: BP 181/83
--- NOTE | 2020-01-01 21:23 | Emergency Department Report ---
ED Extremity Problem HPI - General Chief complaint: Extremity Problem,Nontraumatic Stated complaint: LEGS SWOLLEN Time Seen by Provider: 01/01/20 13:35 Source: patient Mode of arrival: Ambulatory Limitations: No Limitations - History of Present Illness Initial comments: Patient is a 54-year-old -[place] female with a history of morbid obesity, hypertension, swn-ehbzoht-tgdejzife diabetes, hyperlipidemia and CHF who presents to the ED with complaint of bilateral knee and lower leg pain with swelling after she slipped off the bed and fell down landing on her knees 2 days ago. Patient also states that she ran out of her furosemide a week ago and has not been able to fill it and therefore has not been able to take the medication. Patient states that she also ran out of her hypertension medication as well as her cholesterol medicine and would like a refill on the same. Patient denies head or neck injuries, dizziness, syncope, chest pain, shortness of breath, abdominal pain, low back pain, numbness and tingling or weakness of lower ex tremities bilaterally, change in vision, seizures, fever and chills or loss of consciousness. Patient states that prior to arrival in the ED she took Tylenol and that her leg pains have resolved. MD Complaint: extremity pain, extremity swelling, cold extremity, joint swelli ng, joint paint, other (Bilateral knee and lower leg pain with swelling) -: Sudden, days(s) (2) Location: bilateral lower extremity (Bilateral knees and lower legs), knee (bilaterally) History of Same: Yes -: Yes myalgia, Yes arthralgia, No fever, No associated dyspnea, No associated chest pain Radiation: none Severity scale (0 -10): 1 Quality: aching, dull Consistency: constant Improves with: nothing Worsens with: weight bearing, walking, exertion Associated Symptoms: denies other symptoms, arthralgias. denies: chest pain, shortness of breath, fever, myalgias, rash, other - Related Data Previous Rx's Medication Instructions Recorded Last Taken Type Aspirin [Aspirin BABY CHEW TAB] 81 mg PO QDAY #30 tab.chew 10/27/19 Unknown Rx Budesonide/Formoterol Fumarate 10.2 gm IH BID #1 hfa.aer.ad 10/27/19 Unknown Rx [Symbicort 160-4.5 Mcg Inhaler] Insulin NPH/Regular [NovoLIN 70/30] 30 unit SUB-Q BIDDIAB #10 ml 10/27/19 Unknown Rx Ipratropium/Albuterol Sulfate 1 ampul IH Q6HRT PRN #30 ampul.neb 10/27/19 Unknown Rx [DUONEB *Not for PRN Use*] predniSONE [Deltasone] 40 mg PO QDAY #7 tablet 10/27/19 Unknown Rx AtorvaSTATin [Lipitor] 40 mg PO QHS #30 tablet 01/01/20 Unknown Rx Furosemide [Lasix TAB] 40 mg PO 0600,1800 #60 tablet 01/01/20 Unknown Rx Metoprolol [Lopressor TAB] 12.5 mg PO BID@0800,1700 #30 tablet 01/01/20 Unknown Rx NIFEdipine XL [Procardia Xl] 90 mg PO QDAY #30 tablet 01/01/20 Unknown Rx Allergies Allergy/AdvReac Type Severity Reaction Status Date / Time No Known Allergies Allergy Verified 12/02/16 17:08 ED Review of Systems ROS: Stated complaint: LEGS SWOLLEN Other details as noted in HPI Constitutional: denies: chills, fever Eyes: denies: eye pain, eye discharge, vision change ENT: denies: ear pain, throat pain Respiratory: denies: cough, shortness of breath, wheezing Cardiovascular: denies: chest pain, palpitations Endocrine: no symptoms reported Gastrointestinal: denies: abdominal pain, nausea, diarrhea Genitourinary: denies: urgency, dysuria, discharge Musculoskeletal: arthralgia (bilateral leg pain and swelling; Bilateral knee pain), myalgia. denies: back pain, joint swelling Skin: denies: rash, lesions Neurological: denies: headache, weakness, paresthesias Psychiatric: denies: anxiety, depression Hematological/Lymphatic: denies: easy bleeding, easy bruising ED Past Medical Hx - Past Medical History Previous Medical History?: Yes Hx Hypertension: Yes Hx Diabetes: Yes Hx Asthma: Yes Additional medical history: bronchitis - Surgical History Past Surgical History?: Yes Additional Surgical History: tubal ligation. LEFT ELBOW SURGERY - Social History Smoking Status: Never Smoker Substance Use Type: None - Medications Home Medications: Home Medications Medication Instructions Recorded Confirmed Last Taken Type Aspirin [Aspirin BABY CHEW TAB] 81 mg PO QDAY #30 tab.chew 10/27/19 Unknown Rx Budesonide/Formoterol Fumarate 10.2 gm IH BID #1 hfa.aer.ad 10/27/19 Unknown Rx [Symbicort 160-4.5 Mcg Inhaler] Insulin NPH/Regular [NovoLIN 70/30] 30 unit SUB-Q BIDDIAB #10 ml 10/27/19 Unknown Rx Ipratropium/Albuterol Sulfate 1 ampul IH Q6HRT PRN #30 ampul.neb 10/27/19 Unknown Rx [DUONEB *Not for PRN Use*] predniSONE [Deltasone] 40 mg PO QDAY #7 tablet 10/27/19 Unknown Rx AtorvaSTATin [Lipitor] 40 mg PO QHS #30 tablet 01/01/20 Unknown Rx Furosemide [Lasix TAB] 40 mg PO 0600,1800 #60 tablet 01/01/20 Unknown Rx Metoprolol [Lopressor TAB] 12.5 mg PO BID@0800,1700 #30 tablet 01/01/20 Unknown Rx NIFEdipine XL [Procardia Xl] 90 mg PO QDAY #30 tablet 01/01/20 Unknown Rx ED Physical Exam - General Limitations: No Limitations General appearance: alert, in no apparent distress - Head Head exam: Present: atraumatic, normocephalic, normal inspection - Eye Eye exam: Present: normal appearance, PERRL, EOMI Pupils: Present: normal accommodation - ENT ENT exam: Present: normal exam, normal orophraynx, mucous membranes moist, TM's normal bilaterally, normal external ear exam - Neck Neck exam: Present: normal inspection, full ROM - Respiratory Respiratory exam: Present: normal lung sounds bilaterally. Absent: respiratory distress, wheezes, rales, rhonchi, chest wall tenderness, accessory muscle use, decreased breath sounds, prolonged expiratory - Cardiovascular Cardiovascular Exam: Present: regular rate, normal rhythm, normal heart sounds. Absent: systolic murmur, diastolic murmur, rubs, gallop - GI/Abdominal GI/Abdominal exam: Present: soft, normal bowel sounds. Absent: tenderness, guarding, rebound, hyperactive bowel sounds, hypoactive bowel sounds - Extremities Exam Extremities exam: Present: normal inspection, full ROM, normal capillary refill, pedal edema (bilateral 2+ edema). Absent: joint swelling, calf tenderness - Back Exam Back exam: Present: normal inspection, full ROM. Absent: tenderness, CVA tenderness (R), CVA tenderness (L), muscle spasm, paraspinal tenderness, vertebral tenderness - Neurological Exam Neurological exam: Present: alert, oriented X3, CN II-XII intact, normal gait, reflexes normal - Psychiatric Psychiatric exam: Present: normal affect, normal mood - Skin Skin exam: Present: warm, dry, intact, normal color. Absent: rash ED Course Vital Signs 01/01/20 01/01/20 01/01/20 13:11 13:36 17:29 Temperature 97.9 F 97.9 F Pulse Rate 94 H 94 H 85 Respiratory 16 18 18 Rate Blood Pressure 182/83 Blood Pressure 182/83 206/101 [Right] O2 Sat by Pulse 92 93 91 Oximetry 01/01/20 19:38 Temperature 97.8 F Pulse Rate 86 Respiratory 14 Rate Blood Pressure Blood Pressure 174/89 [Right] O2 Sat by Pulse 93 Oximetry ED Medical Decision Making - Lab Data Result diagrams: 01/01/20 19:23 01/01/20 19:23 - Radiology Data Radiology results: report reviewed, image reviewed Findings [address] [address] XRay Report Signed Patient: ALEXUS PENA MR#: [id number] : 1965 Acct:[id number] Age/Sex: 54 / F ADM Date: 01/01/20 Loc: ED Attending Dr: Ordering Physician: WILIAM ESTRADA Date of Service: 01/01/20 Procedure(s): XR knee 3V LT Accession Number(s): [id number] cc: WILIAM ESTRADA Fluoro Time In Minutes: LEFT KNEE 3 VIEWS INDICATION: fall out of bed, left knee pain. COMPARISON: None. IMPRESSION: No acute osseous or soft tissue abnormality. Mild medial compartment joint space narrowing and mild tibial spine and retropatellar spurring is identified. LEFT TIBIA FIBULA 2 VIEWS INDICATION: fall out of bed, left knee pain. COMPARISON: None. IMPRESSION: No acute osseous or soft tissue abnormality. Moderate diffuse subcutaneous edema is noted. Signer Name: Ulises Garcia Jr, MD Signed: 01/01/2020 3:03 PM Workstation Name: [id number] Transcribed By: TTR Dictated By: ULISES GARCIA JR, MD Electronically Authenticated By: ULISES GARCIA JR, MD Signed Date/Time: 01/01/20 1503 DD/ 150 TD/TT Findings [facility] [address] [place] [address] XRay Report Signed Patient: ALEXUS PENA MR#: [id number] : 1965 Acct:[id number] Age/Sex: 54 / F ADM Date: 01/01/20 Loc: ED Attending Dr: Ordering Physician: WILIAM ESTRADA Date of Service: 01/01/20 Procedure(s): XR chest routine 2V Accession Number(s): [id number] cc: WILIAM ESTRADA Fluoro Time In Minutes: CHEST 2 VIEWS INDICATION / CLINICAL INFORMATION: hx CHF, swelling. COMPARISON: 10/14/2019 FINDINGS: SUPPORT DEVICES: None. HEART / MEDIASTINUM: Stable mild enlargement of the cardiac silhouette with pro minence of upper zone vessels. LUNGS / PLEURA: No convincing evidence of acute interstitial or airspace disease. No pneumothorax. ADDITIONAL FINDINGS: No significant additional findings. IMPRESSION: 1. Mild cardiomegaly with pulmonary venous hypertension. Signer Name: Andre Diego MD Signed: 01/01/2020 6:08 PM Workstation Name: [id number] Transcribed By: ABIDA Dictated By: Andre Diego MD Electronically Authenticated By: Andre Diego MD Signed Date/Time: 01/01/201807 DD/ 06 TD/TT: - Medical Decision Making This is a 54-year-old female with a history of CHF, hypertension, fme-yotzxyx-yprdyhlna diabetes and morbid obesity who presented to the ED with bilateral knee and lower leg pain after she slipped off the bed and fell down and landed on the carpeted floor 2 days ago. In the ED, patient is alert and oriented x3 and is not in distress. Patient's pain is well controlled with Tylenol which she took prior to arrival in the ED. All lab test results were reviewed and are all nonactionable. Patient has not been on her furosemide and other medications for 1 week after running out of the medications. Patient was given 40 mg oral tablets of furosemide in the ED. Patient had no pain in the ED and therefore was not treated for any pain. Left knee x-rays show no acute fractures or subluxations. Left tib-fib x-ray shows no acute fractures or subluxations. Chest x-ray shows mild cardiomegaly with pulmonary vascular congestion consistent with the patient's baseline chronic CHF. On reevaluation, patient still has no leg pain or knee pain after taking Tylenol prior to arrival in the ED. Patient was discharged home with prescription for her regular medication that she required refill on. Patient was advised to follow-up with her primary care physician in 5 to 7 days for reevaluation or return to the ED immediately if symptoms get worse. - Differential Diagnosis chronic osteoarthritis; muscle strain; knee fracture; Fluid overload Critical care attestation.: If time is entered above; I have spent that time in minutes in the direct care of this critically ill patient, excluding procedure time. ED Disposition Clinical Impression: Bilateral lower extremity pain, Bilateral edema of lower extremity, Chronic pain of both knees Disposition: DC- TO HOME OR SELFCARE Is pt being admited?: No Does the pt Need Aspirin: No Condition: Stable Instructions: Arthralgia (ED), Leg Edema (ED), Knee Pain (ED), Muscle Spasm (ED) Additional Instructions: Take your regular pain medications at home. Take the prescribed medications as advised and follow-up with your primary care physician in 5 to 7 days for reevaluation. Return to the ED immediately if symptoms get worse. Prescriptions: AtorvaSTATin [Lipitor] 40 mg PO QHS #30 tablet Furosemide [Lasix TAB] 40 mg PO 0600,1800 #60 tablet Metoprolol [Lopressor TAB] 12.5 mg PO BID@0800,1700 #30 tablet NIFEdipine XL [Procardia Xl] 90 mg PO QDAY #30 tablet Referrals: [facility] [Outside] - 3-5 Days Time of Disposition: 21:27 Print Language: ANGUILLAN
== END 2020-01-01 21:34 | disposition home or self-care (01) ==
LOC: ED 12:29
DX: M25.561 Pain in right knee (principal); M25.562 Pain in left knee; M79.89 Other specified soft tissue disorders; G89.29 Other chronic pain; M79.605 Pain in left leg; E66.01 Morbid (severe) obesity due to excess calories; E78.5 Hyperlipidemia, unspecified; I11.0 Hypertensive heart disease with heart failure; I50.9 Heart failure, unspecified; E11.9 Type 2 diabetes mellitus without complications; J45.909 Unspecified asthma, uncomplicated; Z98.51 Tubal ligation status; Z68.42 Body mass index [BMI] 45.0-49.9, adult; Z98.890 Other specified postprocedural states; Z79.899 Other long term (current) drug therapy; W06.XXXA Fall from bed, initial encounter; Y93.89 Activity, other specified; Y92.89 Other specified places as the place of occurrence of the external cause; Y99.8 Other external cause status
CPT/HCPCS: 36415; 71046; 80053; 83880; 85025

== ENCOUNTER 2020-12-29 06:31 | Emergency (ER) | payer MEDICAID ==
--- NOTE | 2020-12-29 07:23 | Emergency Department Report ---
HPI - General Chief Complaint: Pain General Time Seen by Provider: 12/29/20 06:36 - HPI HPI: This is a 55-year-old -[place] female presents to the emergency department via EMS from home with complaint of bilateral foot pain that has been going on over the past 2 weeks. The left foot is generally more painful than the right. The patient says "I think it is my gout." She says that she tried some Tylenol PM for her symptoms without much relief. She does have a history of chronic lymphedema but denies that there is any increased swelling. She denies that there is any change in skin color, rash or lesions. She also has a past medical history of asthma, CHF, diabetes, hypertension. The patient follows with a primary care provider "across the street", Dr. Castro. The patient does ambulate. No recent travel or sick contacts at home. She denies any trauma or injury. The pain is currently 7 out of 10 in intensity but worsens when she is bearing weight or ambulating. ED Past Medical Hx - Past Medical History Previous Medical History?: Yes Hx Hypertension: Yes Hx Congestive Heart Failure: Yes Hx Diabetes: Yes Hx Asthma: Yes Additional medical history: bronchitis, GOUT. LYMPHPHADEMA - Surgical History Past Surgical History?: Yes Additional Surgical History: tubal ligation. LEFT ELBOW SURGERY - Social History Smoking Status: Former Smoker Substance Use Type: None - Medications Home Medications: Home Medications Medication Instructions Recorded Confirmed Last Taken Type Aspirin [Aspirin BABY CHEW TAB] 81 mg PO QDAY #30 tab.chew 10/27/19 Unknown Rx Budesonide/Formoterol Fumarate 10.2 gm IH BID #1 hfa.aer.ad 10/27/19 Unknown Rx [Symbicort 160-4.5 Mcg Inhaler] Insulin NPH/Regular [NovoLIN 70/30] 30 unit SUB-Q BIDDIAB #10 ml 10/27/19 Unknown Rx Ipratropium/Albuterol Sulfate 1 ampul IH Q6HRT PRN #30 ampul.neb 10/27/19 Unknown Rx [DUONEB *Not for PRN Use*] predniSONE [Deltasone] 40 mg PO QDAY #7 tablet 10/27/19 Unknown Rx AtorvaSTATin [Lipitor] 40 mg PO QHS #30 tablet 01/01/20 Unknown Rx Furosemide [Lasix TAB] 40 mg PO 0600,1800 #60 tablet 01/01/20 Unknown Rx Metoprolol [Lopressor TAB] 12.5 mg PO BID@0800,1700 #30 tablet 01/01/20 Unknown Rx NIFEdipine XL [Procardia Xl] 90 mg PO QDAY #30 tablet 01/01/20 Unknown Rx Potassium Chloride [K-Dur] 40 meq PO DAILY #30 tab 10/20/20 Unknown Rx Ibuprofen [Motrin 800 MG tab] 800 mg PO Q8HR PRN #15 tablet 12/29/20 Unknown Rx Sulfamethoxazole/Trimethoprim 1 each PO BID #14 tablet 12/29/20 Unknown Rx [Bactrim DS TAB] ED Review of Systems ROS: Stated complaint: LT FOOT PAIN Other details as noted in HPI Comment: All other systems reviewed and negative Constitutional: denies: chills, fever Eyes: denies: eye pain, vision change ENT: denies: ear pain, throat pain Respiratory: denies: cough, shortness of breath Cardiovascular: denies: chest pain, palpitations Gastrointestinal: denies: abdominal pain, vomiting Genitourinary: denies: dysuria, discharge Musculoskeletal: arthralgia. denies: joint swelling Skin: denies: rash, lesions Neurological: denies: numbness, paresthesias Physical Exam - Physical Exam Vital Signs: Vital Signs 12/29/20 12/29/20 12/29/20 06:57 07:16 07:17 Temperature 98.2 F 98.4 F Pulse Rate 95 H 91 H Respiratory 24 21 21 Rate Blood Pressure 156/76 Blood Pressure 155/76 [Left] O2 Sat by Pulse 95 93 93 Oximetry Physical Exam: GENERAL: The patient is well-developed well-nourished. HENT: Normocephalic. Atraumatic. Patient has moist mucous membranes. EYES: Extraocular motions are intact. NECK: Supple. Trachea is midline. CHEST/LUNGS: Clear to auscultation. There is no respiratory distress noted. HEART/CARDIOVASCULAR: Regular. There is no tachycardia. There is no murmur. ABDOMEN: Abdomen is soft, nontender. Patient has normal bowel sounds. Obese habitus. SKIN: Skin is warm and dry. Patient has chronic bilateral lower extremity lymphedema. NEURO: The patient is awake, alert, and oriented. The patient is cooperative. The patient has no focal neurologic deficits. Normal speech. MUSCULOSKELETAL: There is some tenderness to palpation to the bilateral midfoot with left greater than right. There is no limitation range of motion. Capillary refill less than 2 seconds. ED Course Vital Signs 12/29/20 12/29/20 12/29/20 06:57 07:16 07:17 Temperature 98.2 F 98.4 F Pulse Rate 95 H 91 H Respiratory 24 21 21 Rate Blood Pressure 156/76 Blood Pressure 155/76 [Left] O2 Sat by Pulse 95 93 93 Oximetry ED Medical Decision Making - Lab Data Result diagrams: 12/29/20 07:20 12/29/20 07:20 Lab Results 12/29/20 12/29/20 Range/Units 07:20 07:20 WBC 6.1 (4.5-11.0) K/mm3 RBC 5.10 H (3.65-5.03) M/mm3 Hgb 11.3 (10.1-14.3) gm/dl Hct 34.5 (30.3-42.9) % MCV 68 L (79-97) fl MCH 22 L (28-32) pg MCHC 33 (30-34) % RDW 23.9 H (13.2-15.2) % Plt Count 325 (140-440) K/mm3 Lymph % (Auto) 10.7 L (13.4-35.0) % [place] % (Auto) 9.0 H (0.0-7.3) % Eos % (Auto) 3.9 (0.0-4.3) % Baso % (Auto) 0.7 (0.0-1.8) % Lymph # (Auto) 0.7 L (1.2-5.4) K/mm3 [place] # (Auto) 0.6 (0.0-0.8) K/mm3 Eos # (Auto) 0.2 (0.0-0.4) K/mm3 Baso # (Auto) 0.0 (0.0-0.1) K/mm3 Seg Neutrophils % 75.7 H (40.0-70.0) % Seg Neutrophils # 4.6 (1.8-7.7) K/mm3 Sodium 132 L (137-145) mmol/L Potassium 3.4 L (3.6-5.0) mmol/L Chloride 88.3 L (98-107) mmol/L Carbon Dioxide 38 H (22-30) mmol/L Anion Gap 9 mmol/L BUN 11 (7-17) mg/dL Creatinine 0.7 (0.6-1.2) mg/dL Estimated GFR > 60 ml/min BUN/Creatinine Ratio 16 % Glucose 99 (65-100) mg/dL Uric Acid 9.1 H (3.5-7.6) mg/dL Calcium 8.6 (8.4-10.2) mg/dL - Radiology Data Radiology results: report reviewed EXAMINATION: Bilateral foot radiograph, 3 views, 12/29/2020 CLINICAL INFORMATION: Bilateral foot pain COMPARISON: Left foot radiograph, 12/02/2016 FINDINGS: Right foot: There is no evidence of acute bony fracture or dislocation. Mild to moderate bony degenerative changes of the mid and hindfoot are noted with degenerative calcaneal spurring. There is suspected generalized soft tissue swelling. Left foot: There is no evidence of acute fracture or dislocation. Mild to moderate bony degenerative changes of the mid and hindfoot are noted similar to the right foot. There is suspected mild generalized soft tissue swelling. Bones appear subjectively demineralized. IMPRESSION: 1. Mild to moderate bony degenerative changes of both feet. - Medical Decision Making This patient presents with a 2-week history of atraumatic bilateral foot pain. The patient does have some reproducible tenderness to palpation to the bilateral midfoot and some of the plantar portion, left greater than right. Patient has chronic lymphedema of the bilateral lower extremities. There is no fluctuance, warmth, crepitus. Cap refill is less than 2 seconds. I was able to take the bedside ultrasound and see that there is patent dorsalis pedis arteries and pulses bilaterally. X-ray of the bilateral foot shows osteoarthritis but there is no sign of any fracture, dislocation, osteomyelitis. Patient's labs have been unremarkable including CBC and metabolic panel. Patient thought that her symptoms may be secondary to gout but she had a unre markable uric acid level. She was given a shot of Toradol and upon reevaluation says that there is some improvement. Patient says that she has outpatient follow-up available with a primary care physician and a senior restaurant manager. She does not appear to have any emergent medical condition that requires ad mission. She will be given a prescription for anti-inflammatories and was given some empiric antibiotics. She was also given a referral for a local orthopedist. She will return to the emergency department with any worsening of her symptoms or with any acute distress. - Differential Diagnosis Cellulitis, peripheral neuropathy, osteomyelitis, gout Critical Care Time: No Critical care attestation.: If time is entered above; I have spent that time in minutes in the direct care of this critically ill patient, excluding procedure time. ED Disposition Clinical Impression: Bilateral foot pain Osteoarthritis of foot Qualifiers: Osteoarthritis type: unspecified Laterality: bilateral Qualified Code(s): M19.071 - Primary osteoarthritis, right ankle and foot; M19.072 - Primary osteoarthritis, left ankle and foot Disposition: TO HOME OR SELFCARE Is pt being admited?: No Condition: Stable Instructions: Osteoarthritis, Diabetic Neuropathy, Foot Pain Additional Instructions: Please follow-up with your primary care physician and/or senior restaurant manager in the next few days. In case you prefer, I have given you a referral for a local orthopedist, Dr. Osorio, to follow-up regarding your foot pain. Take all of your medications as prescribed. Return to the emergency department with any worsening of your symptoms, including increased pain, swelling of the feet, skin color change, development of fever. Return to the emergency department with any new or concerning symptoms not addressed during this current emergency department visit, or with any acute distress. Prescriptions: Sulfamethoxazole/Trimethoprim [Bactrim DS TAB] 1 each PO BID #14 tablet Ibuprofen [Motrin 800 MG tab] 800 mg PO Q8HR PRN #15 tablet PRN Reason: Pain , Severe (7-10) Referrals: KATLYN CALLEJAS MD [Primary Care Provider] - 2-3 Days senior restaurant manager, Your [Other] - 2-3 Days MARTHA OSORIO MD [Staff Physician] - 2-3 Days Time of Disposition: 09:01
[2020-12-29 07:44] LABS: Basophils % (Auto) 0.7 % (0.0-1.8); Eosinophils # (Auto) 0.2 K/mm3 (0.0-0.4); Eosinophils % (Auto) 3.9 % (0.0-4.3); Hematocrit 34.5 % (30.3-42.9); Hemoglobin 11.3 gm/dl (10.1-14.3); Lymphocytes # (Auto) 0.7 K/mm3 (1.2-5.4); Lymphocytes % (Auto) 10.7 % (13.4-35.0); Mean Corpuscular HGB Conc 33 % (30-34); Monocytes # (Auto) 0.6 K/mm3 (0.0-0.8); Platelet Count 325 K/mm3 (140-440)
[2020-12-29 07:51] LABS: Mean Corpuscular Volume 68 fl (79-97); Red Cell Distribution Width 23.9 % (13.2-15.2)
[2020-12-29 07:59] LABS: Blood Urea Nitrogen 11 mg/dL (7-17); Calcium 8.6 mg/dL (8.4-10.2); Hemolysis Index 2; Uric Acid 9.1 mg/dL (3.5-7.6)
--- NOTE | 2020-12-29 08:35 | XRay Report ---
EXAMINATION: Bilateral foot radiograph, 3 views, 12/29/2020 CLINICAL INFORMATION: Bilateral foot pain COMPARISON: Left foot radiograph, 12/02/2016 FINDINGS: Right foot: There is no evidence of acute bony fracture or dislocation. Mild to moderate bony degener ative changes of the mid and hindfoot are noted with degenerative calcaneal spurring. There is suspec cecilia generalized soft tissue swelling. Left foot: There is no evidence of acute fracture or dislocation. Mild to moderate bony degenerative changes of the mid and hindfoot are noted similar to the right foot. There is suspected mild generali zed soft tissue swelling. Bones appear subjectively demineralized. IMPRESSION: 1. Mild to moderate bony degenerative changes of both feet. Signer Name: Sarah Jauregui MD Signed: 12/29/2020 8:30 AM Workstation Name: [id number]
[2020-12-29 08:44] LABS: BUN/Creatinine Ratio 16
[2020-12-29] MEDS ORDERED: KETOROLAC 60 MG/2 ML INJ IM ONE (08:45)
[2020-12-29 11:25] VITALS: BP 168/86
== END 2020-12-29 11:25 | disposition home or self-care (01) ==
LOC: ED 06:31
DX: M19.072 Primary osteoarthritis, left ankle and foot (principal); M19.071 Primary osteoarthritis, right ankle and foot; I11.0 Hypertensive heart disease with heart failure; I50.9 Heart failure, unspecified; E11.9 Type 2 diabetes mellitus without complications; J45.909 Unspecified asthma, uncomplicated; Z98.51 Tubal ligation status; Z98.890 Other specified postprocedural states; Z87.891 Personal history of nicotine dependence; Z79.899 Other long term (current) drug therapy
CPT/HCPCS: 36415; 73630; 80048; 84550; 85025; 96372; 99284; J1885